=== PATIENT | male | born 1970 | race Caucasian/White ===

== ENCOUNTER 2020-10-12 07:00 | Outpatient (REF) | payer BC, SELFPAY ==
[2020-10-12 07:35] LABS: MANUAL DIFF FLAG NO
[2020-10-12 07:39] LABS: Basophils Absolute Auto 0.1 X10*3/uL (0.0-0.2); Basophils Percent Auto 0.6 % (0-2); Eosinophils Absolute Auto 0.3 X10*3/uL (0.0-0.4); Eosinophils Percent Auto 3.4 % (0-4); Hematocrit 45.4 % (42-52); Hemoglobin 15.2 g/dl (14.0-18.0); Imm Gran Abs Auto 0.04 X10*3/uL (0.00-0.03); Imm Gran Pct Auto 0.4 % (0.0-0.4); Lymphocytes Percent Auto 53.3 % (20-40); Mean Corpuscular HGB Conc 33.5 g/dl (31.0-36.0); Mean Corpuscular Hemoglobin 28.7 pg (27.0-33.0); Mean Corpuscular Volume 85.8 fL (80-98); Mean Platelet Volume 10.2 fL (9.4-12.4); Monocytes Absolute Auto 0.5 X10*3/uL (0.1-1.2); Monocytes Percent Auto 5.8 % (2-11); Neutrophils Absolute Auto 3.4 X10*3/uL (2.0-8.3); Neutrophils Percent Auto 36.5 % (45-73); Platelet Count 213 X10*3/uL (160-400); Red Blood Count 5.29 X10*6/uL (4.60-5.80); Red Cell Distribution Width 12.4 % (11.0-16.0); White Blood Count 9.4 X10*3/uL (4.8-10.8)
[2020-10-12 08:05] LABS: Alanine Aminotransferase 55 U/L (0-40); Albumin Level 4.1 g/dL (3.5-5.0); Alkaline Phosphatase 95 U/L (39-117); Anion Gap 11 (12-20); Aspartate Amino Transferase 28 U/L (5-37); Bilirubin Total 1.1 mg/dL (0.0-1.0); Blood Urea Nitrogen 20 mg/dL (9-16); Calcium 8.8 mg/dL (8.4-10.2); Carbon Dioxide 25 mmol/L (22-29); Chloride 106 mmol/L (96-108); Cholesterol 282 mg/dL; Estimated Glomerular Filt Rate > 60; Glucose Random 97 mg/dL (60-115); HDL Cholesterol 42 mg/dL; LDL Cholesterol Calculated 208 mg/dl; Potassium 4.3 mmol/L (3.3-5.1); Sodium 138 mmol/L (135-145); Total Protein 7.3 g/dL (6.5-8.0); Triglycerides 160 mg/dL
== END 2020-10-12 07:01 | disposition home or self-care (01) ==
LOC: HO.LAB 07:00
PROVIDERS: PCP Internal Medicine Geriatric Medicine; Visit Provider Internal Medicine Geriatric Medicine
DX: D72.820 Lymphocytosis (symptomatic) (principal); Z13.220 Encounter for screening for lipoid disorders
CPT/HCPCS: 36415; 80053; 80061; 85025

== ENCOUNTER 2020-10-16 15:34 | Outpatient (REF) | payer BC, SELFPAY ==
--- NOTE | ~2020-10-16 | XR_ITS ---
EXAMINATION: XR ELBOW, LEFT CLINICAL INFORMATION: Pain left elbow COMPARISON: None TECHNIQUE: Left elbow is imaged in 3 views. FINDINGS: There is a small to moderate spurring involving the olecranon. There may be a borderline medial epicondylar spur. There is no fracture or dislocation or destructive process. No elbow capsular effusion. No joint narrowing or erosive change. Normal bony mineralization. XR/XR elbow LT min 3V IMPRESSION: Small to moderate olecranon spur. Probable borderline spur medial epicondyle.
--- NOTE | ~2020-10-16 | XR_ITS ---
EXAMINATION: XR FOOT, LEFT CLINICAL INFORMATION: Pain left foot COMPARISON: None TECHNIQUE: AP, lateral, and oblique views of the left foot. FINDINGS: Bony mineralization is normal. There is no acute or healing fracture, dislocation, destructive process. There is mild hallux valgus, or approximately 21 degrees. There is some borderline spurring lateral first metatarsal head. No joint narrowing or erosive change. There are posterior and plantar calcaneal spurs. The retrocalcaneal recess is preserved. XR/XR foot LT min 3V IMPRESSION: 1. Posterior and plantar calcaneal spurs. 2. Mild hallux valgus great toe.
== END 2020-10-16 15:35 | disposition home or self-care (01) ==
LOC: HO.XRAY 15:34
PROVIDERS: PCP Internal Medicine Geriatric Medicine; Visit Provider Internal Medicine Geriatric Medicine
DX: M25.522 Pain in left elbow (principal); M79.672 Pain in left foot
CPT/HCPCS: 73080; 73630

== ENCOUNTER → 2020-11-06 09:03 | Outpatient (BNVA) | payer BC, SELFPAY | PROVIDERS: PCP Internal Medicine Geriatric Medicine; Visit Provider Physician Assistant ==

== ENCOUNTER → 2021-06-12 07:49 | Outpatient (BNVA) | payer BC, SELFPAY | PROVIDERS: Referring Provider Internal Medicine Geriatric Medicine; Visit Provider Physician Assistant Surgical ==

== ENCOUNTER → 2021-06-25 08:17 | Outpatient (BNVA) | payer BC, SELFPAY | PROVIDERS: PCP Internal Medicine Geriatric Medicine; Visit Provider Surgery ==

== ENCOUNTER → 2021-07-04 07:23 | Outpatient (BNVA) | payer BC, SELFPAY | PROVIDERS: PCP Internal Medicine Geriatric Medicine; Visit Provider Surgery ==

== ENCOUNTER → 2021-07-29 07:40 | Outpatient (BNVA) | payer BC, SELFPAY | PROVIDERS: PCP Internal Medicine Geriatric Medicine; Visit Provider Surgery ==

== ENCOUNTER 2021-08-01 07:01 | Outpatient (REF) | payer BC, SELFPAY ==
--- NOTE | ~2021-08-01 | XR_ITS ---
EXAMINATION: XR CHEST CLINICAL INFORMATION: Morbid obesity secondary to excess calories. COMPARISON: None TECHNIQUE: 2 views of the chest were obtained. FINDINGS: No significant abnormality is noted involving the heart, lungs, mediastinum, bony thorax or soft tissues. XR/XR chest 2V IMPRESSION: No acute cardiopulmonary process.
[2021-08-01 07:26] LABS: MANUAL DIFF FLAG NO
[2021-08-01 07:49] LABS: Basophils Percent Auto 0.5 % (0-2); Eosinophils Absolute Auto 0.4 X10*3/uL (0.0-0.4); Eosinophils Percent Auto 4.4 % (0-4); Hematocrit 44.7 % (42.0-52.0); Hemoglobin 15.4 g/dl (14.0-18.0); Imm Gran Abs Auto 0.02 X10*3/uL (0.00-0.03); Imm Gran Pct Auto 0.3 % (0.0-0.4); Lymphocytes Absolute Auto 3.8 X10*3/uL (1.2-4.9); Lymphocytes Percent Auto 48.1 % (20-40); Mean Corpuscular HGB Conc 34.5 g/dl (31.0-36.0); Mean Corpuscular Hemoglobin 29.2 pg (27.0-33.0); Mean Corpuscular Volume 84.8 fL (80.0-98.0); Mean Platelet Volume 10.4 fL (9.4-12.4); Monocytes Absolute Auto 0.6 X10*3/uL (0.1-1.2); Monocytes Percent Auto 7.1 % (2-11); Neutrophils Absolute Auto 3.2 x10*3/uL (2.0-8.3); Neutrophils Percent Auto 39.6 % (45-73); Platelet Count 189 X10*3/uL (160-400); Red Blood Count 5.27 X10*6/uL (4.60-5.80); Red Cell Distribution Width 12.4 % (11.0-16.0); White Blood Count 7.9 X10*3/uL (4.8-10.8)
[2021-08-01 07:56] LABS: Estimated Average Glucose 108 mg/dL; Hemoglobin A1c % 5.4 %
[2021-08-01 07:58] LABS: Alanine Aminotransferase 61 U/L (0-40); Albumin Level 4.1 g/dL (3.5-5.0); Alkaline Phosphatase 100 U/L (39-117); Anion Gap 10 (12-20); Aspartate Amino Transferase 25 U/L (5-37); Bilirubin Total 0.8 mg/dL (0.0-1.0); Blood Urea Nitrogen 18 mg/dL (9-16); C Reactive Protein 1.31 mg/dL (< or = 0.50); Calcium 9.5 mg/dL (8.4-10.2); Carbon Dioxide 27 mmol/L (22-29); Chloride 108 mmol/L (96-108); Cholesterol 269 mg/dL; Estimated Glomerular Filt Rate > 60; Glucose Random 105 mg/dL (60-115); HDL Cholesterol 38 mg/dL; Iron 66 mcg/dL (45-160); LDL Cholesterol Calculated 197 mg/dl; Percent Iron Saturation 18 % (15-50); Potassium 4.5 mmol/L (3.3-5.1); Sodium 140 mmol/L (135-145); Total Iron Binding Capacity 367 mcg/dL (228-428); Total Protein 7.3 g/dL (6.5-8.0); Triglycerides 170 mg/dL; Unsaturated Iron Binding 301 ug/dL
[2021-08-01 08:23] LABS: Ferritin 189 ng/mL (20-250); TSH reflex Free T4 2.29 uIU/mL (0.32-4.0); Vitamin D 25-OH Total 9.1 ng/mL (>30)
[2021-08-01 08:52] LABS: Insulin 14 uU/mL (2-29)
[2021-08-01 09:12] LABS: Folate 14.4 ng/mL (> or = 4.0); Vitamin B12 605 pg/mL (200-900)
[2021-08-04 13:36] LABS: Calcium (PTHI) 9.6 mg/dL (8.6-10.3); PTHI 68 pg/mL (14-64)
[2021-08-05 01:46] LABS: Zinc 94 mcg/dL (60-130)
[2021-08-06 05:40] LABS: Vitamin B1 6 nmol/L (8-30)
[2021-08-06 09:46] LABS: Vitamin A 40 mcg/dL (38-98)
== END 2021-08-01 07:02 | disposition home or self-care (01) ==
LOC: HO.XRAY 07:01
PROVIDERS: PCP Internal Medicine Geriatric Medicine; Visit Provider Surgery
DX: E66.01 Morbid (severe) obesity due to excess calories (principal); E78.5 Hyperlipidemia, unspecified; I10 Essential (primary) hypertension; J45.909 Unspecified asthma, uncomplicated; K21.9 Gastro-esophageal reflux disease without esophagitis
CPT/HCPCS: 36415; 71046; 80053; 80061; 82306; 82607; 82728; 82746; 83036; 83525; 83540; 83970; 84425; 84443; 84590; 84630; 85025; 86140

== ENCOUNTER 2021-08-05 16:18 | Outpatient (REF) | payer BC, SELFPAY ==
[2021-08-06 08:33] LABS: H Pylori Breath Test Positive (Negative)
== END 2021-08-05 16:19 | disposition home or self-care (01) ==
LOC: HO.LNP 16:18
PROVIDERS: Surgery; PCP Internal Medicine Geriatric Medicine; Referring Provider Internal Medicine Geriatric Medicine; Visit Provider Physician Assistant Surgical
DX: E66.01 Morbid (severe) obesity due to excess calories (principal); I10 Essential (primary) hypertension; E78.5 Hyperlipidemia, unspecified; K21.9 Gastro-esophageal reflux disease without esophagitis; J45.909 Unspecified asthma, uncomplicated; Z11.0 Encounter for screening for intestinal infectious diseases
CPT/HCPCS: 83013

== ENCOUNTER → 2021-08-07 08:15 | Outpatient (BNVA) | payer BC, SELFPAY | PROVIDERS: PCP Internal Medicine Geriatric Medicine; Visit Provider Dietitian, Registered | DX: E66.9 Obesity, unspecified (principal); Z68.38 Body mass index [BMI] 38.0-38.9, adult | CPT/HCPCS: 97802 ==

== ENCOUNTER → 2021-08-18 08:04 | Outpatient (BNVA) | payer BC, SELFPAY | PROVIDERS: PCP Internal Medicine Geriatric Medicine; Visit Provider Surgery | DX: E66.9 Obesity, unspecified (principal); Z68.39 Body mass index [BMI] 39.0-39.9, adult ==

== ENCOUNTER → 2021-08-25 07:22 | Outpatient (REF) | payer BC, SELFPAY ==
--- NOTE | ~2021-08-25 | US_ITS ---
EXAMINATION: US COMPLETE ABDOMEN WITH LIVER ELASTOGRAPHY CLINICAL INFORMATION: Morbid obesity. COMPARISON: None. TECHNIQUE: Real-time imaging of the abdominal viscera. Noninvasive ultrasound liver fibrosis assessment is performed using Rigo ElastPQ point quantification shear wave elastography (2D-SWE) with a C5-2 MHz transducer. Multiple elastography samples are obtained. FINDINGS: PANCREAS: The pancreas is mostly obscured by overlying gas. ABDOMINAL AORTA: The aorta appears ectatic but is of normal caliber. INFERIOR VENA CAVA: Visualized portions are normal. LIVER: The liver demonstrates normal size, lobulated contour and echogenicity. No focal lesion or intrahepatic biliary duct dilatation. The right lobe measures 16.3 cm in length. The left lobe measures 10.2 cm in length. Portal flow is hepatopedal. Shear wave liver elastography median stiffness is 1.47 m/s (reference: normal median stiffness is 1.3 m/s or less). IQR/median stiffness to assess sampling precision is 0.12 (reference: good quality data set is IQR/median stiffness of 0.15 or less). GALLBLADDER: The gallbladder has been surgically removed. COMMON BILE DUCT: Normal in caliber measuring 0.4 cm in diameter. RIGHT KIDNEY: Normal. No hydronephrosis. No renal calculi or focal parenchymal lesions. The kidney measures 14.5 cm in maximum dimension. LEFT KIDNEY: There is an anechoic cyst in the midpole measuring 1.7 x 1.3 x 1.5 cm. No hydronephrosis. No renal calculi or focal parenchymal lesions. The kidney measures 11.9 cm in maximum dimension. SPLEEN: Normal. The spleen measures 11.0 cm in maximum dimension. FREE FLUID: None. US/US abdomen comp w elastography IMPRESSION: 1. Lobulated mildly echogenic liver consistent with hepatic steatosis. No focal lesion. The aorta is ectatic. There is an anechoic 1.7 cm cyst in the mid pole of the left kidney. No caliectasis or hydronephrosis in either kidney. 2. Liver elastography: 1.47 cm corresponding to ACLD ruled out. REFERENCE: Society of Radiologists in Ultrasound Liver Stiffness Thresholds (2020): LIVER STIFFNESS THRESHOLDS: *Liver Stiffness equal or less than 1.3 m/s: High probability of being normal. *Liver Stiffness less than 1.7 m/s: In the absence of other known clinical signs, rules out compensated advanced chronic liver disease. *Liver Stiffness 1.7-2.1 m/s: Suggestive of compensated advanced chronic liver disease but need further test for confirmation. *Liver Stiffness over 2.1 m/s: Rules in compensated advanced chronic liver disease. *Liver Stiffness over 2.4 m/s: Suggestive of clinically significant portal hypertension. QUALITY OF DATA SET: *IQR/Median value equal or less than 0.15 implies a quality data set. *IQR/Median value over 0.15 implies a poor quality data set. SIGNIFICANT CHANGE FROM PRIOR EXAM: Significant change if liver stiffness measurement is 10% or greater from prior exam. OTHER CONSIDERATIONS: The stage of liver fibrosis may be overestimated in the setting of acute hepatitis, liver inflammation, elevated liver function tests, hepatic vascular congestion, obstructive cholestasis, non-fasting state, and infiltrative diseases such as amyloidosis and lymphoma. In some patients with NAFLD, the liver stiffness thresholds for compensated advanced chronic liver disease may be lower. In causes other than viral hepatitis and NAFLD, liver stiffness thresholds are not well established.
--- NOTE | ~2021-08-25 | FL_ITS ---
EXAMINATION: XR FLUOROSCOPY UPPER GI WITH AIR CLINICAL INFORMATION: Morbid to severe obesity COMPARISON: None TECHNIQUE: Routine upper GI air-contrast study was performed. FINDINGS: Following oral administration of thick barium and effervescent granules there is normal propagation of bolus from the oral cavity through the pharynx, esophagus into stomach without any evidence of obstruction, narrowing or stricture. The course, caliber and peristalsis of the stomach, duodenal bulb and the sweep is normal. There is no evidence of gastroesophageal reflux or hiatal hernia. Incidental finding of cholecystectomy. FLUOROSCOPY TIME: 1.5 minutes DOSE AREA PRODUCT: 31.434 uGy-m2 (microgray-meter squared) FL/FL upper GI w air IMPRESSION: Unremarkable upper GI exam.
--- NOTE | 2021-08-25 07:42 | ECG_ITS ---
Test Reason : e66.01 Blood Pressure : / mmHG Vent. Rate : 062 BPM Atrial Rate : 062 BPM P-R Int : 184 ms QRS Dur : 108 ms QT Int : 410 ms P-R-T Axes : 063 020 042 degrees QTc Int : 416 ms Normal sinus rhythm Normal ECG When compared with ECG of 23-MAR-2019 18:21, Incomplete right bundle branch block is no longer Present Referred By: Dino Pressley Electronically Signed By:ISAURO CABRERA MD
== END ==
LOC: HO.SL 07:22
PROVIDERS: PCP Internal Medicine Geriatric Medicine; Visit Provider Surgery
DX: E66.01 Morbid (severe) obesity due to excess calories (principal); I10 Essential (primary) hypertension; E78.5 Hyperlipidemia, unspecified; K21.9 Gastro-esophageal reflux disease without esophagitis; J45.909 Unspecified asthma, uncomplicated; G47.30 Sleep apnea, unspecified
CPT/HCPCS: 74246; 76705; 76981; 93005; 95806

== ENCOUNTER → 2021-09-09 08:05 | Outpatient (BNVA) | payer BC, SELFPAY | PROVIDERS: PCP Internal Medicine Geriatric Medicine; Referring Provider Surgery; Visit Provider Dietitian, Registered ==

== ENCOUNTER → 2021-09-15 16:14 | Outpatient (BNVA) | payer BC, SELFPAY | PROVIDERS: PCP Internal Medicine Geriatric Medicine; Referring Provider Internal Medicine Geriatric Medicine; Visit Provider Physician Assistant Surgical ==

== ENCOUNTER 2021-09-15 16:37 | Outpatient (REF) | payer BC, SELFPAY ==
[2021-09-18 14:32] LABS: H Pylori Breath Test Negative (Negative)
== END 2021-09-15 16:38 | disposition home or self-care (01) ==
LOC: HO.LNP 16:37
PROVIDERS: Visit Provider Physician Assistant Surgical
DX: Z01.818 Encounter for other preprocedural examination (principal)
CPT/HCPCS: 83013

== ENCOUNTER → 2021-09-17 08:09 | Outpatient (BNVA) | payer BC, SELFPAY | PROVIDERS: PCP Internal Medicine Geriatric Medicine; Visit Provider Surgery ==

== ENCOUNTER → 2021-09-30 08:16 | Outpatient (BNVA) | payer BC, SELFPAY | PROVIDERS: PCP Internal Medicine Geriatric Medicine; Referring Provider Surgery; Visit Provider Dietitian, Registered ==

== ENCOUNTER → 2021-10-08 08:19 | Outpatient (BNVA) | payer BC, SELFPAY | PROVIDERS: PCP Internal Medicine Geriatric Medicine; Visit Provider Surgery ==

== ENCOUNTER → 2021-10-17 08:16 | Outpatient (BNVA) | payer BC, SELFPAY | PROVIDERS: PCP Internal Medicine Geriatric Medicine; Referring Provider Surgery; Visit Provider Dietitian, Registered | DX: Z13.89 Encounter for screening for other disorder (principal) ==

== ENCOUNTER 2021-12-24 08:42 | Emergency (ER) | payer BC, SELFPAY ==
--- NOTE | ~2021-12-24 | CT_ITS ---
EXAMINATION: CT ABDOMEN AND PELVIS WITHOUT CONTRAST CLINICAL INFORMATION: Right flank pain COMPARISON: Previous CT of the abdomen and pelvis November 2012 and abdominal ultrasound August 2021 TECHNIQUE: Multidetector volumetric imaging was performed from the superior aspect of the liver through the pubic symphysis. Sagittal and coronal reformatted images were obtained on the technologist's workstation. This CT examination was performed using dose optimization techniques as appropriate, variously including the following: *Automated exposure control *Adjustment of mA and/or kV according to patient size (this includes techniques or standardized protocols for targeted exams where dose is matched to indication/reason for exam; i.e. extremities or head) *Use of iterative reconstruction technique DLP: 973 mGy-cm FINDINGS: LUNG BASES: The visualized lung bases are unremarkable. LIVER, GALLBLADDER, AND BILIARY TREE: The liver is low in attenuation suggestive of fatty infiltration. The gallbladder is been removed. No focal liver lesion or biliary duct dilatation. PANCREAS: Unremarkable. SPLEEN: Unremarkable. ADRENAL GLANDS: Unremarkable. KIDNEYS AND URETERS: There is a small 2 mm nonobstructing stone in the upper pole of the left kidney. No right renal stone is seen. No hydronephrosis, ureteral dilatation or ureteral stone is seen. BLADDER: Unremarkable. GASTROINTESTINAL TRACT: The small and large bowel are unremarkable. The appendix is unremarkable. ABDOMINAL WALL: No significant hernia is appreciated. LYMPH NODES: Normal. VASCULAR: Unremarkable. PELVIC VISCERA: Unremarkable. OSSEOUS STRUCTURES: Unremarkable. CT/CT abdomen pelvis wo con IMPRESSION: No acute findings. Small nonobstructing left renal stone. Fatty liver. Fleischner guidelines were followed.
[2021-12-24 08:48] VITALS: BP 153/93; PULSE 78; RESP 17; TEMP 35.7; O2SAT 97; BMI 38.7
[2021-12-24 09:02] LABS: MANUAL DIFF FLAG NO
[2021-12-24 09:04] LABS: Basophils Absolute Auto 0.1 X10*3/uL (0.0-0.2); Basophils Percent Auto 0.6 % (0-2); Eosinophils Absolute Auto 0.5 X10*3/uL (0.0-0.4); Eosinophils Percent Auto 5.7 % (0-4); Hematocrit 43.7 % (42.0-52.0); Hemoglobin 15.2 g/dl (14.0-18.0); Imm Gran Abs Auto 0.03 X10*3/uL (0.00-0.03); Imm Gran Pct Auto 0.4 % (0.0-0.4); Lymphocytes Absolute Auto 1.9 X10*3/uL (1.2-4.9); Lymphocytes Percent Auto 23.3 % (20-40); Mean Corpuscular HGB Conc 34.8 g/dl (31.0-36.0); Mean Corpuscular Hemoglobin 29.1 pg (27.0-33.0); Mean Corpuscular Volume 83.7 fL (80.0-98.0); Mean Platelet Volume 9.7 fL (9.4-12.4); Monocytes Absolute Auto 0.7 X10*3/uL (0.1-1.2); Monocytes Percent Auto 8.3 % (2-11); Neutrophils Percent Auto 61.7 % (45-73); Platelet Count 186 X10*3/uL (160-400); Red Blood Count 5.22 X10*6/uL (4.60-5.80); Red Cell Distribution Width 12.7 % (11.0-16.0); White Blood Count 8.1 X10*3/uL (4.8-10.8)
[2021-12-24 09:27] LABS: Appearance Urine CLEAR; Color Urine YELLOW; Glucose Urine UA NEG (NEG); Leukocyte Esterase Urine NEG (NEG); Nitrite Urine NEG (NEG); Specific Gravity - Urine 1.025 (1.005-1.025); Urine Blood NEG (NEG); Urine Ketones NEG (NEG); Urine Protein NEG (NEG-TRACE)
[2021-12-24 09:30] LABS: Alanine Aminotransferase 61 U/L (0-40); Albumin Level 4.2 g/dL (3.5-5.0); Alkaline Phosphatase 90 U/L (39-117); Anion Gap 11 (12-20); Aspartate Amino Transferase 37 U/L (5-37); Bilirubin Total 1.2 mg/dL (0.0-1.0); Blood Urea Nitrogen 17 mg/dL (9-16); Calcium 9.3 mg/dL (8.4-10.2); Carbon Dioxide 25 mmol/L (22-29); Chloride 106 mmol/L (96-108); Creatinine Clr Calc Pharmacy 133.2; Estimated Glomerular Filt Rate > 60; Glucose Random 102 mg/dL (60-115); Sodium 138 mmol/L (135-145); Total Protein 7.5 g/dL (6.5-8.0)
[2021-12-24 11:18] VITALS: BP 143/97; PULSE 76; RESP 18; TEMP 36.8; O2SAT 99
--- NOTE | 2021-12-24 11:36 | ED.GENADULT ---
HPI - General Adult General Chief complaint: Abdominal Pain Stated complaint: back pain Time Seen by Provider: 12/24/21 11:28 Source: patient Mode of arrival: ambulatory Limitations: no limitations History of Present Illness HPI narrative: 51-year-old male presents the emergency department complaining of right flank pain for the past 3 days he denies any lifting or strains he states is worse with movement he is taking some Tylenol without relief. Patient did not divulge this but is currently speaking with her to surgery about having gastric sleeve done. NC from his most recent the hand appear normal patient has normally elevated bilirubin and ALT and AST just minimally elevated which is the same today he denies any chest pain denies any dysuria he states he has never had kidney stones in past. Related Data Home Medications Medication Instructions Recorded Confirmed albuterol sulfate 90 mcg/actuation 2 puff PO Q4-6H PRN 11/06/20 aerosol inhaler beclomethasone dipropionate 80 1 - 2 inh INHALATION BID 11/06/20 mcg/actuation HFA breath activated aerosol rosuvastatin 5 mg tablet 5 mg PO DAILY 11/06/20 Previous Rx's Medication Instructions Recorded hydrochlorothiazide 25 mg tablet 25 mg PO DAILY #30 tab 07/08/21 rosuvastatin 5 mg tablet 5 mg PO DAILY #30 tab 07/08/21 cholecalciferol (vitamin D3) 125 125 mcg PO DAILY #30 cap 08/05/21 mcg (5,000 unit) capsule amoxicillin 500 mg capsule 1,000 mg PO BID 14 Days #56 cap 08/06/21 clarithromycin 500 mg tablet 500 mg PO Q12H 14 Days #28 tab 08/06/21 omeprazole 20 mg capsule,delayed 20 mg PO BID 14 Days #28 cap 08/06/21 release amoxicillin 500 mg capsule 500 mg PO Q12H #28 cap 08/12/21 clarithromycin 500 mg tablet 500 mg PO Q12H #28 tab 08/12/21 omeprazole 40 mg capsule,delayed 40 mg PO DAILY #14 cap 08/12/21 release thiamine HCl (vitamin B1) 100 mg 100 mg PO DAILY #30 tab 09/09/21 tablet Allergies Allergy/AdvReac Type Severity Reaction Status Date / Time shellfish derived Allergy Severe DIFFICULTY Verified 07/04/21 11:33 BREATHING atorvastatin [Lipitor] Allergy Unknown Unknown Verified 07/04/21 11:33 shell fish Allergy Unknown breathing Uncoded 07/04/21 11:33 Review of Systems Review of Systems: Review of systems: General: Patient denies any fever chills recent illness or falls Musculoskeletal: Denies back pain or body aches or other injuries HEENT: denies headache, runny nose, ear pain Respiratory: denies shortness of breath, cough Cardiovascular: no chest pain or palpitations : denies dysuria, frequency Abdomen: no nausea vomiting denies abdominal pain Extremities: no swelling, no pain Skin: no diaphoresis Yes all other systems are reviewed and are negative PMFSH Past Medical History Medical History (Updated 12/24/21 @ 13:14 by Lan Allison DO) Asthma Back pain GERD (gastroesophageal reflux disease) High cholesterol Hyperlipidemia Hypertension Morbid obesity Surgical History (Updated 06/25/21 @ 09:11 by KIM Echevarria) Hx of cholecystectomy S/P panniculectomy Family History Family History (Updated 06/25/21 @ 09:13 by KIM Echevarria) Father No problems noted. Mother No problems noted. Brother No problems noted. Brother No problems noted. Sister No problems noted. Sister No problems noted. Sister No problems noted. Sister No problems noted. Sister No problems noted. Son No problems noted. Son No problems noted. Son No problems noted. 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 Physical Exam ED Vital Signs: Vital Signs - 24 hr 12/24/21 08:48 12/24/21 11:18 Temperature 96.3 F L 98.3 F Pulse Rate 78 76 Respiratory Rate 17 18 Blood Pressure 153/93 H 143/97 H Pulse Oximetry 97 99 BMI result Body Mass Index 38.7 General: Well-appearing well-nourished in no signs of distress HEENT: Normocephalic atraumatic Neck: No signs of JVD, no masses no tenderness or lymphadenopathy Cardiovascular: Regular rate and rhythm Respiratory: Clear to auscultation bilaterally Abdomen: Soft nontender no masses no CVA tenderness Extremities: Normal pedal pulses no signs of edema Skin: Dry warm no rashes Back: No tenderness full ROM Medical Decision Making MDM Narrative Medical decision making narrative: Right flank pain not reproducible with him the patient moves his urine is normal the patient is adamant that this be a kidney stone a sensation her CT scan with patient on fluids. 1313 CT does not show any acute disease process patient looks well start the patient Flexeril have patient call his primary care doctor. Lab Data Result diagrams: 12/24/21 08:57 12/24/21 08:57 Labs: Lab Results 12/24/21 12/24/21 12/24/21 Range/Units 08:57 08:57 09:18 WBC 8.1 (4.8-10.8) X10*3/uL RBC 5.22 (4.60-5.80) X10*6/uL Hgb 15.2 (14.0-18.0) g/dl Hct 43.7 (42.0-52.0) % MCV 83.7 (80.0-98.0) fL MCH 29.1 (27.0-33.0) pg MCHC 34.8 (31.0-36.0) g/dl RDW 12.7 (11.0-16.0) % Plt Count 186 (160-400) X10*3/uL MPV 9.7 (9.4-12.4) fL Immature Gran % (Auto) 0.4 (0.0-0.4) % Neut % (Auto) 61.7 (45-73) % Lymph % (Auto) 23.3 (20-40) % [place] % (Auto) 8.3 (2-11) % Eos % (Auto) 5.7 H (0-4) % Baso % (Auto) 0.6 (0-2) % Lymph # (Auto) 1.9 (1.2-4.9) X10*3/uL [place] # (Auto) 0.7 (0.1-1.2) X10*3/uL Eos # (Auto) 0.5 H (0.0-0.4) X10*3/uL Baso # (Auto) 0.1 (0.0-0.2) X10*3/uL Abs Immat Gran (auto) 0.03 (0.00-0.03) X10*3/uL Absolute Neuts (auto) 5.0 (2.0-8.3) x10*3/uL Absolute Nucleated RBC 0.000 (0.0-0.012) X10*3/uL Nucleated RBC % (auto) 0.0 (0.0-0.2) /100WBC Sodium 138 (135-145) mmol/L Potassium 4.0 (3.3-5.1) mmol/L Chloride 106 (96-108) mmol/L Carbon Dioxide 25 (22-29) mmol/L Anion Gap 11 L (12-20) BUN 17 H (9-16) mg/dL Creatinine 0.88 (0.5-1.4) mg/dL Estim Creat Clear Calc 133.2 Estimated GFR > 60 Random Glucose 102 (60-115) mg/dL Calcium 9.3 (8.4-10.2) mg/dL Total Bilirubin 1.2 H (0.0-1.0) mg/dL AST 37 D (5-37) U/L ALT 61 H (0-40) U/L Alkaline Phosphatase 90 (39-117) U/L Total Protein 7.5 (6.5-8.0) g/dL Albumin 4.2 (3.5-5.0) g/dL Urine Color YELLOW Urine Appearance CLEAR Urine pH 6.0 (5.0-8.0) Ur Specific Mcbrides 1.025 (1.005-1.025) Urine Protein NEG (NEG-TRACE) MG/DL Urine Glucose (UA) NEG (NEG) MG/DL Urine Ketones NEG (NEG) MG/DL Urine Blood NEG (NEG) Urine Nitrite NEG (NEG) Ur Leukocyte Esterase NEG (NEG) Discharge Plan Discharge Clinical Impression: Back pain Patient Disposition: Home, Self-Care Instructions: Back Pain (ED) Additional Instructions: Your x-ray and labs are all normal the CT scan does not show any acute disease process please call follow-up care doctor. Prescriptions: No Action rosuvastatin 5 mg tablet 5 mg PO DAILY Qty: 30 2RF hydrochlorothiazide 25 mg tablet 25 mg PO DAILY Qty: 30 2RF cholecalciferol (vitamin D3) 125 mcg (5,000 unit) capsule 125 mcg PO DAILY Qty: 30 2RF omeprazole 20 mg capsule,delayed release(DR/EC) 20 mg PO BID 14 Days Qty: 28 0RF clarithromycin 500 mg tablet 500 mg PO Q12H 14 Days Qty: 28 0RF amoxicillin 500 mg capsule 1,000 mg PO BID 14 Days Qty: 56 0RF omeprazole 40 mg capsule,delayed release(DR/EC) 40 mg PO DAILY Qty: 14 0RF amoxicillin 500 mg capsule 500 mg PO Q12H Qty: 28 0RF clarithromycin 500 mg tablet 500 mg PO Q12H Qty: 28 0RF thiamine HCl (vitamin B1) 100 mg tablet 100 mg PO DAILY Qty: 30 2RF albuterol sulfate 90 mcg/actuation HFA aerosol inhaler 2 puff PO Q4-6H PRN0RF Qvar RediHaler 80 mcg/actuation HFA aerosol breath activated 1 - 2 inh inhalation BID 0RF
[2021-12-24] MEDS: 0.9 % Sodium Chloride 1,000 ML 999 ML IV (11:55)
[2021-12-24] MEDS: Ketorolac Tromethamine 15 MG/ML VIAL IVPUSH (11:58)
--- NOTE | 2021-12-24 12:04 | PC.NURSE ---
Pt extremly confused and aggitated. Stating that she doesnt know how she got here and wants to leave. Pt states that she does not have to listen to us Pt was redirected and provided with callbell and tv remote
== END 2021-12-24 13:21 | disposition home or self-care (01) ==
PROVIDERS: Emergency Provider Student in an Organized Health Care Education/Training Program; PCP Internal Medicine Geriatric Medicine
DX: M54.50 Low back pain, unspecified (principal); R10.9 Unspecified abdominal pain; Z79.899 Other long term (current) drug therapy
CPT/HCPCS: 36415; 74176; 80053; 81003; 85025; 96361; 96374; 99284; J1885

== ENCOUNTER 2022-08-27 09:15 | Observation (INO) | payer OTHER, SELFPAY ==
[2022-08-27] VITALS (9 sets, daily range): BP systolic 130–163; BP diastolic 70–101; PULSE 68–81; RESP 15–18; TEMP 36.2–36.8; O2SAT 95–97; BMI 38.7; BMI 39.0
--- NOTE | 2022-08-27 | ECG_ITS ---
Test Reason : chest pain Blood Pressure : / mmHG Vent. Rate : 074 BPM Atrial Rate : 074 BPM P-R Int : 180 ms QRS Dur : 102 ms QT Int : 398 ms P-R-T Axes : 047 011 043 degrees QTc Int : 441 ms Normal sinus rhythm Normal ECG When compared with ECG of 25-AUG-2021 07:49, No significant change was found Referred By: Generic ED Physician Electronically Signed By:ANDREW HUGHES
--- NOTE | ~2022-08-27 | XR_ITS ---
EXAMINATION: XR CHEST CLINICAL INFORMATION: Chest pain COMPARISON: 08/01/2021 TECHNIQUE: 2 views of the chest were obtained. FINDINGS: No significant abnormality is noted involving the heart, lungs, mediastinum, bony thorax or soft tissues. Surgical clips are noted in the upper abdomen. XR/XR chest 2V IMPRESSION: Unremarkable examination.
--- NOTE | 2022-08-27 09:30 | ED_ITS ---
HPI - Chest Pain General Chief Complaint: Chest Pain Stated Complaint: chest pain Time Seen by Provider: 08/27/22 09:30 Source: patient Mode of arrival: ambulatory Limitations: no limitations History of Present Illness HPI narrative: 52 yo male with history of obesity, JOSE, asthma, GERD, HTN, HLD presents to the ER for evaluation of 4/10 chest pressure that started this morning at 3am when he got up to go to the bathroom. It starts in his epigastric area, radiates to the left arm and back. The back pain is sharp while the chest pains are more of a pressure. He is not SOB, nauseated or diaphoretic. He reports increased stress at work. Has family history of cardiac disease, no personal history. Reports not on meds for BP, never refilled his water pill. Not a smoker. He states he had a similar presentation 3 years ago and was told it was GERD - it did not radiate to the left arm at that time. He took his omeprazole this morning with minimal relief. MD complaint: chest heaviness Pertinent past history: asthma Onset (ago): hour(s) (6.5) Timing of current episode: constant Prior episodes: Yes Onset: during rest Pain location: epigastric Pain radiation: left arm and back Severity: moderate Pain scale (0-10): 4 Quality: tightness Relieving factors: other (belching) Exacerbating factors: nothing Context: non compliance with medication Treatment prior to arrival: other (PPI) Risk Factors Coronary artery disease risk factors: hyperlipidemia and hypertension Thoracic aortic dissection risk factors: none Related Data Home Medications Medication Instructions Recorded Confirmed albuterol sulfate 90 mcg/actuation 2 puff PO Q4-6H PRN 11/06/20 aerosol inhaler beclomethasone dipropionate 80 1 - 2 inh inhalation BID 11/06/20 mcg/actuation HFA breath activated aerosol rosuvastatin 5 mg tablet 5 mg PO DAILY 11/06/20 Previous Rx's Medication Instructions Recorded hydrochlorothiazide 25 mg tablet 25 mg PO DAILY #30 tabs 07/08/21 rosuvastatin 5 mg tablet 5 mg PO DAILY #30 tabs 07/08/21 cholecalciferol (vitamin D3) 125 125 mcg PO DAILY #30 caps 08/05/21 mcg (5,000 unit) capsule amoxicillin 500 mg capsule 1,000 mg PO BID 14 days #56 caps 08/06/21 clarithromycin 500 mg tablet 500 mg PO Q12H 14 days #28 tabs 08/06/21 omeprazole 20 mg capsule,delayed 20 mg PO BID 14 days #28 caps 08/06/21 release amoxicillin 500 mg capsule 500 mg PO Q12H #28 caps 08/12/21 clarithromycin 500 mg tablet 500 mg PO Q12H #28 tabs 08/12/21 omeprazole 40 mg capsule,delayed 40 mg PO DAILY #14 caps 08/12/21 release thiamine HCl (vitamin B1) 100 mg 100 mg PO DAILY #30 tabs 09/09/21 tablet cyclobenzaprine 5 mg tablet 5 mg PO NEEDED PRN muscle spasm 12/24/21 #20 tabs Allergies Allergy/AdvReac Type Severity Reaction Status Date / Time shellfish derived Allergy Severe DIFFICULTY Verified 07/04/21 11:33 BREATHING atorvastatin [Lipitor] Allergy Unknown Unknown Verified 07/04/21 11:33 shell fish Allergy Unknown breathing Uncoded 07/04/21 11:33 Review of Systems Review of Systems: Yes all other systems are reviewed and are negative [facility] Past Medical History Medical History Asthma Back pain GERD (gastroesophageal reflux disease) High cholesterol Hyperlipidemia Hypertension Morbid obesity Surgical History Hx of cholecystectomy S/P panniculectomy Family History Family History Father No problems noted. Mother No problems noted. Brother No problems noted. Brother No problems noted. Sister No problems noted. Sister No problems noted. Sister No problems noted. Sister No problems noted. Sister No problems noted. Son No problems noted. Son No problems noted. Son No problems noted. 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 Oriented X3. No acute distress. Eyes: Pupils equal, round and reactive to light. ENT: Pharynx normal. Neck: Normal inspection. Neck supple. No JVD CVS: Normal heart rate and rhythm. Pulses normal. Respiratory: No respiratory distress. Breath sounds normal. Abdomen: Soft, round with moderate epigastric tenderness, +BS x4 Skin: Skin warm and dry. Normal skin color. Normal skin turgor. No rashes. Extremities: No lower extremity edema. No calf tenderness Neuro: Oriented X 3. No motor deficit. No sensory deficit. Course Course Course Narrative: 52 yo male with history of obesity, asthma, GERD, HTN, HLD, JOSE who presents to the ER for evaluation of epigastric pain that radiates to the chest, left arm and back. Started at 03:00. Reports it as a pressure, similar story in the past and it was GERD, did not radiate to the arm at that time. Will give a dose of aspirin. Concern for ACS, although he does have epigastric tenderness on examination. EKG without STEMI. Reevaluation(s) Reevaluation #1: First troponin is negative. He reports relief with belching. He continues to have epigastric tenderness. Will treat with GI cocktail, repeat troponin 3 hours. Reevaluation #2: 2nd trop negative. ongoing chest pressure and burning now but left arm pain is back. Case d/w Dr. Zee as well as Dr. Phan - recommend admission for obs, ECHO. [facility]. Consultations Consultation #1: Cardiology - Syl[place] Medications Administered Discontinued Medications Generic Name Dose Route Start Last Admin Trade Name Freq PRN Reason Stop Dose Admin Al Hydroxide/Mg Hydroxide 30 ml 08/27/22 10:52 08/27/22 11:02 Magnesium Hydrox/Alum Hydrox 30 Ml Oral.Susp PO 08/27/22 10:53 30 ml ONCE ONE Administration Aspirin 325 mg 08/27/22 09:32 08/27/22 09:39 Aspirin 325 Mg Tablet PO 08/27/22 09:33 325 mg ONCE ONE Administration Belladonna Alkaloids/Phenobarbital 10 ml 08/27/22 10:52 08/27/22 11:04 Phenobarb/Hyoscy/Atropine/Scop 10 Ml Elixir PO 08/27/22 10:53 10 ml ONCE ONE Administration Lidocaine HCl 15 ml 08/27/22 10:52 08/27/22 11:02 Lidocaine Hcl Viscous 2 % 15 Ml Solution MUCOUS MEM 08/27/22 10:53 15 ml ONCE ONE Administration Medical Decision Making Differential Diagnosis Differential Diagnoses: The differential diagnosis associated with the presentation includes unstable angina, GERD, ACS, reflux, MSK pain, dissection, cervical radiculopathy Admission/Observation Consideration of admission/observation: Escalation of care including admission/observation considered admit Consult Healthcare Provider Management of the patient was discussed with: Hospitalist and Blender Laborer Dr. Phan recommending admission for observation, echocardiogram which has been ordered. Lab Data MDM Lab Attestation statement: I reviewed the patient's lab results. negative trop x2 08/27/22 09:31 08/27/22 09:31 Labs: Lab Results 08/27/22 08/27/22 08/27/22 Range/Units 09:31 09:31 09:31 WBC 7.7 (4.8-10.8) X10*3/uL RBC 5.37 (4.60-5.80) X10*6/uL Hgb 15.4 (14.0-18.0) g/dl Hct 44.5 (42.0-52.0) % MCV 82.9 (80.0-98.0) fL MCH 28.7 (27.0-33.0) pg MCHC 34.6 (31.0-36.0) g/dl RDW 12.6 (11.0-16.0) % Plt Count 207 (160-400) X10*3/uL MPV 9.6 (9.4-12.4) fL Immature Gran % (Auto) 0.4 (0.0-0.4) % Neut % (Auto) 47.8 (45-73) % Lymph % (Auto) 43.5 H (20-40) % [place] % (Auto) 5.5 (2-11) % Eos % (Auto) 2.1 (0-4) % Baso % (Auto) 0.7 (0-2) % Lymph # (Auto) 3.3 (1.2-4.9) X10*3/uL [place] # (Auto) 0.4 (0.1-1.2) X10*3/uL Eos # (Auto) 0.2 (0.0-0.4) X10*3/uL Baso # (Auto) 0.1 (0.0-0.2) X10*3/uL Abs Immat Gran (auto) 0.03 (0.00-0.03) X10*3/uL Absolute Neuts (auto) 3.7 (2.0-8.3) x10*3/uL Absolute Nucleated RBC 0.000 (0.0-0.012) X10*3/uL Nucleated RBC % (auto) 0.0 (0.0-0.2) /100WBC Sodium 137 (135-145) mmol/L Potassium 4.0 (3.3-5.1) mmol/L Chloride 107 (96-108) mmol/L Carbon Dioxide 23 (22-29) mmol/L Anion Gap 11 L (12-20) BUN 21 H (9-16) mg/dL Creatinine 0.83 (0.5-1.4) mg/dL Estim Creat Clear Calc 139.7 Estimated GFR > 60 Random Glucose 115 (60-115) mg/dL Calcium 9.2 (8.4-10.2) mg/dL Total Bilirubin 0.8 (0.0-1.0) mg/dL AST 34 (5-37) U/L ALT 71 H (0-40) U/L Alkaline Phosphatase 91 (39-117) U/L Troponin I High Sens < 3.5 (<3.5-35.0) ng/L Total Protein 7.5 (6.5-8.0) g/dL Albumin 4.2 (3.5-5.0) g/dL 08/27/22 Range/Units 12:21 WBC (4.8-10.8) X10*3/uL RBC (4.60-5.80) X10*6/uL Hgb (14.0-18.0) g/dl Hct (42.0-52.0) % MCV (80.0-98.0) fL MCH (27.0-33.0) pg MCHC (31.0-36.0) g/dl RDW (11.0-16.0) % Plt Count (160-400) X10*3/uL MPV (9.4-12.4) fL Immature Gran % (Auto) (0.0-0.4) % Neut % (Auto) (45-73) % Lymph % (Auto) (20-40) % [place] % (Auto) (2-11) % Eos % (Auto) (0-4) % Baso % (Auto) (0-2) % Lymph # (Auto) (1.2-4.9) X10*3/uL [place] # (Auto) (0.1-1.2) X10*3/uL Eos # (Auto) (0.0-0.4) X10*3/uL Baso # (Auto) (0.0-0.2) X10*3/uL Abs Immat Gran (auto) (0.00-0.03) X10*3/uL Absolute Neuts (auto) (2.0-8.3) x10*3/uL Absolute Nucleated RBC (0.0-0.012) X10*3/uL Nucleated RBC % (auto) (0.0-0.2) /100WBC Sodium (135-145) mmol/L Potassium (3.3-5.1) mmol/L Chloride (96-108) mmol/L Carbon Dioxide (22-29) mmol/L Anion Gap (12-20) BUN (9-16) mg/dL Creatinine (0.5-1.4) mg/dL Estim Creat Clear Calc Estimated GFR Random Glucose (60-115) mg/dL Calcium (8.4-10.2) mg/dL Total Bilirubin (0.0-1.0) mg/dL AST (5-37) U/L ALT (0-40) U/L Alkaline Phosphatase (39-117) U/L Troponin I High Sens < 3.5 (<3.5-35.0) ng/L Total Protein (6.5-8.0) g/dL Albumin (3.5-5.0) g/dL Independent Interpretation I performed an independent interpretation of an: EKG and Plain X-Ray Interpretation: EKG with normal sinus rhythm, ventricular rate 74 beats per minute, normal NH interval, normal QTC, no ST segment elevations or depressions. Chest x-ray with clear lungs, no pleural effusion, cardiomegaly or infiltrate. Radiology Impression Discussion of test interpretation with radiology: I have reviewed the radiologist's reading. Radiologist Impression: XR/XR chest 2V IMPRESSION: Unremarkable examination. ? External Record Review External record reviewed: Office record, Outpatient record, Prior outpatient labs and Prior outpatient radiology Tests considered The following testing was considered but not selected: CTA of the chest considered but not performed, less likely dissection or PE. Prescription Management I considered prescription management with: Pain Medication Held off on morphine given his pain was a 4/10. Chronic Conditions Patient?s care impacted by: Hypertension and Other (Obesity and hyperlipidemia) Scores Heart Score History: -2- highly suspicious ECG: -0- normal Age: -1- >45 - <65 Risk factory: -1- 1 or 2 risk factors Troponin: -0- < or = normal limit Score: 4 Risk: 16.6% Critical Care Time Critical Care Time Critical Care Time: Yes Total Critical Care Time: 36 Attestation: I have personally provided critical care time exclusive of time spent on separately billable procedures. Time includes review of lab data, radiology results, discussion with consultants, and monitoring for potential decompensation. Intervention performed as documented. Discharge Plan Discharge Clinical Impression: Chest pain Patient Disposition: Admitted As Inpatient
[2022-08-27 09:37] LABS: MANUAL DIFF FLAG NO
[2022-08-27] MEDS: Aspirin 325 MG TABLET PO (09:39)
[2022-08-27 09:40] LABS: Basophils Absolute Auto 0.1 X10*3/uL (0.0-0.2); Basophils Percent Auto 0.7 % (0-2); Eosinophils Absolute Auto 0.2 X10*3/uL (0.0-0.4); Eosinophils Percent Auto 2.1 % (0-4); Hematocrit 44.5 % (42.0-52.0); Hemoglobin 15.4 g/dl (14.0-18.0); Imm Gran Abs Auto 0.03 X10*3/uL (0.00-0.03); Imm Gran Pct Auto 0.4 % (0.0-0.4); Lymphocytes Absolute Auto 3.3 X10*3/uL (1.2-4.9); Lymphocytes Percent Auto 43.5 % (20-40); Mean Corpuscular HGB Conc 34.6 g/dl (31.0-36.0); Mean Corpuscular Hemoglobin 28.7 pg (27.0-33.0); Mean Corpuscular Volume 82.9 fL (80.0-98.0); Mean Platelet Volume 9.6 fL (9.4-12.4); Monocytes Absolute Auto 0.4 X10*3/uL (0.1-1.2); Monocytes Percent Auto 5.5 % (2-11); Neutrophils Absolute Auto 3.7 x10*3/uL (2.0-8.3); Neutrophils Percent Auto 47.8 % (45-73); Platelet Count 207 X10*3/uL (160-400); Red Blood Count 5.37 X10*6/uL (4.60-5.80); Red Cell Distribution Width 12.6 % (11.0-16.0); White Blood Count 7.7 X10*3/uL (4.8-10.8)
--- NOTE | 2022-08-27 09:44 | PC.NURSE ---
Patient to X ray
[2022-08-27 10:11] LABS: Alanine Aminotransferase 71 U/L (0-40); Albumin Level 4.2 g/dL (3.5-5.0); Alkaline Phosphatase 91 U/L (39-117); Anion Gap 11 (12-20); Aspartate Amino Transferase 34 U/L (5-37); Bilirubin Total 0.8 mg/dL (0.0-1.0); Blood Urea Nitrogen 21 mg/dL (9-16); Calcium 9.2 mg/dL (8.4-10.2); Carbon Dioxide 23 mmol/L (22-29); Chloride 107 mmol/L (96-108); Creatinine Clr Calc Pharmacy 139.7; Estimated Glomerular Filt Rate > 60; Glucose Random 115 mg/dL (60-115); Sodium 137 mmol/L (135-145); Total Protein 7.5 g/dL (6.5-8.0)
[2022-08-27 10:17] LABS: Troponin-I High Sensitivity < 3.5 ng/L (<3.5-35.0)
[2022-08-27] MEDS: Magnesium Hydrox/Alum Hydrox 30 ML ORAL.SUSP PO (11:02)
[2022-08-27] MEDS: Lidocaine HCl Viscous 2 % 15 ML SOLUTION MUCOUS MEM (11:02)
[2022-08-27] MEDS: PHENobarb/Hyoscy/Atropine/Scop 10 ML ELIXIR PO (11:04)
--- NOTE | 2022-08-27 11:37 | PC.NURSE ---
Patient resting comfortably reports improvement with GI cocktail will CTM
[2022-08-27 12:59] LABS: Troponin-I High Sensitivity < 3.5 ng/L (<3.5-35.0)
--- NOTE | 2022-08-27 13:36 | PC.NURSE ---
Patient complaint of left arm hurting again starting in back of neck radiating down arm provider aware will CTM
--- NOTE | 2022-08-27 13:42 | CA_ITS ---
Transthoracic Echocardiogram Patient (Last, First, Middle): Jose Canseco H Gender: Male Date of : 1970 Age: 52 Procedure Date: 08/27/2022 Procedure Type: Transthoracic Echocardiogram Location: ER Height: 177.8 cm Weight: 122.47 kg BSA: 2.37 m2 Heart Rate: 67 bpm BP: 156 / 101 mmHg Bone Plant Supervisor: SB Referring MD: Adriana SESAY Symptoms: chest pain Study Quality: Adequate w contrast ECG Rhythm: Sinus Conclusions: - The left ventricular systolic function is normal. The calculated ejection fraction is 59% by biplane method. - No obvious valvular pathology seen on this study. Findings Procedure Information Contrast agent, definity, is being given per protocol without apparent complications. Left Ventricle Normal left ventricular cavity size. There is normal left ventricular wall thickness. The left ventricular systolic function is normal. The calculated ejection fraction is 59% by biplane method. There is no evidence of regional wall motion abnormalities. Diastolic function is normal for age. There is mild septal asymmetric hypertrophy. Right Ventricle Normal right ventricular cavity size and systolic function. Atria Both atria are normal in size. Aortic Valve There is a normal trileaflet aortic valve. There is no aortic valve stenosis. There is no aortic valve regurgitation. Mitral Valve The mitral valve appears normal. There is no mitral valve regurgitation. There is no mitral valve stenosis. Pulmonic Valve The pulmonic valve is likely normal. Tricuspid Valve Normal tricuspid valve structure. There is no tricuspid valve regurgitation. Tricuspid regurgitation envelope is inadequate for calculation of right ventricular systolic pressure. Great Vessels The asc aorta is normal in size. Venous The inferior vena cava is normal in size and collapses less than 50% with inspiration. Pericardium/Pleural There is no evidence of pericardial effusion. Prior Study Comparison No significant change compared to prior study dated: 07/22/2017. Recommendations, Care & Conclusions No obvious valvular pathology seen on this study. Measurements 2D Linear Measurements IVSd: 1.20 0.6-0.9/0.6-1.0 cm LVIDd: 5.01 3.9-5.3/4.2-5.9 cm LVIDd Index: 2.11 2.4-3.2/2.2-3.1 cm/m2 LVIDs: 3.59 2.0-3.6 cm LVPWd: 1.02 0.7-1.1 cm LA Diam: 4.40 2.7-3.8/3.0-4.0 cm LAIDs Index: 1.86 1.5-2.3 cm/m2 LV Mass: 322.16 67-162/88-224 g LV Mass Index: 135.93 43-95/49-115 g/m2 LVOT Diam: 2.60 3.0+(-)1.3 cm 2D Systolic Function EF 4C: 62.60 >55% EF 2C: 55.00 >55% EF BiP: 59.30 >55% Mitral Valve MV Pk E: 0.78 MV PK A: 0.54 MV Decel Time: 197.00 E/A: 1.40 E'Lateral: 10.60 E'Medial: 7.07 E/E' Med: 11.00 E/E' Lat: 7.40 PHT: 58.00 MVA PHT: 3.79 Decel [place]: 3.95 Aortic Valve AoV Pk Michael: 1.14 AoV Pk Grad: 5.00 CONOR: 4.80 LVOT LVOT Pk Michael: 1.04 LVOT Mn Michael: 0.70 LVOT VTI: 0.24 LVOT Pk Grad: 4.00 LVOT Mn Grad: 2.00 LVOT Diam: 2.60 LVOT Area: 5.31 Diastolic Function MV Pk E: 0.78 MV Pk A: 0.54 E/A: 1.40 E'Medial: 7.07 E/E' Med: 11.00 E' Laterial: 10.60 E/E' Lat: 7.40 Right Ventricle TAPSE (mm): 19.10 TVS' Mihcael: 13.10 Tricuspid Valve RA Press: 8.00 Great Vessels Aorta Sinus of Valsalva: 3.50 2.0-3.5 cm Ao Asc: 3.60 2.1-3.4 cm Pulmonary Veins Pulm Vein S/D 1.40 Pulmonary Valve PV Pk Michael: 0.75 Peak PV Grad: 2.00 Updated in Other Vendor System with Status of Final Shola Phan MD electronically signed on 08/27/2022 3:56:00 PM with status of Final
--- NOTE | 2022-08-27 13:45 | PC.NURSE ---
VErified with provider patient can eat drink will CTM
--- NOTE | 2022-08-27 14:05 | PC.NURSE ---
certified nuclear medicine technologist at bedside
--- NOTE | 2022-08-27 14:11 | PM.IMHP ---
History of Present Illness Date of Service: 08/27/22 Chief Complaint: chest pain 52 yo male with history of obesity, JOSE, asthma, GERD, HTN, HLD here with chest pain onset at 3 am when he got to use bathrooom. He describes presure pain of 5/10 associated with numbess to the left arm and sharp radiating pain to the back. He thought it was acid reflux so he took prilosec and somehow got better and reported to work later and later decides to seek help in the ED. No prior history of heart issues, mother does have h/o of CAD. ED work up = normal troponin, no ischemic changes on ECG. Pain has subsided substantially following GI cocktail. Cardiology advises echo and will assess later Review of Systems Review of Systems: Gen: no fever Resp: no sob, no cough CV: no chest, no OSORIO, no leg edema GI: No n/v, no abd pain Neuro: No confusion [facility] Medical History Asthma Back pain GERD (gastroesophageal reflux disease) High cholesterol Hyperlipidemia Hypertension Morbid obesity Family History Father No problems noted. Mother No problems noted. Brother No problems noted. Brother No problems noted. Sister No problems noted. Sister No problems noted. Sister No problems noted. Sister No problems noted. Sister No problems noted. Son No problems noted. Son No problems noted. Son No problems noted. 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 Meds Allergies Allergy/AdvReac Type Severity Reaction Status Date / Time shellfish derived Allergy Severe DIFFICULTY Verified 07/04/21 11:33 BREATHING atorvastatin [Lipitor] Allergy Unknown Unknown Verified 07/04/21 11:33 shell fish Allergy Unknown breathing Uncoded 07/04/21 11:33 Active Medications: Current Medications Pharmacy Consult (Consult Rx Perform Med Rec) 1 each MISCELLANE ONCE PRN PRN Reason: Consult order Home Medications Medication Instructions Recorded Confirmed Last Taken Type albuterol sulfate 90 mcg/actuation 2 puff PO Q4-6H PRN 11/06/20 Unknown History aerosol inhaler omeprazole 40 mg capsule,delayed 40 mg PO DAILY@0630 08/27/22 08/27/22 08/27/22 History release Physical Exam Vital Signs and Narrative: Vital Signs: Last Vital Signs Temp 98.3 F 08/27/22 10:31 Pulse 72 08/27/22 12:39 Resp 18 08/27/22 13:49 BP 157/92 H 08/27/22 13:49 Pulse Ox 96 08/27/22 12:39 O2 Del Method 08/27/22 12:39 BMI result Body Mass Index 38.7 Const: Other: General: AO X 3, no acute distress Resp: CTA bilateral CVS: S1,S2,RRR GI: +BS, NT, no distention Skin: No rash Neuro: motor grossly intact Psych: appropriate affect Results Labs 08/27/22 09:31 08/27/22 09:31 Labs: Laboratory Results - last 24 hr 08/27/22 08/27/22 08/27/22 09:31 09:31 09:31 MCV 82.9 MCH 28.7 MCHC 34.6 RDW 12.6 Plt Count 207 MPV 9.6 Immature Gran % (Auto) 0.4 Neut % (Auto) 47.8 Lymph % (Auto) 43.5 H [place] % (Auto) 5.5 Eos % (Auto) 2.1 Baso % (Auto) 0.7 Lymph # (Auto) 3.3 [place] # (Auto) 0.4 Eos # (Auto) 0.2 Baso # (Auto) 0.1 Abs Immat Gran (auto) 0.03 Absolute Neuts (auto) 3.7 Absolute Nucleated RBC 0.000 Nucleated RBC % (auto) 0.0 Anion Gap 11 L Estim Creat Clear Calc 139.7 Estimated GFR > 60 Random Glucose 115 Calcium 9.2 Total Bilirubin 0.8 AST 34 ALT 71 H Alkaline Phosphatase 91 Troponin I High Sens < 3.5 Total Protein 7.5 Albumin 4.2 08/27/22 12:21 MCV MCH MCHC RDW Plt Count MPV Immature Gran % (Auto) Neut % (Auto) Lymph % (Auto) [place] % (Auto) Eos % (Auto) Baso % (Auto) Lymph # (Auto) [place] # (Auto) Eos # (Auto) Baso # (Auto) Abs Immat Gran (auto) Absolute Neuts (auto) Absolute Nucleated RBC Nucleated RBC % (auto) Anion Gap Estim Creat Clear Calc Estimated GFR Random Glucose Calcium Total Bilirubin AST ALT Alkaline Phosphatase Troponin I High Sens < 3.5 Total Protein Albumin Imaging Radiologist's Impressions: Impressions Chest X-Ray 08/27/22 09:45 IMPRESSION: Unremarkable examination. Assessment and Plan (1) Chest pain: Status: Acute Plan 52/ m with obesity, JOSE, asthma, GERD, HTN, HLD here with chest pain with mixed typical and atypical chest pain #Chest pain--serial trops, echo, cardiology to assess #HTN--resume home meds #GERD --prilosec #HLD--statin lovenox obs Time Spent With Patient Time: Total time managing care of this patient today ____ minutes. Quality Stroke Does the patient have a stroke diagnosis?: No VTE Prior VTE?: No VTE Risk Level:: Medical - moderate - high VTE Device Contraindication: Treatment Not Indicated VTE Drug Contraindication: N/A - Med Ordered
[2022-08-27 14:38] LABS: COVID-19 Test Negative (Negative); IDNOW Serial# BCCEAD1C
--- NOTE | 2022-08-27 14:43 | HE.PHANOTE ---
reviewed medications with patient
[2022-08-27] MEDS: Enoxaparin Sodium 40 MG/0.4 ML SYRINGE SUBCUT (15:14)
[2022-08-27] MEDS: Omeprazole 40 MG CAPSULE.DR PO (15:14)
[2022-08-27] MEDS: 0.9 % Sodium Chloride Flush 3 ML SYRINGE IVFLUSH (15:15)
[2022-08-28 04:00] VITALS: BP 119/73; PULSE 66; RESP 18; TEMP 36.4; O2SAT 92
[2022-08-28] MEDS: Omeprazole 40 MG CAPSULE.DR PO (05:45)
[2022-08-28 07:46] VITALS: BP 141/85; PULSE 76; RESP 14; TEMP 36.7; O2SAT 96
[2022-08-28] MEDS: 0.9 % Sodium Chloride Flush 3 ML SYRINGE IVFLUSH (08:31)
--- NOTE | 2022-08-28 08:40 | PM.CNCAR ---
History of Present Illness History of Present Illness Date of Service: 08/28/22 Chief complaint: chest pain Narrative: This is a cardiology consultation regarding chest pain. Patient does not have any known cardiac issues. No history of any coronary artery disease or myocardial infarction or cardiomyopathy. He presents with complaints of burning sensation that starts in the epigastric area and goes up all the way into the chest. It was thought to be possibly cardiac and he was admitted. However, there is a question if this is all acid reflux. Patient states he has actually had acid reflux going back many years. He used to see Dr. Garcia in the past but not recently. Apparently has underwent EGD in the past. Current symptoms are as have the burning sensations chest in the epigastric area and intense and then goes up into the chest. Nonexertional. In fact he walks a lot in his job and during that time he does not get worse. When he lies down flat or when he eats, it does however get worse. These are more indicative of GI in nature of discomfort than cardiac. No other symptoms like shortness of breath. He is overweight. Mother apparently had cardiac issues in her 60s. Review of Systems Review of Systems: Yes all other systems are reviewed and are negative Constitutional: Constitutional: Reports as per HPI Eyes: Eyes: Reports as per HPI ENT: Reports as per HPI Cardiovascular: Cardiovascular: Reports as per HPI, Denies acrocyanosis, Denies cool extremities, Denies chest pain, Denies leg edema, Denies lightheadedness, Denies palpitations and Denies dyspnea Respiratory: Respiratory: Reports as per HPI, Reports no additional respiratory complaints and Denies dyspnea Gastrointestinal: Gastrointestinal: Reports as per HPI, Reports no additional gastrointestinal complaints and Reports dyspepsia Genitourinary: Genitourinary: Reports no additional male genitourinary complaints and Reports as per HPI Musculoskeletal: Musculoskeletal: Reports no additional musculoskeletal complaints and Reports as per HPI Integumentary/Breasts: Skin/Breast: Reports system reviewed and no additional complaints, except as docu Neurologic: Reports system reviewed and no additional complaints, except as documented and Reports as per HPI Psychiatric: Psychiatric: Reports no additional psychiatric complaints and Reports as per HPI Endocrine: Endocrine: Reports no additional endocrine complaints, Reports as per HPI and Denies palpitations Hematologic/Lymphatic: Hematologic/Lymphatic: Reports no additional hematologic/lymphatic complaints and Reports as per HPI Allergic/Immunologic: Allergic/Immunologic: Reports no additional allergic/immunologic complaints and Reports as per [facility] Past Medical History Medical History Asthma Back pain GERD (gastroesophageal reflux disease) High cholesterol Hyperlipidemia Hypertension Morbid obesity Family History Family History (Updated 08/28/22 @ 08:41 by Shola Phan MD) Father No problems noted. Mother Myocardial infarction Brother No problems noted. Brother No problems noted. Sister No problems noted. Sister No problems noted. Sister No problems noted. Sister No problems noted. Sister No problems noted. Son No problems noted. Son No problems noted. Son No problems noted. Surgical History Surgical History Hx of cholecystectomy S/P panniculectomy Social History Social History Household Members: Spouse and Children Housing: House Do you presently have visiting nurse or other home services: No Alcohol intake: current Alcohol intake frequency: a few times a month Patient Tobacco Use Status: Never used Tobacco Use of substances other than those prescribed or required for medical reasons: No Currently Displaying Signs/Symptoms of Drug Intoxication Withdrawal: No Have you been hit, kicked, punched, or otherwise hurt by someone within the past year? 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 Meds Allergies Allergy/AdvReac Type Severity Reaction Status Date / Time shellfish derived Allergy Severe DIFFICULTY Verified 07/04/21 11:33 BREATHING atorvastatin [Lipitor] Allergy Unknown Unknown Verified 07/04/21 11:33 shell fish Allergy Unknown breathing Uncoded 07/04/21 11:33 Active Medications: Current Medications Acetaminophen (Acetaminophen 325 Mg Tablet) 650 mg PO Q6H PRN PRN Reason: Pain, Mild (Pain Scale 1-3) Acetaminophen (Acetaminophen Supp 650 Mg Supp.Rect) 650 mg NE Q6H PRN PRN Reason: Pain, Mild (Pain Scale 1-3) Albuterol Sulfate (Albuterol Sulfate 90 Mcg 8 Gm Inhaler) 2 puff INHALE Q4H PRN PRN Reason: Shortness Of Breath Enoxaparin Sodium (Enoxaparin Sodium 40 Mg/0.4 Ml Syringe) 40 mg SUBCUT Q24H [facility] Last Admin: 08/27/22 15:14 Dose: 40 mg Melatonin (Melatonin 3 Mg Tablet) 6 mg PO BEDTIME PRN PRN Reason: Insomnia Omeprazole (Omeprazole 40 Mg Capsule.Dr) 40 mg PO DAILY@629 [facility] Last Admin: 08/28/22 05:45 Dose: 40 mg Pharmacy Consult (Consult Rx Perform Med Rec) 1 each MISCELLANE ONCE PRN PRN Reason: Consult order Sodium Chloride (0.9 % Sodium Chloride Flush 3 Ml Syringe) 3 ml IVFLUSH QSHIFT [facility] Last Admin: 08/28/22 08:31 Dose: 3 ml Home Medications Medication Instructions Recorded Confirmed Last Taken Type albuterol sulfate 90 mcg/actuation 2 puff PO Q4-6H PRN Shortness Of 11/06/20 08/27/22 Unknown History aerosol inhaler Breath omeprazole 40 mg capsule,delayed 40 mg PO DAILY@62908/27/22 08/27/22 08/27/22 History release Physical Exam Vital Signs: Vital Signs: Last Vital Signs Temp 98.0 F 08/28/22 07:46 Pulse 76 08/28/22 07:46 Resp 14 08/28/22 07:46 BP 141/85 H 08/28/22 07:46 Pulse Ox 96 08/28/22 07:46 O2 Del Method 08/28/22 07:46 BMI result Body Mass Index 39.0 Const: General: comfortable and no acute distress Orientation/consciousness: patient oriented x3 HEENT: Other: Unremarkable Head: Yes normal to inspection Neck: Neck: Yes normal visual inspection Chest: Chest palpation & inspection: normal inspection of the chest Resp: Auscultation: clear to auscultation bilaterally Cardio: Palpation: normal PMI Heart sounds: S1 normal heart sound present, S2 normal heart sound present, no gallops, no murmurs and no rubs GI: Palpation (GI): Soft to palpation Back/Spine/Pelvis: Other: unremarkable Skin: General skin exam: no rashes or lesions noted Neuro: General: patient oriented x3 Extrem: General: Yes normal to inspection Psych: Mental Status: mental status grossly normal Objective Labs and Meds 08/27/22 09:31 08/27/22 09:31 Lab results: Laboratory Results - last 24 hr 08/27/22 08/27/22 08/27/22 09:31 09:31 09:31 WBC 7.7 RBC 5.37 Hgb 15.4 Hct 44.5 MCV 82.9 MCH 28.7 MCHC 34.6 RDW 12.6 Plt Count 207 MPV 9.6 Immature Gran % (Auto) 0.4 Neut % (Auto) 47.8 Lymph % (Auto) 43.5 H Montgomery % (Auto) 5.5 Eos % (Auto) 2.1 Baso % (Auto) 0.7 Lymph # (Auto) 3.3 Montgomery # (Auto) 0.4 Eos # (Auto) 0.2 Baso # (Auto) 0.1 Abs Immat Gran (auto) 0.03 Absolute Neuts (auto) 3.7 Absolute Nucleated RBC 0.000 Nucleated RBC % (auto) 0.0 Sodium 137 Potassium 4.0 Chloride 107 Carbon Dioxide 23 Anion Gap 11 L BUN 21 H Creatinine 0.83 Estim Creat Clear Calc 139.7 Estimated GFR > 60 Random Glucose 115 Calcium 9.2 Total Bilirubin 0.8 AST 34 ALT 71 H Alkaline Phosphatase 91 Troponin I High Sens < 3.5 Total Protein 7.5 Albumin 4.2 COVID-19 ([facility]) COVID-19 Clin Com 08/27/22 08/27/22 12:21 14:12 WBC RBC Hgb Hct MCV MCH MCHC RDW Plt Count MPV Immature Gran % (Auto) Neut % (Auto) Lymph % (Auto) Montgomery % (Auto) Eos % (Auto) Baso % (Auto) Lymph # (Auto) Montgomery # (Auto) Eos # (Auto) Baso # (Auto) Abs Immat Gran (auto) Absolute Neuts (auto) Absolute Nucleated RBC Nucleated RBC % (auto) Sodium Potassium Chloride Carbon Dioxide Anion Gap BUN Creatinine Estim Creat Clear Calc Estimated GFR Random Glucose Calcium Total Bilirubin AST ALT Alkaline Phosphatase Troponin I High Sens < 3.5 Total Protein Albumin COVID-19 ([facility]) Negative COVID-19 Clin Com See Note ECG Interpretation: EKG with sinus rhythm at 74/Min; no significant ST-T changes and otherwise unremarkable. Imaging Radiologist's impression: Impressions Chest X-Ray 08/27/22 09:45 IMPRESSION: Unremarkable examination. Assessment and Plan (1) Chest pain: Status: Acute (2) Obesity: Status: Acute (3) GERD (gastroesophageal reflux disease): Status: Acute (4) Hypertension: Status: Acute Plan Patient admitted with epigastric/chest burning but most suggestive of gastroesophageal reflux and not cardiac. EKG as well as troponins are unremarkable. Echocardiogram with LVEF of 59%. No significant valvular issues. Findings as well as rationale of care discussed with patient. At this time, do not think he needs any inpatient cardiac workup. Ask GI to see for possible endoscopy. If that is not performed, then probably discharge home. Due to family history and risk factors, we can do a screening stress test as an outpatient. Time Spent With Patient Time: Total time managing care of this patient today 60 minutes. Procedures Date of Service Date of Service: 08/28/22
[2022-08-28 11:48] VITALS: BP 136/87; PULSE 76; RESP 14; TEMP 36.8; O2SAT 93
--- NOTE | 2022-08-28 11:59 | PM.DS ---
DS: Providers Provider Date of Service: 08/28/22 Date of admission: 08/27/22 14:47 Date of discharge: 08/28/22 Primary care physician: José Miguel Dobson MD Consults: 08/27/22 13:43 Consult to Cardiology Stat Consulting Provider: Shola Phan Reason for consultation: chest pain 08/27/22 14:51 Consult to Cardiology Routine Consulting Provider: Shola Phan Reason for consultation: chest pain Has provider been notified: No 08/28/22 10:20 Consult to Gastroenterology Routine Consulting Provider: Karissa Pacheco Reason for consultation: abdominal pain Has provider been notified: No Attending physician on discharge: Aden Plummer Discharging clinician: Cherelle Choudhary DS: Diagnosis Discharge Diagnosis (1) Chest pain: Status: Acute (2) Obesity: Status: Acute (3) GERD (gastroesophageal reflux disease): Status: Acute (4) Hypertension: Status: Acute DS: Summary Hospital Course Hospital Course: From H&P on day of admission 52 yo male with history of obesity, JOSE, asthma, GERD, HTN, HLD here with chest pain onset at 3 am when he got to use bathrooom. He describes presure pain of 5/10 associated with numbess to the left arm and sharp radiating pain to the back. He thought it was acid reflux so he took prilosec and somehow got better and reported to work later and later decides to seek help in the ED. No prior history of heart issues, mother does have h/o of CAD. ED work up = normal troponin, no ischemic changes on ECG. Pain has subsided substantially following GI cocktail. Cardiology advises echo and will assess later chest pain. EKG with no acute ischemic changes, cardiac enzymes have remained negative. Echocardiogram was obtained and showed no evidence of wall motion abnormality. Patient was evaluated by Cardiology and recommended no further workup as inpatient. Due to family history of cardiac disease plan for outpatient stress test. Pain seemed more GI in nature. Discussed with GI on-call, recommended to increase omeprazole to twice daily, they will follow-up in the next 1-2 weeks as outpatient. Time Spent with Patient Time attestation: Total time managing care of this patient today ____ minutes. Discharge coordination time: Greater than 30 minutes Quality: Safe Use of Opioids Does Pt have an Active Cancer Diagnosis on the Problem List?: No Quality: Stroke Does the patient have a stroke diagnosis?: No Physical Exam Vital Signs: Vital Signs: Last Vital Signs Temp 98.3 F 08/28/22 11:48 Pulse 76 08/28/22 11:48 Resp 14 08/28/22 11:48 BP 136/87 08/28/22 11:48 Pulse Ox 93 08/28/22 11:48 O2 Del Method 08/28/22 11:48 BMI result Body Mass Index 39.0 Const: General: cooperative, comfortable, alert and awake Nutritional Appearance: overweight Orientation/consciousness: patient oriented x3 Resp: Effort & Inspection: normal respiratory effort and able to speak in complete sentences Auscultation: clear to auscultation bilaterally Cardio: Rate: regular rate Heart sounds: S1 normal heart sound present and S2 normal heart sound present GI: Inspection: No distended Palpation (GI): Soft to palpation Neuro: General: patient oriented x3 and CN's II-XI intact bilaterally Extrem: General: Yes no pedal edema DS: Data Data Completed and Pending Labs on day of discharge: Laboratory Results - last 24 hr 08/27/22 08/27/22 12:21 14:12 Troponin I High Sens < 3.5 COVID-19 ([facility]) Negative COVID-19 Clin Com See Note Discharge Plan Discharge Patient Disposition: Home, Self-Care Discharge Diagnosis: chest pain ACS ruled out Referrals: Name,MD José Miguel [Primary Care Provider] - 1 Week Shola Phan MD [Physician] - 1 Week Karissa Pacheco MD [Physician] - 1 Week Discharge Medications: Continued albuterol sulfate 90 mcg/actuation HFA aerosol inhaler 2 puff PO Q4-6H PRN (Reason: Shortness Of Breath) Changed omeprazole 40 mg capsule,delayed release(DR/EC) 40 mg PO BID 30 Days Qty: 60 0RF Discharge Orders: Discharge Order (Routine); Ordered 08/28/22 Ordered By: Cherelle Choudhary Activity on Discharge: As tolerated Stand Alone Forms: Patient Portal Discharge page Care Plan Goals: see below Health Concerns: chest pain - acute coronary syndrome ruled out. Due to family history of heart disease follow-up with Cardiology in the office for possible outpatient stress test increase dose of omeprazole to twice daily until able to follow up with GI in the office Plan of Treatment: as above Assessment: see discharge summary Discharge Date/Time: 08/28/22 12:47
--- NOTE | 2022-08-28 12:03 | MHC.CM.PN ---
pt is indepedent vax x 3 no servceis will be needed
--- NOTE | 2022-08-28 12:06 | MHC.CM.PN ---
pt dcd home self care
== END 2022-08-28 12:47 | disposition home or self-care (01) ==
LOC: HO.ED 13:47 → HO.EDOVER 15:01 → HO.IMC 15:24
PROVIDERS: Physician Assistant; Admitting Provider Internal Medicine; Emergency Provider Student in an Organized Health Care Education/Training Program; PCP Internal Medicine Geriatric Medicine; Visit Provider Physician Assistant Medical
DX: R07.9 Chest pain, unspecified (principal); K21.9 Gastro-esophageal reflux disease without esophagitis; I10 Essential (primary) hypertension; E78.5 Hyperlipidemia, unspecified; J45.909 Unspecified asthma, uncomplicated; E66.9 Obesity, unspecified; Z68.38 Body mass index [BMI] 38.0-38.9, adult; Z79.02 Long term (current) use of antithrombotics/antiplatelets; Z79.899 Other long term (current) drug therapy; Z20.822 Contact with and (suspected) exposure to COVID-19
CPT/HCPCS: 36415; 71046; 80053; 84484; 85025; 87635; 93005; 93306; 96372; 99222; 99285; J1650; Q9957

== ENCOUNTER → 2022-09-08 15:41 | Outpatient (BNVA) | payer OTHER, SELFPAY | PROVIDERS: PCP Internal Medicine Geriatric Medicine; Visit Provider Internal Medicine | DX: Z13.89 Encounter for screening for other disorder (principal) ==

== ENCOUNTER 2022-09-12 07:15 | Outpatient (REF) | payer OTHER, SELFPAY ==
[2022-09-12 07:25] LABS: MANUAL DIFF FLAG NO
[2022-09-12 07:41] LABS: Basophils Absolute Auto 0.1 X10*3/uL (0.0-0.2); Basophils Percent Auto 0.7 % (0-2); Eosinophils Absolute Auto 0.3 X10*3/uL (0.0-0.4); Eosinophils Percent Auto 3.4 % (0-4); Hematocrit 45.5 % (42.0-52.0); Hemoglobin 15.4 g/dl (14.0-18.0); Imm Gran Abs Auto 0.03 X10*3/uL (0.00-0.03); Imm Gran Pct Auto 0.4 % (0.0-0.4); Lymphocytes Absolute Auto 4.5 X10*3/uL (1.2-4.9); Lymphocytes Percent Auto 52.6 % (20-40); Mean Corpuscular HGB Conc 33.8 g/dl (31.0-36.0); Mean Corpuscular Hemoglobin 28.7 pg (27.0-33.0); Mean Corpuscular Volume 84.9 fL (80.0-98.0); Monocytes Absolute Auto 0.6 X10*3/uL (0.1-1.2); Monocytes Percent Auto 6.6 % (2-11); Neutrophils Absolute Auto 3.1 x10*3/uL (2.0-8.3); Neutrophils Percent Auto 36.3 % (45-73); Platelet Count 200 X10*3/uL (160-400); Red Blood Count 5.36 X10*6/uL (4.60-5.80); Red Cell Distribution Width 12.7 % (11.0-16.0); White Blood Count 8.5 X10*3/uL (4.8-10.8)
[2022-09-12 09:11] LABS: Alanine Aminotransferase 61 U/L (0-40); Albumin Level 4.2 g/dL (3.5-5.0); Alkaline Phosphatase 105 U/L (39-117); Anion Gap 15 (12-20); Aspartate Amino Transferase 30 U/L (5-37); Bilirubin Total 0.9 mg/dL (0.0-1.0); Blood Urea Nitrogen 20 mg/dL (9-16); Calcium 9.4 mg/dL (8.4-10.2); Carbon Dioxide 25 mmol/L (22-29); Chloride 108 mmol/L (96-108); Cholesterol 286 mg/dL; Estimated Glomerular Filt Rate > 60; Glucose Random 99 mg/dL (60-115); HDL Cholesterol 46 mg/dL; LDL Cholesterol Calculated 211 mg/dl; Potassium 4.5 mmol/L (3.3-5.1); Sodium 143 mmol/L (135-145); Total Protein 7.3 g/dL (6.5-8.0); Triglycerides 148 mg/dL
[2022-09-12 09:30] LABS: Prostate Specific Antigen 0.59 ng/mL (<0.05-4.0)
== END 2022-09-12 07:16 | disposition home or self-care (01) ==
LOC: HO.LAB 07:15
PROVIDERS: PCP Internal Medicine Geriatric Medicine; Visit Provider Internal Medicine Geriatric Medicine
DX: Z12.5 Encounter for screening for malignant neoplasm of prostate (principal); R07.9 Chest pain, unspecified; N40.0 Benign prostatic hyperplasia without lower urinary tract symptoms; E78.00 Pure hypercholesterolemia, unspecified
CPT/HCPCS: 36415; 80053; 80061; 84153; 85025

== ENCOUNTER → 2022-10-08 10:55 | Outpatient (REF) | payer OTHER, SELFPAY ==
--- NOTE | 2022-10-08 10:58 | CA_ITS ---
Acquisition Time: 2022-10-08 11:02:18 Total Exercise Time: 00:11:45 Test Indications: Chest Pain Medications: Protocol: GHULAM Max HR: 157 BPM 92% of Pred: 170 BPM Max BP: 158/086 mmHG Max Work Load: 13.7 METS Exrcise stress test with exrcise 11 min 45 sec of Ghulam protocol achieving 91% MPHR without anginal symptoms, with isolated PVCs, with normotensive response to exercise without EKG changes meeting critiera for ischemia., Echo images obtained by tech at rest and immediately post peak exercise. Definity contrast used. Test reviewed with Dr. Phan. Referred By: Shola Phan Overread By: ANAHI CARDONA
== END ==
LOC: HO.CARD 10:55
PROVIDERS: PCP Internal Medicine Geriatric Medicine; Visit Provider Internal Medicine
DX: R07.2 Precordial pain (principal)
CPT/HCPCS: 93350; Q9957

== ENCOUNTER → 2022-11-17 14:51 | Outpatient (BNVA) | payer OTHER, SELFPAY | PROVIDERS: PCP Internal Medicine Geriatric Medicine; Visit Provider Nurse Practitioner Family | DX: Z13.89 Encounter for screening for other disorder (principal) ==

== ENCOUNTER 2022-12-17 13:51 | Outpatient (REF) | payer OTHER, SELFPAY ==
--- NOTE | ~2022-12-17 | US_ITS ---
EXAMINATION: US RETROPERITONEAL COMPLETE (RENAL) CLINICAL INFORMATION: Retention of urine. COMPARISON: CT abdomen pelvis 12/24/2021 ultrasound abdomen complete with elastography 08/25/2021. TECHNIQUE: Real-time imaging of the kidneys and bladder. FINDINGS: RIGHT KIDNEY: 14.6 x 5.9 x 6.0 cm (SAG x AP x TRV). The kidney is normal in size, contour, and echogenicity. Renal cortical thickness is normal. No calculi or focal parenchymal lesions. No hydronephrosis. LEFT KIDNEY: 14.0 x 7.0 x 5.7 cm (SAG x AP x TRV). The kidney is normal in size, contour, and echogenicity. Renal cortical thickness is normal. No calculi or focal parenchymal lesions. No hydronephrosis. BLADDER: Well distended and normal. Bilateral ureteral jets are demonstrated. Prevoid bladder volume is 165 mL. Postvoid bladder volume is 11 mL. OTHER: Prostate dimensions are 3.4 x 2.5 x 2.1 cm (volume 9.3 mL). US/US retroperitoneal comp IMPRESSION: Unremarkable examination.
== END 2022-12-17 13:52 | disposition home or self-care (01) ==
LOC: HO.US 13:51
PROVIDERS: PCP Internal Medicine Geriatric Medicine; Visit Provider Nurse Practitioner Family
DX: R33.9 Retention of urine, unspecified (principal); R35.1 Nocturia
CPT/HCPCS: 76770

== ENCOUNTER 2022-12-25 08:55 | Day surgery (SDC) | payer OTHER, SELFPAY ==
--- NOTE | 2022-12-24 11:59 | P.CONAN_ITS ---
Documented by User: Jovita Tellez NP 12/24/22 12:00 HPI - Anesthesia Eval Consult details Narrative: 52yo M for Upper Endoscopy and Colonoscopy [facility] Active Problems Active Problems: All Active Problems (Updated 11/17/22 @ 21:44 by SEBASTIAN Matta) Weak urinary stream (Acute) Nocturia (Acute) Incomplete bladder emptying (Acute) Colon cancer screening (Acute) Elevated LFTs (Acute) BMI 36.0-36.9,adult (Acute) Vitamin B1 deficiency (Acute) BMI 37.0-37.9, adult (Acute) H. pylori infection (Acute) Vitamin D deficiency (Acute) BMI 39.0-39.9,adult (Acute) Sleep apnea (Acute) Back pain (Acute) Asthma (Acute) GERD (gastroesophageal reflux disease) (Acute) Hyperlipidemia (Acute) Morbid obesity (Acute) Lateral epicondylitis of left elbow (Acute) Past Medical History Medical History Asthma Back pain GERD (gastroesophageal reflux disease) High cholesterol Hyperlipidemia Hypertension Morbid obesity Obesity Family History Family History Father No problems noted. Mother Myocardial infarction Brother No problems noted. Brother No problems noted. Sister No problems noted. Sister No problems noted. Sister No problems noted. Sister No problems noted. Sister No problems noted. Son No problems noted. Son No problems noted. Son No problems noted. Surgical History Surgical History History of esophagogastroduodenoscopy (EGD) Hx of cholecystectomy S/P panniculectomy Social History Social History Household Members: Spouse and Children Housing: House Do you presently have visiting nurse or other home services: No Alcohol intake: current Alcohol intake frequency: a few times a week Patient Tobacco Use Status: Never used Tobacco Use of substances other than those prescribed or required for medical reasons: No Are you DNR?: No Advance Directives: No Advance Directives Information Provided: Yes service: No Current occupational status: employed 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 [employer] Meds Allergies Allergy/AdvReac Type Severity Reaction Status Date / Time atorvastatin [Lipitor] Allergy Severe Joint Pain Verified 12/25/22 09:01 shellfish derived Allergy Severe DIFFICULTY Verified 12/25/22 09:01 BREATHING Home Medications Medication Instructions Recorded Confirmed Last Taken Type albuterol sulfate 90 mcg/actuation 2 puff PO Q4-6H PRN Shortness Of 11/06/20 12/25/22 Unknown History aerosol inhaler Breath Exam Exam Date and Time: December 24, 2022 115 Pertinent Lab Results Pertinent Lab Results: Laboratory Tests 09/12/22 09/12/22 07:24 07:24 WBC 8.5 Hgb 15.4 Hct 45.5 Plt Count 200 Sodium 143 Potassium 4.5 Chloride 108 Carbon Dioxide 25 BUN 20 H Creatinine 0.86 Assessment and Plan Assessment Anesthesia Assessment: Chart Reviewed Documented by User: Valerie Bynum MD 12/25/22 09:25 [facility] Past Medical History Medical History Asthma Back pain GERD (gastroesophageal reflux disease) High cholesterol Hyperlipidemia Hypertension Morbid obesity Obesity Family History Family History Father No problems noted. Mother Myocardial infarction Brother No problems noted. Brother No problems noted. Sister No problems noted. Sister No problems noted. Sister No problems noted. Sister No problems noted. Sister No problems noted. Son No problems noted. Son No problems noted. Son No problems noted. Family history of problems with anesthesia: No Surgical History Surgical History History of esophagogastroduodenoscopy (EGD) Hx of cholecystectomy S/P panniculectomy History of Problems with Anesthesia: No Social History Social History Household Members: Spouse and Children Housing: House Do you presently have visiting nurse or other home services: No Alcohol intake: current Alcohol intake frequency: a few times a week Patient Tobacco Use Status: Never used Tobacco Use of substances other than those prescribed or required for medical reasons: No Are you DNR?: No Advance Directives: No Advance Directives Information Provided: Yes service: No Current occupational status: employed 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 Meds Allergies Allergy/AdvReac Type Severity Reaction Status Date / Time atorvastatin [Lipitor] Allergy Severe Joint Pain Verified 12/25/22 09:01 shellfish derived Allergy Severe DIFFICULTY Verified 12/25/22 09:01 BREATHING Home Medications Medication Instructions Recorded Confirmed Last Taken Type albuterol sulfate 90 mcg/actuation 2 puff PO Q4-6H PRN Shortness Of 11/06/20 12/25/22 Unknown History aerosol inhaler Breath Exam Airway Mallampati Class: II TM Dist: >3cm Neck ROM: Full Heart: rrr Lungs: cta Assessment and Plan Assessment Anesthesia Assessment: Anesthesia Plan Discussed and Chart Reviewed Final Anesthetic Review Family History of Problems with Anesthesia: No History of Problems with Anesthesia: No NPO: Yes ASA Class: II Final Preanesthetic Review: No Changes in Pt Med Stat, Meds/Allgs Chart Reviewed and Consent Obtained/Reviewed Patient Risk: Intermediate Procedure Risk: Intermediate Anesthetic Plan Anesthetic Plan: MAC: Disposition: Standard PACU
[2022-12-25 09:02] VITALS: BMI 38.5
[2022-12-25 09:04] VITALS: BP 156/96; PULSE 64; RESP 16; TEMP 36.4; O2SAT 97
[2022-12-25] MEDS: Lactated Ringers 1,000 ML 100 ML IVCONT (09:19)
--- NOTE | 2022-12-25 09:54 | MHC.SHP ---
Pre-Procedural Eval Section A Date of Service: 12/25/22 Section B Chief Complaint: GERD r/o BE, CRC screening Details of Present Illness: Medical History Asthma Back pain GERD (gastroesophageal reflux disease) High cholesterol Hyperlipidemia Hypertension Morbid obesity Obesity Surgical History History of esophagogastroduodenoscopy (EGD) Hx of cholecystectomy S/P panniculectomy Allergies: Allergies Allergy/AdvReac Type Severity Reaction Status Date / Time atorvastatin [Lipitor] Allergy Severe Joint Pain Verified 12/25/22 09:01 shellfish derived Allergy Severe DIFFICULTY Verified 12/25/22 09:01 BREATHING Review of Systems Review of Systems Comment: Ten point ROS negative Exam Exam Comment: Gen appear: No acute distress HEENT: no icterus Chest: No overt resp distress Abd: soft, nontender, nondistended Psych: Stable affect, answering questions appropriately Neuro: A/Ox3 noted to move all extremities spontaneously Ext: no peripheral edema Plan Diagnosis/Plan: Unchanged I have reviewed the history and physical and performed a pertinent physical examination on my patient. No changes have occurred unless specified. Time Spent With Patient Time: Total time managing care of this patient today ____ minutes.
--- NOTE | 2022-12-25 09:55 | P.OP_ITS ---
Operative Note Operative Note Date of Service: 12/25/22 Narrative: Procedure: Esophagogastroduodenoscopy and colonoscopy Endoscopist: Karissa Pacheco MD Indication: GERD, r/o BE, CRC screening Anesthesia Provider: Dr Valerie Sloan Anesthesia Type: MAC ? Instrument: Olympus GIF-H190 and PCF-190L EGD Procedure:?? The procedure, indications, preparation and potential complications were reviewed with the patient, who indicated understanding and gave written informed consent to proceed. A physical exam was performed. The endoscope was introduced through the bite-block, and advanced to the second part of duodenum. The mucosa was carefully examined on slow withdrawal of the endoscope. EGD Findings:? * Esophagus:? Normal mucosa noted in the entire esophagus. The Z line was at 40 cm. Middle and lower esophagus biopsies were taken to rule out eosinophilic esophagitis * Stomach:? Normal mucosa was noted in the stomach. * Duodenum:? Normal mucosa was noted in the duodenum to the extent examined. Colonoscopy Procedure:? The patient was then turned for the colonoscopy. A digital rectal exam was performed which was normal.? The colonoscope was then inserted through the anus and advanced through the colon to the cecum at 75 cm,and terminal ileum.? Appendiceal orifice and ileocecal valve were identified.? Mucosa was carefully examined under high definition white light as the instrument was slowly withdrawn in a retrograde panoramic fashion. Retroflexion was performed in rectum. The procedure was not difficult. There were no immediate obvious complications. The quality of the prep was BBPS: 3+3+3 = excellent Withdrawal time 16 minutes. Limitations: No limitations.? Findings: Mucosa: Normal to cecum and terminal ileum. Protruding lesions: * Three sessile polyps of size 2-4 mm for noted in the sigmoid polyp. Cold snare polypectomy was performed on the larger polyps and a small 2 mm polyp was excised using cold biopsy forceps. The polyps were completely removed and retrieved. * Medium external hemorrhoids without stigmata of recent bleeding. Impression: 1. Normal esophagus (biopsy) 2. Normal stomach 3. Normal duodenum 4. Normal colon and terminal ileum mucosa 5. Three polyps removed from sigmoid colon 6. External hemorrhoids Recommendations:?? * Follow biopsy results. Our office will call or send a letter with results within 7-10 days. * Avoid NSAIDs and smoking. * Repeat colonoscopy in 3 years if all the polyps are adenoma. * Follow up in GI office as scheduled. Above has been reviewed with the patient. Educational hand outs were provided at discharge.
[2022-12-25 10:44] VITALS: BP 123/79; PULSE 79; RESP 16; TEMP 36.2; O2SAT 93
[2022-12-25 10:59] VITALS: BP 134/93; PULSE 70; RESP 16; TEMP 36.8; O2SAT 95
== END 2022-12-25 11:31 | disposition home or self-care (01) ==
PROVIDERS: PCP Internal Medicine Geriatric Medicine; Visit Provider Internal Medicine
PROC: (CPT 45385; principal; 2022-12-25 13:00)
DX: Z12.11 Encounter for screening for malignant neoplasm of colon (principal); K63.5 Polyp of colon; K64.8 Other hemorrhoids; K21.9 Gastro-esophageal reflux disease without esophagitis; K76.0 Fatty (change of) liver, not elsewhere classified; R79.89 Other specified abnormal findings of blood chemistry; I10 Essential (primary) hypertension; E78.00 Pure hypercholesterolemia, unspecified; J45.909 Unspecified asthma, uncomplicated; E66.01 Morbid (severe) obesity due to excess calories; Z68.41 Body mass index [BMI] 40.0-44.9, adult; Z88.8 Allergy status to other drugs, medicaments and biological substances; Z79.899 Other long term (current) drug therapy; Z90.49 Acquired absence of other specified parts of digestive tract; Z98.890 Other specified postprocedural states
CPT/HCPCS: 45385; 45380; 43239; 88305

== ENCOUNTER 2023-09-02 16:11 | Outpatient (REF) | payer OTHER, SELFPAY ==
--- NOTE | ~2023-09-02 | XR_ITS ---
EXAMINATION: XR CHEST 2 VIEWS CLINICAL INFORMATION: Right upper posterior and anterior chest pain. COMPARISON: Chest radiographs dated 08/27/2022. TECHNIQUE: Frontal and lateral views of the chest were obtained. FINDINGS: The heart, great vessels, pulmonary vasculature and mediastinum are normal. The lungs show no focal infiltrate, effusion or pneumothorax. A soft tissue shadow overlaps the lateral left base, similar chest radiographs dated 08/27/2022 and 08/01/2021. There is no acute osseous abnormality. XR/XR chest 2V IMPRESSION: No active cardiopulmonary disease.
--- NOTE | ~2023-09-02 | XR_ITS ---
EXAMINATION: XR FOOT, LEFT CLINICAL INFORMATION: Chronic left heel pain. COMPARISON: Radiograph left foot 10/16/2020. TECHNIQUE: AP, lateral, and oblique views of the left foot. FINDINGS: No acute fracture or subluxation. Stable plantar calcaneal spurs. Stable mild hallux valgus deformity. Unchanged small chronic avulsion fracture along the lateral base of the proximal first phalanx. No osseous erosions. No unusual soft tissue calcifications. Unchanged nonspecific diffuse soft tissue swelling. XR/XR foot LT min 3V IMPRESSION: 1. No acute fracture or subluxation. 2. Stable plantar calcaneal spurs. 3. Stable mild hallux valgus deformity. 4. Chronic avulsion fracture at the base of the first proximal phalanx.
[2023-09-02 16:43] LABS: D Dimer High Sensitivity 172 NG/ML
[2023-09-02 17:04] LABS: Alanine Aminotransferase 43 U/L (0-40); Albumin Level 4.1 g/dL (3.5-5.0); Alkaline Phosphatase 107 U/L (39-117); Anion Gap 10 (12-20); Aspartate Amino Transferase 24 U/L (5-37); Bilirubin Total 0.3 mg/dL (0.0-1.0); Blood Urea Nitrogen 20 mg/dL (9-16); Calcium 9.2 mg/dL (8.4-10.2); Carbon Dioxide 25 mmol/L (22-29); Chloride 107 mmol/L (96-108); Cholesterol 236 mg/dL (<200); Estimated Glomerular Filt Rate > 60; Glucose Random 99 mg/dL (60-115); HDL Cholesterol 41 mg/dL (>40); LDL Cholesterol Calculated 151 mg/dL (<100); Potassium 3.5 mmol/L (3.3-5.1); Sodium 138 mmol/L (135-145); Total Protein 7.6 g/dL (6.5-8.0); Triglycerides 224 mg/dL (<150)
== END 2023-09-02 16:12 | disposition home or self-care (01) ==
LOC: HO.LAB 16:11
PROVIDERS: PCP Internal Medicine Geriatric Medicine; Visit Provider Emergency Medicine
DX: R07.9 Chest pain, unspecified (principal); M79.672 Pain in left foot; E78.00 Pure hypercholesterolemia, unspecified
CPT/HCPCS: 36415; 71046; 73630; 80053; 80061; 85379

== ENCOUNTER 2023-10-18 15:40 | Outpatient (AMB) | payer OTHER, SELFPAY ==
[2023-10-18 15:44] VITALS: BP 136/82; PULSE 76; BMI 38.4
--- NOTE | 2023-10-18 15:44 | MHC.OFFVIS ---
Intake Vital Signs 10/18/23 15:44 Height 5 ft 10.5 in Weight 271 lb 2.697 oz BMI 38.4 BP 136/82 Blood Pressure Location Lt brachial Position Sitting Pulse 76 Pulse Source Pulse Oximeter Intake Visit Reasons: pt req appointment Intake Note: Pt presents to the office today for acid reflux. Pt states the omeparazole is working but it isn't helping as much as before. Pt states usually after he eats is the worst and he has noticed that even if he takes his medication but eats later at night he gets acid reflux. Pt denies any nausea or vomiting. Allergies atorvastatin [Lipitor] Allergy (Severe, Verified 10/18/23 15:44) Joint Pain shellfish derived Allergy (Severe, Verified 10/18/23 15:44) DIFFICULTY BREATHING HPI HPI Comments History of Present Illness Details 52y.o M with PMH of who is here for GERD and fatty liver. 09/08/22: Pt was recently admitted to the hospital for substernal chest pain with burning and radiation to back with frequent burping and bloating. No N/V or change in stool. No changes in appetite or weight. After cardiac evaluation and ACS was ruled out was started on PPI 40 BID. Takes AM dose 30 mins before breakfast and PM dose before supper. Was also noted to have elevated transaminases during the hospital stay ALT>ALT. Non smoker, etOH on weekend 2-3 drinks hard liquor. Had an elastography in 2021 through Bariatrics which did not show any advanced fibrosis. Last EGD 2016: Gastritis H pylori + , VI negative H pylori 2020. Has never had CRC screening. 11/2022 EGD/colo 1. Normal esophagus (biopsy) 2. Normal stomach 3. Normal duodenum 4. Normal colon and terminal ileum mucosa 5. Three polyps removed from sigmoid colon 6. External hemorrhoids Path: A. Esophagus, lower, biopsy: Squamous mucosa with no specific change; no evidence of eosinophilic esophagitis. B. Esophagus, middle, biopsy: Squamous mucosa with rare intraepithelial eosinophils (up to 1 per high- power field); no evidence of eosinophilic esophagitis. C. Colon, sigmoid, 3 polyps: Hyperplastic polyps (2 pieces) and colonic mucosa with lymphoid aggregate and minimal hyperplastic changes; negative for adenomatous dysplasia 10/18/23: Was lost to follow up. Here for recurrence GERD x 2 months. 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 Sleeps within a couple of hours of having a dinner. Describes sx as mostly chest pain and burning. NO nausea and vomiting. No changes to stools. No unintentional weight loss. Drinks etOH 1-2 times a month. Never smoked. No NSAIDs. Takes caffeine twice daily. Taking PPI on and off. [facility] Medical History Obesity Back pain GERD (gastroesophageal reflux disease) Hyperlipidemia Hypertension Morbid obesity High cholesterol Asthma Surgical History History of esophagogastroduodenoscopy (EGD) S/P panniculectomy Hx of cholecystectomy Family History Father No problems noted. Mother Myocardial infarction Brother No problems noted. Brother No problems noted. Sister No problems noted. Sister No problems noted. Sister No problems noted. Sister No problems noted. Sister No problems noted. Son No problems noted. Son No problems noted. Son No problems noted. 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 Review of Systems Const All systems reviewed & are unremarkable except as noted in HPI and below Physical Exam Vital Signs: Last Vital Signs Pulse 76 10/18/23 15:44 BP 136/82 10/18/23 15:44 BMI result Body Mass Index 38.4 Gen appear: No acute distress, with obesity HEENT: no icterus, no cervical lymphadenopathy Chest: No overt resp distress CVS: S1/S2, regular Abd: soft, nontender, nondistended Psych: Stable affect, answering questions appropriately Neuro: A/Ox3 noted to move all extremities spontaneously Ext: no peripheral edema Assessment & Plan Assessment & Plan (1) Elevated LFTs: Code(s): R79.89 - Other specified abnormal findings of blood chemistry (2) Morbid obesity: Code(s): E66.01 - Morbid (severe) obesity due to excess calories (3) GERD (gastroesophageal reflux disease): Code(s): K21.9 - Gastro-esophageal reflux disease without esophagitis (4) Hyperlipidemia: Code(s): E78.5 - Hyperlipidemia, unspecified Plan 1. GERD: Reminded to avoid trigger foods - has been having a lot of outside fast food. Sleeps shortly after eating. Also advised to resume PPI BID and to take on empty stomach. Will review response in 8 weeks. If unchanged, can consider pH/impedence study and barium swallow for further evaluation. 2. Elevated LFTs: As discussed likely from ALD and metALD. Weight unchanged from last time. Cholesterol reviewed and pt advised he should discuss a more aggressive statin therapy with his PCP. Complete abstinence from etOH. Coding Level of Care Code Est Pt Level 4 (13604) Diagnoses Elevated LFTs R79.89 Morbid obesity E66.01 GERD (gastroesophageal reflux disease) K21.9 Hyperlipidemia E78.5
== END 2023-10-18 16:23 | disposition home or self-care (01) ==
PROVIDERS: PCP Internal Medicine Geriatric Medicine; Visit Provider Internal Medicine
DX: R79.89 Other specified abnormal findings of blood chemistry (principal); E66.01 Morbid (severe) obesity due to excess calories; K21.9 Gastro-esophageal reflux disease without esophagitis; E78.5 Hyperlipidemia, unspecified
CPT/HCPCS: 99214

== ENCOUNTER → 2023-10-18 15:40 | Outpatient (BNVA) | payer OTHER, SELFPAY | PROVIDERS: PCP Internal Medicine Geriatric Medicine; Visit Provider Internal Medicine ==

== ENCOUNTER 2023-11-14 14:39 | Emergency (ER) | payer OTHER, SELFPAY ==
--- NOTE | ~2023-11-14 | XR_ITS ---
EXAMINATION: XR CHEST 2 VIEWS CLINICAL INFORMATION: Substernal chest pain. COMPARISON: Chest radiographs dated 09/02/2023. TECHNIQUE: Frontal and lateral views of the chest were obtained. FINDINGS: The heart, great vessels, pulmonary vasculature and mediastinum are normal. The lungs show no focal infiltrate, effusion or pneumothorax. There is mild elevation of the right hemidiaphragm. There are overlapping monitor leads. There is no acute osseous abnormality. There is multi-level thoracic spondylosis XR/XR chest 2V IMPRESSION: No active cardiopulmonary disease.
--- NOTE | 2023-11-14 14:40 | ECG_ITS ---
Test Reason : CP Blood Pressure : / mmHG Vent. Rate : 110 BPM Atrial Rate : 110 BPM P-R Int : 168 ms QRS Dur : 104 ms QT Int : 344 ms P-R-T Axes : 052 016 066 degrees QTc Int : 465 ms Sinus tachycardia Incomplete right bundle branch block Borderline ECG When compared with ECG of 27-AUG-2022 09:23, Vent. rate has increased BY 36 BPM Referred By: Hannah Vargas Electronically Signed By:ANDREW HUGHES
[2023-11-14 14:51] VITALS: BP 133/84; PULSE 107; RESP 18; TEMP 37.1; O2SAT 95; BMI 39.5
--- NOTE | 2023-11-14 14:51 | ED_ITS ---
HPI - Chest Pain General Chief Complaint: Chest Pain Stated Complaint: chest and left arm pain Time Seen by Provider: 11/14/23 16:04 Source: patient, family (), RN notes reviewed and old records reviewed Mode of arrival: ambulatory Limitations: no limitations History of Present Illness HPI narrative: 53 year old male with pmhx significant for obesity, JOSE, asthma, GERD, HTN, HDL presents to the ED today for evaluation of substernal chest pain that began 2 days ago. States it has been intermittent since onset with radiation down his left arm. Symptoms became consistent at 8:00 a.m. this morning. He does admit to history of acid reflux with associated epigastric discomfort however has never experienced radiation into the arm before. He took omeprazole 40 mg without any improvement in symptoms. Denies fever, chils, headache, dizziness, sob, abdominal pain, N/V, calf pain/ swelling. Denies IVDU. Denies known sick contacts. Denies recent travel or long car rides. Related Data Home Medications ?Medication ?Instructions ?Recorded ?Confirmed albuterol sulfate 90 mcg/actuation 2 puff PO Q4-6H PRN Shortness Of 11/06/20 12/25/22 aerosol inhaler Breath amlodipine 5 mg-valsartan 160 mg 1 tab PO DAILY 10/18/23 tablet omeprazole 40 mg capsule,delayed 40 mg PO DAILY 10/18/23 release pravastatin 20 mg tablet mg PO 10/18/23 sucralfate 100 mg/mL oral 10 ml PO QID 10/18/23 suspension Allergies Allergy/AdvReac Type Severity Reaction Status Date / Time atorvastatin [Lipitor] Allergy Severe Joint Pain Verified 11/14/23 14:54 shellfish derived Allergy Severe DIFFICULTY Verified 11/14/23 14:54 BREATHING Review of Systems 2 Review of Systems: Constitutional: No fever, chills, fatigue, night sweats, weight changes ENT/Mouth: No ear pain, hearing loss, nasal congestion, sinus pain, rhinorrhea, sore throat Eyes: No eye pain, swelling, redness, vision changes, discharge Cardio: No palpitations, OSORIO, orthopnea, peripheral edema, +chest pain Pulm: No SOB, cough, sputum, wheezing, dyspnea, hemoptysis GI: No nausea, vomiting, hematemesis, abdominal pain, diarrhea, constipation, hematochezia, melena : No irregular bleeding, dysuria, frequency, urgency, hesitancy, hematuria, flank pain, urinary flow changes, urinary incontinence or retention MSK: No back pain, neck pain, joint pain, myalgias Skin: No lesions, rashes Neuro: No weakness, numbness, paresthesias, LOC, dizziness, headache Psych: No anxiety/panic, depression, SI/HI, AH/VH All other systems reviewed and are negative. [facility] Past Medical History Attestation statement: The following information was validated with the patient. Source: old records reviewed and nursing notes reviewed Medical History Obesity Back pain GERD (gastroesophageal reflux disease) Hyperlipidemia Hypertension Morbid obesity High cholesterol Asthma Surgical History History of esophagogastroduodenoscopy (EGD) S/P panniculectomy Hx of cholecystectomy Family History Family History Father No problems noted. Mother Myocardial infarction Brother No problems noted. Brother No problems noted. Sister No problems noted. Sister No problems noted. Sister No problems noted. Sister No problems noted. Sister No problems noted. Son No problems noted. Son No problems noted. Son No problems noted. 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 Physical Exam 2 Vital Signs: Vital Signs: Last Vital Signs Temp 98.4 F 11/14/23 19:20 Pulse 85 11/14/23 19:20 Resp 18 11/14/23 19:20 BP 129/88 11/14/23 19:20 Pulse Ox 92 11/14/23 19:20 O2 Del Method Room Air 11/14/23 19:20 BMI result Body Mass Index 39.5 Vital signs stable Const: General: cooperative, healthy appearing, comfortable and no acute distress Orientation/consciousness: patient oriented x3 Limitations: no limitations HEENT: Head: Yes normal to inspection, Yes No palpable skull fracture present, Yes normocephalic and Yes atraumatic Eyes: General: appearance normal, both eyes and all related structures C onjunctivae: conjunctivae normal Sclerae: sclerae normal Pupils: Equal, round and reactive pupils present Neck: Neck: Yes normal visual inspection, Yes full ROM, Yes no lymphadenopathy and Yes no JVD Resp: Effort & Inspection: normal respiratory effort and able to speak in complete sentences Auscultation: clear to auscultation bilaterally Cardio: Jugular venous distension: no JVD Rate: regular rate Rhythm: r egular rhythm GI: Inspection: Yes normal to inspection Palpation (GI): Soft to palpation and nontender Skin: General skin exam: no rashes or lesions noted Neuro: General: patient oriented x3, gait normal and no focal motor deficits Cranial nerves: Yes Equal, round and reactive pupils present Extrem: General: Yes normal to inspection, Yes full ROM and Yes capillary refill normal Course Course Course Narrative: This is an RME: Additional HPI, ROS, PE not included below will be deferred to primary provider. Patient is a 53-year-old male presents emergency for evaluation of chest. He reports onset of pain 2 days ago, intermittent substernal chest pain with radiation to left arm, does admit to a history of acid reflux and has had some epigastric discomfort has never experienced radiation into the arm with his acid reflux.. Today symptoms have been constant since 08:00. Took omeprazole 40 mg without any change. Denies fevers, chills, URI symptoms, known sick contacts, nausea, vomiting Plan: Labs, EKG Reevaluation(s) Reevaluation #1: 1617-- On chart review, patient followed up with Dr. Phan in August of 2022 following admission for symptoms of chest pain possibly cardiac in etiology. His echocardiogram showed LVEF of 59% without significant valvular issues along with unremarkable troponins and EKG. Additionally he had a normal outpatient stress test in September of 2022. Cardiac workup essentially unremarkable. 1900-- CBC without leukocytosis or left shift. No anemia. H&H stable. Troponin undetectable x2 > ACS unlikely. Chemistry without acute electrolyte abnormality requiring intervention. Lipase WNL. D-dimer WNL > pulmonary embolism unlikely. Chest x-ray does not demonstrate infiltrate or consolidation to suggest pneumonia. No fluid. Workup unremarkable. > on re-evaluation, patient reports symptom improvement with GI cocktail and Toradol. Discussed all workup results with patient. Advised to follow-up with tour bus driver/guide this week. Patient has remained stable throughout ED visit today. Discussed worrisome signs and symptoms and when to return to the ED. All questions answered at this time. Patient is agreeable with disposition and stable for discharge. Medications Administered Discontinued Medications Generic Name Dose Route Start Last Admin Trade Name Yee PRN Reason Stop Dose Admin Al Hydroxide/Mg Hydroxide 30 ml 11/14/23 16:47 11/14/23 16:59 Magnesium Hydrox/Alum Hydrox 30 Ml Oral.Susp PO 11/14/23 16:48 30 ml ONCE ONE Administration Famotidine 20 mg 11/14/23 16:47 11/14/23 16:59 Famotidine 20 Mg Tablet PO 11/14/23 16:48 20 mg ONCE ONE Administration Ketorolac Tromethamine 30 mg 11/14/23 16:47 11/14/23 17:05 Ketorolac Tromethamine 30 Mg/Ml Vial IM 11/14/23 16:48 30 mg ONCE ONE Administration Lidocaine HCl 15 ml 11/14/23 16:47 11/14/23 16:59 Lidocaine Hcl Viscous 2 % 15 Ml Solution MUCOUS MEM 11/14/23 16:48 15 ml ONCE ONE Administration Medical Decision Making Medical Decision Making MDM Narrative: 53 year old male with pmhx significant for obesity, JOSE, asthma, GERD, HTN, HDL presents to the ED today for evaluation of substernal chest pain that began 2 days ago. Patient initially tachycardic to 107, now normalized. Vitals otherwise WNL. He is nontoxic appearing in no acute distress. On exam, no JVD or peripheral edema. RRR. Lungs CTA bilaterally. No chest wall tenderness to palpation. No crepitus. Abdomen soft, nondistended, nontender to palpation, no rebound tenderness or guarding. Normoactive bowel sounds x4. No calf tenderness bilaterally. Differential diagnosis includes ACS, arrhythmia, pulmonary embolism, GERD, costochondritis, pleuritis, electrolyte derangement, anemia. Low suspicion for pleural effusion, pneumonia, viral syndrome. Plan for labs, EKG, CXR, pain control and re-evaluaiton. Differential Diagnosis Differential Diagnoses: The differential diagnosis associated with the presentation includes As above Admission/Observation Not indicated Lab Data MDM Lab Attestation statement: I reviewed the patient's lab results. as above. 11/14/23 15:01 11/14/23 15:01 Labs: Lab Results 11/14/23 11/14/23 Range/Units 15:01 17:47 WBC 9.1 (4.8-10.8) X10*3/uL RBC 5.07 (4.60-5.80) X10*6/uL Hgb 15.0 (14.0-18.0) g/dl Hct 42.1 (42.0-52.0) % MCV 83.0 (80.0-98.0) fL MCH 29.6 (27.0-33.0) pg MCHC 35.6 (31.0-36.0) g/dl RDW 12.5 (11.0-16.0) % Plt Count 179 (160-400) X10*3/uL MPV 9.6 (9.4-12.4) fL Immature Gran % (Auto) 0.5 H (0.0-0.4) % Neut % (Auto) 65.3 (45-73) % Lymph % (Auto) 24.6 (20-40) % Morris % (Auto) 6.9 (2-11) % Eos % (Auto) 2.3 (0-4) % Baso % (Auto) 0.4 (0-2) % Lymph # (Auto) 2.2 (1.2-4.9) X10*3/uL Morris # (Auto) 0.6 (0.1-1.2) X10*3/uL Eos # (Auto) 0.2 (0.0-0.4) X10*3/uL Baso # (Auto) 0.0 (0.0-0.2) X10*3/uL Abs Immat Gran (auto) 0.05 H (0.00-0.03) X10*3/uL Absolute Neuts (auto) 5.9 (2.0-8.3) x10*3/uL Absolute Nucleated RBC 0.000 (0.0-0.012) X10*3/uL Nucleated RBC % (auto) 0.0 (0.0-0.2) /100WBC D-Dimer High Sensitivty < 150 NG/ML Sodium 141 (135-145) mmol/L Potassium 3.7 (3.3-5.1) mmol/L Chloride 107 (96-108) mmol/L Carbon Dioxide 24 (22-29) mmol/L Anion Gap 14 (12-20) BUN 21 H (9-16) mg/dL Creatinine 0.73 (0.5-1.4) mg/dL Estim Creat Clear Calc 158.8 Estimated GFR > 60 Random Glucose 104 (60-115) mg/dL Calcium 9.3 (8.4-10.2) mg/dL Magnesium 2.0 (1.6-2.6) mg/dL Total Bilirubin 0.7 (0.0-1.0) mg/dL AST 26 (5-37) U/L ALT 45 H (0-40) U/L Alkaline Phosphatase 100 (39-117) U/L Troponin I High Sens < 2.7 < 2.7 (<3.5-35.0) ng/L Total Protein 7.7 (6.5-8.0) g/dL Albumin 4.2 (3.5-5.0) g/dL Lipase 23 (8-78) U/L Independent Interpretation I performed an independent interpretation of an: EKG and Plain X-Ray Interpretation: EKG showing sinus tachycardia going to 110 beats per minute, QT 344, QTC 465, incomplete right bundle-branch block, no acute ischemic changes or ST elevations. Chest xray does not demonstrate enlarged cardiac silhouette, agree with radiologist's interpretation. Radiology Impression Discussion of test interpretation with radiology: I have reviewed the radiologist's reading. Radiologist Impression: EXAMINATION: XR CHEST 2 VIEWS CLINICAL INFORMATION: Substernal chest pain. COMPARISON: Chest radiographs dated 09/02/2023. TECHNIQUE: Frontal and lateral views of the chest were obtained. FINDINGS: The heart, great vessels, pulmonary vasculature and mediastinum are normal. The lungs show no focal infiltrate, effusion or pneumothorax. There is mild elevation of the right hemidiaphragm. There are overlapping monitor leads. There is no acute osseous abnormality. There is multi-level thoracic spondylosis XR/XR chest 2V IMPRESSION: No active cardiopulmonary disease. Independent Historian Clinical information obtained from an independent historian. History obtained from or confirmed by: Spouse External Record Review External record reviewed: Inpatient record, Office record, Outpatient record, Prior outpatient labs, Prior outpatient radiology, Primary care record and Outside ED record Prescription Management I considered prescription management with: Pain Medication Chronic Conditions Patient?s care impacted by: Hypertension and Other (GERD) Social Determinants Patient?s care significantly limited by Social Determinants of Health including: Other Social Determinant of Health Critical Care Time Critical Care Time Critical Care Time: Yes Total Critical Care Time: 31 Attestation: Critical care time in the amount of 31 minutes has been provided to the patient in terms of direct patient care, frequent reevaluation, review and interpretation of medical data and results, and management of potentially life- threatening conditions. This is all outside of any medical procedures. Discharge Plan Discharge Clinical Impression: Chest pain Patient Disposition: Home, Self-Care Instructions: Chest Pain (ED) Additional Instructions: Your labs today are reassuring. Your cardiac enzyme is normal x2. Your chest x-ray does not demonstrate pneumonia or fluid. The lab that we measure to assess for clots in the lungs was negative. There is no clear etiology for your pain/discomfort. Please follow-up with your primary care provider this week. You may take Tylenol at home as needed for pain/discomfort. Avoid NSAIDs such as ibuprofen or naproxen as this can exacerbate your GERD. Continue all medications as prescribed. Return with new or worsening symptoms. In the case of an emergency call 911. Prescriptions: No Action albuterol sulfate 90 mcg/actuation HFA aerosol inhaler 2 puff PO Q4-6H PRN (Reason: Shortness Of Breath) sucralfate 100 mg/mL suspension 10 ml PO QID omeprazole 40 mg capsule,delayed release(DR/EC) 40 mg PO DAILY pravastatin 20 mg tablet PO amlodipine-valsartan 5-160 mg tablet 1 tab PO DAILY Referrals: Name,MD José Miguel [Primary Care Provider] - Interventions: ED Discharge Assessment Last Done: 11/14/23 19:20 Discharge Date/Time: 11/14/23 19:33 Print Language: Ukrainian
[2023-11-14 15:06] LABS: MANUAL DIFF FLAG NO
[2023-11-14 15:09] LABS: Basophils Percent Auto 0.4 % (0-2); Eosinophils Absolute Auto 0.2 X10*3/uL (0.0-0.4); Eosinophils Percent Auto 2.3 % (0-4); Hematocrit 42.1 % (42.0-52.0); Imm Gran Abs Auto 0.05 X10*3/uL (0.00-0.03); Imm Gran Pct Auto 0.5 % (0.0-0.4); Lymphocytes Absolute Auto 2.2 X10*3/uL (1.2-4.9); Lymphocytes Percent Auto 24.6 % (20-40); Mean Corpuscular HGB Conc 35.6 g/dl (31.0-36.0); Mean Corpuscular Hemoglobin 29.6 pg (27.0-33.0); Mean Platelet Volume 9.6 fL (9.4-12.4); Monocytes Absolute Auto 0.6 X10*3/uL (0.1-1.2); Monocytes Percent Auto 6.9 % (2-11); Neutrophils Absolute Auto 5.9 x10*3/uL (2.0-8.3); Neutrophils Percent Auto 65.3 % (45-73); Platelet Count 179 X10*3/uL (160-400); Red Blood Count 5.07 X10*6/uL (4.60-5.80); Red Cell Distribution Width 12.5 % (11.0-16.0); White Blood Count 9.1 X10*3/uL (4.8-10.8)
[2023-11-14 15:28] LABS: Alanine Aminotransferase 45 U/L (0-40); Albumin Level 4.2 g/dL (3.5-5.0); Alkaline Phosphatase 100 U/L (39-117); Anion Gap 14 (12-20); Aspartate Amino Transferase 26 U/L (5-37); Bilirubin Total 0.7 mg/dL (0.0-1.0); Blood Urea Nitrogen 21 mg/dL (9-16); Calcium 9.3 mg/dL (8.4-10.2); Carbon Dioxide 24 mmol/L (22-29); Chloride 107 mmol/L (96-108); Creatinine Clr Calc Pharmacy 158.8; Estimated Glomerular Filt Rate > 60; Glucose Random 104 mg/dL (60-115); Lipase 23 U/L (8-78); Potassium 3.7 mmol/L (3.3-5.1); Sodium 141 mmol/L (135-145); Total Protein 7.7 g/dL (6.5-8.0)
[2023-11-14 15:55] LABS: Troponin-I High Sensitivity < 2.7 ng/L (<3.5-35.0)
[2023-11-14 16:06] VITALS: BP 130/84; PULSE 100; RESP 16; O2SAT 95
[2023-11-14] MEDS: Lidocaine HCl Viscous 2 % 15 ML SOLUTION MUCOUS MEM (16:59)
[2023-11-14] MEDS: Famotidine 20 MG TABLET PO (16:59)
[2023-11-14] MEDS: Magnesium Hydrox/Alum Hydrox 30 ML ORAL.SUSP PO (16:59)
[2023-11-14] MEDS: Ketorolac Tromethamine 30 MG/ML VIAL IM (17:05)
--- NOTE | 2023-11-14 17:16 | PC.NURSE ---
PT REMAINS IN A NSR ON THE MONITOR. HE WAS MEDICATED FOR EPIGASTRIC PAIN AND LEFT ARM PAIN. PLAN IS FOR A REPEAT TROP.
[2023-11-14 17:43] VITALS: BP 121/74; PULSE 82; RESP 14; TEMP 36.8; O2SAT 95
[2023-11-14 18:22] LABS: Troponin-I High Sensitivity < 2.7 ng/L (<3.5-35.0)
[2023-11-14 18:26] LABS: D Dimer High Sensitivity < 150 NG/ML
--- NOTE | 2023-11-14 18:33 | PC.NURSE ---
PT REPORTS FEELING BETTER, LAB IS -D DIMER AND - SECOND TROPONIN
[2023-11-14 19:20] VITALS: BP 129/88; PULSE 85; RESP 18; TEMP 36.9; O2SAT 92
== END 2023-11-14 19:33 | disposition home or self-care (01) ==
PROVIDERS: Nurse Practitioner Family; Physician Assistant Medical; Emergency Provider Emergency Medicine; PCP Internal Medicine Geriatric Medicine
DX: R07.9 Chest pain, unspecified (principal); K21.9 Gastro-esophageal reflux disease without esophagitis; I10 Essential (primary) hypertension; J45.909 Unspecified asthma, uncomplicated; Z79.899 Other long term (current) drug therapy
CPT/HCPCS: 36415; 71046; 80053; 83690; 83735; 84484; 85025; 85379; 93005; 96372; 99285; J1885

== ENCOUNTER → 2023-11-14 14:40 | Outpatient (BNV) | payer OTHER, SELFPAY | PROVIDERS: Emergency Provider Emergency Medicine; PCP Internal Medicine Geriatric Medicine; Visit Provider Internal Medicine | DX: R00.0 Tachycardia, unspecified (principal); I45.19 Other right bundle-branch block | CPT/HCPCS: 93010 ==

== ENCOUNTER → 2023-12-06 15:37 | Outpatient (REF) | payer OTHER, SELFPAY | LOC: HO.SL 15:37 | PROVIDERS: PCP Internal Medicine Geriatric Medicine; Visit Provider Internal Medicine Geriatric Medicine | DX: G47.33 Obstructive sleep apnea (adult) (pediatric) (principal) | CPT/HCPCS: 95806 ==

== ENCOUNTER → 2023-12-06 19:00 | Outpatient (BNV) | payer OTHER, SELFPAY | PROVIDERS: PCP Internal Medicine Geriatric Medicine; Visit Provider Internal Medicine | DX: G47.33 Obstructive sleep apnea (adult) (pediatric) (principal) | CPT/HCPCS: 95806 ==

== ENCOUNTER 2024-09-19 14:40 | Outpatient (REF) | payer OTHER, SELFPAY ==
--- OUTSIDE RECORDS SUMMARY | 2024-09-19 15:43 | XMS_ITS | Encounter Summary ---
Author Organization [employer] Address [address] [facility] [address] [place] [address] Care Team Providers Care Neurology Epilepsy Physician Name Role Phone Name, José Miguel GO Primary Care Provider [phone] Reason for Visit * Reason Onset Date Comments Med Refill 03/16/2024 Encounter Details Date Type Department Care Team ([facility] st Contact Info) Description 03/16/2024 Refill [facility] MEDICINE [address] [place], [place] [phone] Name, MD José Miguel [address] [place] [address] Social History Tobacco Use Types Packs/Day Years Used Date Smoking Tobacco: Never Smokeless Tobacco: Never Alcohol Use Standard Drinks/Week Comments Yes 0 (1 standard drink = 0.6 oz pur e alcohol) occassional Depression Answer Date Recorded Patient Health Questionnaire-9 Score 0 08/23/2023 Patient Health Questionnaire-9 Score 0 08/23/2023 Last PHQ-9: Questionnaire Data Not on file 0 08/23/2023 Housing Stability Answer Date Recorded What is your housing situation today? I have komal carrillo 10/05/[address] you li ve. Do you have problems with any of the following? None of the above 10/05/2023 Food Insecurity Answer Date Recorded Within the past 12 months, y ou worried that your food would run out before you got money to buy more: Never True 10/05/2023 Within the past 12 months,th e food you bought just didn't last and you didn't have enough money to get more: Never True 12/2023 Transportation Answer Date Recorded In the past 12 months, has l ack of transportation kept you from medical appts, meetings, work or from getting things needed for daily living? No 10/05/2023 Utilities Answer Date Recorded In the past 12 months, has t he electric, gas, oil or water company threatened to shut off services in your home? No 10/05/2023 Depression Answer Date Recorded Patient Health Questionnaire-2 Score 0 08/23/2023 Sex and Gender Information Value Date Recorded Sex Assigned at Male 06/01/2022 10:16 AM EDT Legal Sex Male 10:16 AM EDT Gender Identity Male 06/01/2022 10:16 AM EDT Sexual Orientation Straight 06/01/2022 10 :16 AM EDT documented as of this encounter Plan of Treatment Not on file documented as of this encounter Visit Diagnoses Not on filedocumented in this encounter Additional Health Concerns Assessment Noted Time PHQ-9 Depression Total Score: 0 08/23/19 24 2:53 PM EST documented as of this encounter Care Teams Neurology Epilepsy Physician Relationship Specialty Start Date End Date Name, MD José Miguel [address] [place] [id number] PCP - General Family Medicine 10/02/15 documented as of this encounter
--- OUTSIDE RECORDS SUMMARY | 2024-09-19 15:43 | XMS_ITS | Encounter Summary ---
Author Organization [employer] Address [address] [facility] 7t [place] [address] Care Team Providers Care Resource Conservation Specialist Name Role Phone Name, José Miguel GO Primary Care Provider [phone] Reason for Visit * Reason Onset Date Comments Triage 08/06/2022 Encounter Details Date Type Department Care Team ([facility] st Contact Info) Description 08/06/2022 Telephone [facility] MEDICINE [address] [place], [place] [phone] Name, MD José Miguel [address] [place] [address] Triage Social History Tobacco Use Types Packs/Day Years Used Date Smoking Tobacco: Never Assessed Depression Answer Date Recorded Patient Health Questionnaire-9 [...] Orientation Straight 06/01/2022 10 :16 AM EDT COVID-19 Exposure Response Date Recorded In the last 10 days, have yo u been in contact with someone who was confirmed or suspected to have Coronavirus/COVID-19? No / Unsure 09/14/2022 12:39 PM EST documented as of this encounter Plan of Treatment Not on file documented as of this encounter Visit Diagnoses Not on filedocumented in this encounter Care Teams Resource Conservation Specialist Relationship Specialty Start Date End Date Name, MD José Miguel [address] [place] [id number] PCP - General Family Medicine 10/02/15 documented as of this encounter
--- OUTSIDE RECORDS SUMMARY | 2024-09-19 15:43 | XMS_ITS | Encounter Summary ---
Author Organization [employer] Address [address] [facility] 7t [place] [address] Care Team Providers Care Ecological Risk Assessor Name Role Phone Name, José Miguel GO Primary Care Provider [phone] Reason for Visit * Reason Onset Date Comments Med Refill 03/15/2024 Encounter Details Date Type Department Care Team ([facility] st Contact Info) Description 03/15/2024 Refill [facility] MEDICINE [address] [place], [place] [phone] Name, MD José Miguel [address] [place] [address] Social History Tobacco Use Types Packs/Day Years [...] documented as of this encounter Care Teams Ecological Risk Assessor Relationship Specialty Start Date End Date Name, MD José Miguel [address] [place] [id number] PCP - General Family Medicine 10/02/15 documented as of this encounter
--- OUTSIDE RECORDS SUMMARY | 2024-09-19 15:43 | XMS_ITS | Encounter Summary ---
Author Organization [employer] [facility] [employer] Address [address] [place] [address] 7t [place] [address] Care Team Providers Care Personnel Worker Name Role Phone José Miguel Dobson MD Primary Care Provider [phone] Reason for Referral * Consultation (Routine) - Pending Review Specialty Diagnoses / Procedures Referred By Juan Pabloac t Referred To Contact Vascular Surgery Diagnoses Varicose veins of both lower extremities with pain José Miguel Dobson MD [address] [place] [address] Phone: tel: fax: Referral ID Status Reason Start Date Expiration Date Visits Requested Visits Authorized [id number] Pending Review Specialty Services Required 09/19/2024 09/19/2025 1 1 * Consultation (Routine) - Pending Review Specialty Diagnoses / Procedures Referred By Barbara t Referred To Contact Sleep Medicine Diagnoses JOSE (obstructive sleep apnea) José Miguel Dobson MD [address] [place] [address] Phone: tel: fax: Referral ID Status Reason Start Date Expiration Date Visits Requested Visits Authorized [id number] Pending Review Specialty Services Required 09/19/2024 09/19/2025 1 1 * Consultation (Routine) - Pending Review Specialty Diagnoses / Procedures Referred By Contac t Referred To Contact Urology Diagnoses Prostatism José Miguel Dobson MD [address] [place] [address] Phone: tel: fax: Referral ID Status Reason Start Date Expiration Date Visits Requested Visits Authorized [id number] Pending Review Specialty Services Required 09/19/2024 09/19/2025 1 1 Reason for Visit * Reason Comments Hypertension Encounter Details Date Type Department Care Team (Late st Contact Info) Description 09/19/2024 2:00 PM EST Office Visit [facility] MEDICINE [address] [place] [address] Name, MD José Miguel [address] [place] [address] Hypertension, unspecified type (Primary Dx); JOSE (obstructive sleep apnea); Class 2 severe obesity with serious comorbidity and body mass index (BMI) of 39.0 to 39.9 in adult, unspecified obesity type (CMS/HCC); Prostatism; Varicose veins of both lower extremities with pain Social History Tobacco Use Types Packs/Day Years Used Date Smoking Tobacco: Never Smokeless Tobacco: Never Tobacco Cessation:Counseling Given: Not Answered Alcohol Use Standard Drinks/Week Comments Yes 0 [...] t he electric, gas, oil or water [employer] threatened to shut off services in your home? No 10/05/2023 Depression Answer Date Recorded Patient Health Questionnaire-2 Score 0 08/23/2023 Internet Access Answer Date Recorded Internet Access Q1 Yes 09/11/2024 Internet Access Q2 Not on file 09/11/2024 Sex and Gender Information Value Date Recorded Sex Assigned at Male 06/01/2022 10:16 AM EDT Legal Sex Male 10:16 AM EDT Gender Identity Male 06/01/2022 10:16 AM EDT Sexual Orientation Straight 06/01/2022 10 :16 AM EDT documented as of this encounter Last Filed Vital Signs Vital Sign Reading Time Taken Comments Blood Pressure 152/81 09/19/2024 1:49 PM EST Pulse 75 09/19/2024 1:49 PM EST Temperature 36.7 ??C (98.1 ??F) 09/19/2024 1:49 PM ES T Respiratory Rate 18 09/19/2024 1:49 PM EST Oxygen Saturation 97% 09/19/2024 1:49 PM EST Inhaled Oxygen Concentration - - Weight 124 kg (274 lb 3.2 oz) 09/19/2024 1:49 PM EST Height 177.8 cm (5' 10 ) 09/19/2024 1:49 PM EST Body Mass Index 39.34 09/19/2024 1:49 PM EST documented in this encounter Progress Notes * José Miguel Dobson MD - 09/19/2024 2:00 PM EST Subjective Patient ID: Jose Canseco is a 54 y.o. male who presents for Hypertension. Patient comes for a follow-up visit. Unfortunately he switched his insurance coverage from [employer] and his new insurance does not pay for treatment of GLP-1 for weight loss. The patient was previously using Wegovy. He was able to go up to a dose of 2.4 mg weekly. The patient lost about 19 pounds on the medication but he has regained 6 pounds since he stopped using Wegovy. The patient has a personal history of hypertension and mild JOSE. His BP is elevated today but has been normal at home. He is using the medications as prescribed. He does not have a personal or family history of thyroid cancer. No personal history of pancreatitis. He describes having nausea and worsening heartburn during the use of GLP-1 for weight loss. The side effects were tolerable. The heartburn symptoms resolved with the use of [id number] Nexium. Review of Systems Constitutional: Negative for chills, fatigue and fever. HENT: Negative for sore throat. Respiratory: Negative for cough, chest tightness and shortness of breath. Cardiovascular: Negative for chest pain, palpitations and leg swelling. Gastrointestinal: Negative for abdominal pain and blood in stool. Genitourinary: Today he complains of nocturia up to 3 times a night. Decreased urine stream. No hematuria or dysuria. He has a personal history of BPH. Visit Vitals BP (!) 152/81 (BP Location: Left arm, Patient Position: Sitting, BP Cuff Size: Large adult) Pulse 75 Temp 98.1 ??F (36.7 ??C) (Temporal) Resp 18 Ht 5' 10 (1.778 m) Wt 274 lb 3.2 oz (124 kg) SpO2 97% BMI 39.34 kg/m?? Smoking Status Never BSA 2.47 m?? Objective Physical Exam Constitutional: Appearance: Normal appearance. Cardiovascular: Rate and Rhythm: Normal rate and regular rhythm. Heart sounds: No murmur heard. Pulmonary: Effort: Pulmonary effort is normal. No respiratory distress. Breath sounds: No wheezing, rhonchi or rales. Abdominal: Palpations: Abdomen is soft. Tenderness: There is no abdominal tenderness. Musculoskeletal: Right lower leg: No edema. Left lower leg: No edema. Comments: Patient has large varicose veins on the right upper calf. Neurological: Mental Status: He is alert. Assessment/Plan Diagnoses and all orders for this visit: Hypertension, unspecified type Comments: I did not change his meds based on home BP readings. Continue Exforge and HCTZ. Continue statin forprimary prevention of cardiovascular disease. Recheck BMP. Orders: - Basic Metabolic Panel; Future JOSE (obstructive sleep apnea) Comments: Unfortunately the patient is regaining weight since coming off of GLP-1. Sleep study last year showed mild JOSE and weight loss was recommended. I we will refer to sleep medicine clinic at [facility] for evaluation and treatment recommendations. Orders: - Referral to Sleep Medicine; Future Class 2 severe obesity with serious comorbidity and body mass index (BMI) of 39.0 to 39.9 in adult,unspecified obesity type (CMS/HCC) Comments: Patient insurance does not cover GLP-1 treatment. At the moment he is not interested in referral [facility] clinic. We discussed importance of avoiding sweets and soda. Decreasing portion sizes. The patient has a physically demanding job and is physically active during the day. Prostatism Comments: I recommend to check PSA and UA. Trial of Flomax. We discussed side effects of the medication. Referral to urology. Orders: - PSA,Total; Future - Urinalysis, Complete, with Reflex to Culture; Future - Referral to Urology; Future Other orders - amLODIPine-valsartan (Exforge) 5-160 MG tablet; Take 1 tablet by mouth Once per day. - hydroCHLOROthiazide 12.5 MG tablet; Take 1 tablet (12.5 mg) by mouth Once per day. - esomeprazole (NexIUM) [address] capsule; Take 1 capsule (20 mg) by mouth before breakfast. Do not open capsule. - tamsulosin (Flomax) 0.4 MG 24 hr capsule; Take 1 capsule (0.4 mg) by mouth Once per day. - Flu vaccine today. I also referred him to vascular surgery because of chronic problems with tender varicose veins. documented in this encounter Plan of Treatment Scheduled Orders Name Type Priority Associated Diagnoses Orde r Schedule Basic Metabolic Panel Lab Routine Hypertension, unspecified type Expected: 09/19/2024 (Approximate), Expires: 09/19/2025 PSA,Total Lab Routine Prostatism Expected: 09/19/2024, Expires: 09/19/2025 Urinalysis, Complete, with Reflex to Culture Lab Routine Prostatism Expected: 09/19/2024 (Approximate), Expires: 09/19/2025 Scheduled Referrals Name Type Priority Associated Diagnoses Orde r Schedule Referral to Urology Outpatient Referral Routine Prostatism Expected: 09/19/2024 (Approximate), Expires: 09/19/2025 Referral to Sleep Medicine Outpatient Referral Routine JOSE (obstructive sleep apnea) Expected: 09/19/2024 (Approximate), Expires: 09/19/2025 Referral to Vascular Surgery Outpatient Referral Routine Varicose veins of both lower extremities with pain Expected: 09/19/2024 (Approximate), Expires: 09/19/2025 documented as of this encounter Visit Diagnoses Diagnosis Hypertension, unspecified type- Primary JOSE (obstructive sleep apnea) Obstructive sleep apnea (adult) (pediatric) Class 2 severe obesity with serious comorbidity and body mass index (BMI) of 39.0 to 39.9 in adult, unspecified obesity type (CMS/HCC) Prostatism Unspecified hyperplasia of prostate without urinary obstruction and other lower urinary tract symptoms (LUTS) Varicose veins of both lower extremities with pain documented in this encounter Additional Health Concerns Assessment Noted Time PHQ-9 Depression Total Score: 0 08/23/19 24 2:53 PM EST documented as of this encounter Care Teams Personnel Worker Relationship Specialty Start Date End Date Name, MD José Miguel [address] [place] [address] PCP - General Family Medicine 10/02/15 documented as of this encounter
--- OUTSIDE RECORDS SUMMARY | 2024-09-19 15:43 | XMS_ITS | Encounter Summary ---
Author Organization [employer] Address [address] [facility] [address] [place] [address] Care Team Providers Care Pbx Technician Name Role Phone Name, José Miguel GO Primary Care Provider [phone] Reason for Visit * Reason Onset Date Comments Prior Authorization 08/28/2024 Encounter Details Date Type Department Care Team ([facility] st Contact Info) Description 08/28/2024 Telephone [facility] MEDICINE [address] [place], [place] [phone] Name, MD José Miguel [address] [place] [address] Prior Authorization Social History Tobacco Use Types Packs/Day Years [...] AM EDT documented as of this encounter Miscellaneous Notes * Telephone Encounter - Christie oFy - 08/31/2024 1:30 PM EST SHAMA Savage signed and faxed to [facility] . Confirmation received and sent to [facility]. If patient calls to check status on above, please advise them to contact Pharmacy . * Telephone Encounter - Christie Foy - 08/28/2024 3:57 PM EST SHAMA req generated and placed on pcp desk for review and signature. documented in this encounter Plan of Treatment Not on file documented as of this encounter Visit Diagnoses Not on filedocumented in this encounter Additional Health Concerns Assessment Noted Time PHQ-9 Depression Total Score: 0 08/23/19 24 2:53 PM EST documented as of this encounter Care Teams Pbx Technician Relationship Specialty Start Date End Date Name, MD José Miguel [address] [place] [address] PCP - General Family Medicine 10/02/15 documented as of this encounter
--- OUTSIDE RECORDS SUMMARY | 2024-09-19 15:43 | XMS_ITS | Clinical Summary ---
Author Organization [employer] Address [address] [place] [address] [address] [place] [address] Care Team Providers Care Steel Sash Erector Name Role Phone Name, José Miguel GO Primary Care Provider [phone] Allergies Active Allergy Reactions Criticality Noted Date Comments Shellfish-Derived Products 6 Medications sucralfate (Carafate) 1 GM/10ML suspension TAKE 10ML BY MOUTH FOUR TIMES DAILY 1200 mL 024 Active pravastatin (Pravachol) 20 MG tablet TAKE 1 TABLET BY MOUTH EVERY OTHER DAY 45 tablet 1 024 Active Wegovy 2.4 MG/0.75ML solution auto-injector INJECT ONE PEN (=2.4 MG) SUBCUTANEOUSLY ONCE A WEEK 3 mL 1 Active amLODIPine-luis sartan (Exforge) 5-160 MG tablet Take 1 tablet by mouth Once per day. 30 tablet 2025 Active hydroCHLOROthi azide 12.5 MG tablet Take 1 tablet (12.5 mg) by mouth Once per day. 30 tablet 2025 Active albuterol (Ventolin HFA) 108 (90 Base) MCG/ACT inhalerIndicat ions:Hypertens ion, unspecified type Inhale 2 puffs every 4 hours 18 g Active esomeprazole (NexIUM) [address] capsule Take 1 capsule (20 mg) by mouth before breakfast. Do not open capsule. 30 capsule 025 2025 Active tamsulosin (Flomax) 0.4 MG 24 hr capsule Take 1 capsule (0.4 mg) by mouth Once per day. 30 capsule 2 025 2024 Active albuterol (Ventolin HFA) 108 (90 Base) MCG/ACT inhalerIndicat ions:COVID-19 Inhale 2 puffs every 4 hours 18 g 2 024 2024 Discontinued(R eorder (will not trigger notification to Pharmacy)) lidocaine (Lidoderm) 5 % patch Apply 1 patch topically in the morning. Remove & discard patch within 12 hours or as directed by MD. 30 patch 2 024 2024 amLODIPine-luis sartan (Exforge) 5-160 MG tablet Take 1 tablet by mouth in the morning. 30 tablet 11 024 2024 Discontinued(R eorder (will not trigger notification to Pharmacy)) hydroCHLOROthi azide (HYDRODiuril) 12.5 MG tablet Take 1 tablet (12.5 mg) by mouth Once per day. 30 tablet 11 024 2024 Discontinued(R eorder (will not trigger notification to Pharmacy)) omeprazole (PriLOSEC) [address] capsuleIndicat ions:Hyperchol esterolemia,Pr ostatism,Chest pain, unspecified type TAKE 1 CAPSULE BY MOUTH BEFORE BREAKFAST. DO NOT CRUSH OR CHEW. 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 Encounters Date Type Department Care Team Description 09/19/2024 2:00 PM EST Office Visit [facility] [address] [place] [phone] Name, MD José Miguel Hypertension, unspecified type (Primary Dx); JOSE (obstructive sleep apnea); Class 2 severe obesity with serious comorbidity and body mass index (BMI) of 39.0 to 39.9 in adult, unspecified obesity type (CMS/HCC); Prostatism; Varicose veins of both lower extremities with pain 09/11/2024 Patient Outreach [facility] [address] [place] [address] José Miguel Dobson MD Pre-visit Planning (SDOH negative, Tobacco screening negative, ) 08/28/2024 Telephone [facility] [address] [place] [phone] José Miguel Dobson MD Prior Authorization 07/07/2024 Telephone [facility] [address] [place] [phone] Josiane Kapoor [place] feb recall 07/06/2024 Refill [facility] [address] [place] [address] José Miguel Dobson MD 06/22/2024 Telephone [facility] [address] [place] [address] José Miguel Dobson MD from Last 3 Months Immunizations Name Administration Dates Next Due Influenza injectable quadriv alent IIV4 with preservative 08/18/2022,06/30/2016 Influenza injectable quadrivalent preservative f ree 05/22/2020 Influenza, IIV3, injectable 05/18/2015 Influenza, seasonal, injectable, preservative fr ee 09/19/2024 Pneumococcal Polysaccharide PPSV23 04/12/2013 Tdap 03/02/2021 Social History Tobacco Use Types Packs/Day Years [...] Orientation Straight 06/01/2022 10 :16 AM EDT Last Filed Vital Signs Vital Sign Reading [...] Mass Index 39.34 09/19/2024 1:49 PM EST Plan of Treatment Health Maintenance Due Date Last Done Comments CT Colonography 1972 FIT DNA/Cologuard 1972 FIT 1972 FOBT 1972 HIV Screening 1972 Sigmoidoscopy 1972 Alcohol/Substance Use Screening 1984 Family Planning (PISQ) 01/07/1987 Hepatitis B Vaccines (1 of 3 - 19+ 3-dose series) 01/07/1991 Pneumococcal Vaccine: 50+ Years (2 of 2 - PCV) 04/12/2014 04/12/2013 Zoster Vaccines (1 of 2) 01/07/2022 COVID-19 Vaccine (4 - season) 2024 07/30/2021, 11/28/2020, 10/31/2020 Depression Screening 08/23/2024 08/23/2023, 08/23/19 24 SDOH Screening 09/11/2025 09/11/2024 Tobacco Screening 09/19/2025 09/19/2024 Lipid Panel 09/02/2028 09/02/2023, 09/02, 08/01/2021 DTaP/Tdap/Td Vaccines (2 - Td or Tdap) 03/02/2031 03/02/2021 Colonoscopy 12/25/2032 12/25/2022 Colorectal Cancer Screening 12/25/2032 RSV Patients and Patients Aged 60 years or older (1 - 1-dose 75+ series) 01/07/2047 Hepatitis C Screening Completed 10/16/2020 Influenza Vaccine Completed 09/19/2024, , 05/22/2020, Additional history exists HIB Vaccines Aged Out No longer eligi ble based on patient's age to complete this topic HPV Vaccines Aged Out No longer eligi ble based on patient's age to complete this topic Hepatitis A Vaccines Aged Out No long er eligible based on patient's age to complete this topic IPV Vaccines Aged Out No longer eligi ble based on patient's age to complete this topic Meningococcal Vaccine Aged Out No mabel kristen eligible based on patient's age to complete this topic RSV under 20 months Aged Out No longe r eligible based on patient's age to complete this topic Rotavirus Vaccines Aged Out No longer eligible based on patient's age to complete this topic Procedures Procedure Name Priority Date/Time Associated Diagnosis Comments LIPID PANEL, STANDARD Routine 09/02/2023 4:30 PM EST High cholesterol HM COLONOSCOPY Routine 12/25/2022 ZZZ HISTORICAL HEPATITIS C AB W/REFL TO HCV RNA, QN, PCR Routine 10/16/2020 3:21 PM EDT from Last 3 Months or Most Recently Relevant to Health Maintenance Results * (ABNORMAL) Lipid Panel, Standard (09/02/2023 4:30 PM EST) Triglycerides 224(H) <150 mg/dL [facility] Comment:Desirable Triglyceri de: less than 150 mg/dLBorderline High Triglyceride 150-199 mg/dLHigh Triglyceride: 200-499 mg/dLVery High Triglyceride: greater than or equal to 5OO mg/dL Cholesterol 236(H) <200 mg/dL [facility] Comment:Desirable Cholestero l: less than 200 mg/dLBorderline High Cholesterol: 200-239 mg/dLHigh Cholesterol: greater than 239 mg/dL LDL Cholesterol Calculated 151(H) <100 mg/dL [facility] Comment:Desirable LDL: less than 100 mg/dLNear Optimal/Above Optimal LDL: 110- 129 mg/dLBorderline High LDL: 130-159 mg/dLHigh LDL: 160-189 mg/dLVery High LDL: greater than or equal to 190 mg/dL HDL Cholesterol 41 >40 mg/dL [facility] Comment:Desirable HDL: great er than 40 mg/dL Note: This HDL assay may give artificially low results in patients with liver disease. Blood Venous blood specimen / Unknown 09/02/2023 4:30 PM EST 09/02/2023 4:30 PM EST José Miguel Dobson MD LAB BLOOD ORDERABLES Final Resul t [facility] [address] [place] [address] [phone] * Hm Colonoscopy (12/25/2022) Colonoscopy Normal Normal [facility] External Provider HEALTH MAINTENANCE Final Result * HEPATITIS C AB W/REFL TO HCV RNA, QN, PCR (10/16/2020 3:21 PM EDT) HEPATITIS C ANTIBODY NON-REACT KATHY NON-REACT KATHY [facility] INDEX 0.01 <1.00 [facility] Comment: ?? HCV antibody was non-reactive. There is no laboratory ?? evidence of HCV infection. ?? In most cases, no further action is required. However, if recent HCV exposure is suspected, a test for HCV RNA (test code 71572) is suggested. ?? For additional information please refer to http://Zaask.ShopIgniter/faq/SKQ33j5 (This link is being provided for informational/ educational purposes only.) ?? 10/16/2020 3:21 PM EDT us José Miguel Dobson MD HISTORICAL/NON ORDERABLE LABS Fi nal Result [facility] [address] [place] [address], from Last 3 Months or Most Recently Relevant to Health Maintenance Insurance [address] [address] , [address] [place] [address] Care Teams Steel Sash Erector Relationship Specialty Start Date End Date Name, MD Jsoé Miguel [address] [place] [address] PCP - General Family Medicine 10/02/15
--- OUTSIDE RECORDS SUMMARY | 2024-09-19 15:43 | XMS_ITS | Encounter Summary ---
Author Organization [employer] Address [address] [place] [address] Care Team Providers Care Inseam Trimmer Name Role Phone Name, José Miguel GO Primary Care Provider [phone] Reason for Visit * Reason Comments Pre-visit Planning SDOH negative, Tobac co screening negative, Encounter Details Date Type Department Care Team ([facility] Contact Info) Description 09/11/2024 Patient Outreach [facility] [address] [place], [place] [phone] Name, MD José Miguel [address] [place] [address] Pre-visit Planning (SDOH negative, Tobacco screening negative, ) Social History Tobacco Use Types Packs/Day Years [...] AM EDT documented as of this encounter Progress Notes * Stacey Noriega - 09/11/2024 3:40 PM EST CC Stacey Tripathi placed successful outbound call to patient for pre-visit planning. Patient name and confirmed. Patient confirms appt date and time, and has transportation arrangements. Biggest concern for appointment at this time is no concerns. Appropriate screenings completed in anticipation ofappointment. documented in this encounter Plan of Treatment Not on file documented as of this encounter Visit Diagnoses Not on filedocumented in this encounter Additional Health Concerns Assessment Noted Time PHQ-9 Depression Total Score: 0 08/23/19 24 2:53 PM EST documented as of this encounter Care Teams Inseam Trimmer Relationship Specialty Start Date End Date Name, MD José Miguel [address] [place] [address] PCP - General Family Medicine 10/02/15 documented as of this encounter
[2024-09-19 16:16] LABS: Appearance Urine Clear; Color Urine Yellow; Glucose Urine UA Negative (Negative); Leukocyte Esterase Urine Negative (Negative); Nitrite Urine Negative (Negative); Specific Gravity - Urine >= 1.030 (1.005-1.025); Urine Blood Negative (Negative); Urine Ketones Negative (Negative); Urine Protein Negative (Neg-Trace)
[2024-09-19 16:20] LABS: Bacteria Urine None Seen (None Seen); Hyaline Casts Urine 0-2 /LPF (0-2); RBC Urine 0-2 /HPF (0-2); Squamous Epithelial Cell Urine 0-2 /HPF (0-2); WBC Urine 0-5 /HPF (0-5)
[2024-09-19 16:41] LABS: Alanine Aminotransferase 55 U/L (0-40); Albumin Level 4.2 g/dL (3.5-5.0); Alkaline Phosphatase 120 U/L (39-117); Anion Gap 9 (12-20); Aspartate Amino Transferase 33 U/L (5-37); Bilirubin Total 0.3 mg/dL (0.0-1.0); Blood Urea Nitrogen 21 mg/dL (9-16); Calcium 9.2 mg/dL (8.4-10.2); Carbon Dioxide 29 mmol/L (22-29); Chloride 107 mmol/L (96-108); Cholesterol 269 mg/dL (<200); Estimated Glomerular Filt Rate > 60; Glucose Random 109 mg/dL (60-115); HDL Cholesterol 43 mg/dL (>40); LDL Cholesterol Calculated 181 mg/dL (<100); Potassium 3.9 mmol/L (3.3-5.1); Sodium 141 mmol/L (135-145); Total Protein 8.2 g/dL (6.5-8.0); Triglycerides 226 mg/dL (<150)
[2024-09-19 16:48] LABS: Prostate Specific Antigen 0.59 ng/mL (<0.05-4.0)
== END 2024-09-19 14:41 | disposition home or self-care (01) ==
LOC: HO.HHCL 14:40
PROVIDERS: Visit Provider Internal Medicine Geriatric Medicine
DX: I10 Essential (primary) hypertension (principal); E78.00 Pure hypercholesterolemia, unspecified; N40.0 Benign prostatic hyperplasia without lower urinary tract symptoms; Z12.5 Encounter for screening for malignant neoplasm of prostate
CPT/HCPCS: 36415; 80053; 80061; 81001; 84153

== ENCOUNTER 2025-07-14 12:25 | Emergency (ER) | payer OTHER, SELFPAY ==
--- NOTE | ~2025-07-14 | CT_ITS ---
CLINICAL HISTORY: diffuse lower abdominal pain radiating into testes Exam: Contrast-enhanced CT abdomen and pelvis with multiplanar reformats. Comparison: None. Findings: CT abdomen: Lung bases appear clear. Liver is free of focal lesions and ductal dilatation. Gallbladder is absent. Spleen appears unremarkable. Pancreas and adrenal glands appear unremarkable. Left kidney reveals punctate upper pole nonobstructing calculi (7; 71). Kidneys otherwise unremarkable. No ureteral stones or hydroureteronephrosis. No free intraperitoneal fluid or retroperitoneal masses or adenopathy. Abdominal aorta is normal caliber. Bowel loops reveal no abnormal wall thickening or distention. The appendix is unremarkable. No significant diverticular disease. CT pelvis: Prostate gland measures 4.6 cm transverse dimension, and reveals sub vesicle extension of BPH (8; 58 and 7; 61). Urinary bladder is free of other gross filling defects. No pelvic masses, fluid or adenopathy. Osseous structures reveal no destructive osseous lesions. Impression: 1. No acute abnormality or CT explanation for reported history of lower abdominal pain radiating into the testes. 2. Small nonobstructing left renal calculi. No ureteral stones or hydroureteronephrosis. This document has been electronically signed by: Carlos Cabrera MD on 07/14/2025 18:50:55
--- NOTE | ~2025-07-14 | XR_ITS ---
CLINICAL HISTORY: chest pain 1 view chest x-ray. Comparison: 11/14/2023 Findings: No consolidation or effusion. Cardiac and mediastinal contours appear stable. Bones unremarkable. Impression: 1. No acute pulmonary disease. This document has been electronically signed by: Carlos Cabrera MD on 07/14/2025 14:46:25
--- NOTE | ~2025-07-14 | US_ITS ---
CLINICAL HISTORY: B L testicular pain US scrotum with Doppler Comparison: None Technique: Real time sonographic imaging, including color-flow imaging, was performed by the machine feeder floorperson. Multiple office services representative static images were saved for review. Findings: Right testicle normal size and echotexture, 4.1 cm. Normal color flow and spectral tracing. Normal epididymis. No hydrocele or varicocele. Left testicle normal size and echotexture, 4.1 cm. Normal color flow and spectral tracing. Normal epididymis. Stage Hand notes indicate a left epididymal cysts, however this has not delineated on provided images. No hydrocele or varicocele. Impression: 1. Unremarkable scrotal ultrasound This document has been electronically signed by: Carlos Cabrera MD on 07/14/2025 20:19:59
--- NOTE | ~2025-07-14 | US_ITS ---
CLINICAL HISTORY: B L testicular pain US scrotum with Doppler Comparison: None Technique: Real time sonographic imaging, including color-flow imaging, was performed by the billiard table mechanic. Multiple security representative static images were saved for review. Findings: Right testicle normal size and echotexture, 4.1 cm. Normal color flow and spectral tracing. Normal epididymis. No hydrocele or varicocele. Left testicle normal size and echotexture, 4.1 cm. Normal color flow and spectral tracing. Normal epididymis. Sales Apprentice notes indicate a left epididymal cysts, however this has not delineated on provided images. No hydrocele or varicocele. Impression: 1. Unremarkable scrotal ultrasound This document has been electronically signed by: Carlos Cabrera MD on 07/14/2025 20:19:59
[2025-07-14 12:49] VITALS: BP 150/83; PULSE 84; RESP 16; TEMP 36.8; O2SAT 96; BMI 40.0
--- NOTE | 2025-07-14 12:52 | ED_ITS ---
HPI - Chest Pain General Chief Complaint: Chest Pain Stated Complaint: chest tightness, numbness in hands/leg Time Seen by Provider: 07/14/25 15:31 Source: patient, RN notes reviewed and old records reviewed Mode of arrival: ambulatory Limitations: no limitations History of Present Illness ED Provider: RADHA Ng HPI narrative: 55-year-old male with medical history of asthma, GERD, HLD, JOSE HTN, presents to ED due to chest and abdominal pain. Patient reports he has had progressively worsening lower abdominal pain over the last 10 days that radiates to B/L testicles and into the epigastric region. Patient reports he woke up this morning and after eating breakfast began to experience epigastric burning pain that radiated into his chest and down the L arm that he initially thought was GERD symptoms. Patient [place] the [place] around when the chest pain got worse. Patient reports getting anxious over the pain and started to experience numbness and tingling in his hands that lasted for approximately 1 hour before resolving. Patient reports he is being seen by urology for enlarged prostate and weak urinary stream. Denies nausea, vomiting, lightheadedness, dizziness, headaches, visual changes, black/tarry stool, painful urination Related Data Home Medications ?Medication ?Instructions ?Recorded ?Confirmed albuterol sulfate 90 mcg/actuation 2 puff PO Q4-6H PRN Shortness Of 11/06/20 12/25/22 aerosol inhaler Breath amlodipine 5 mg-valsartan 160 mg 1 tab PO DAILY tablet omeprazole 40 mg capsule,delayed 40 mg PO DAILY release pravastatin 20 mg tablet mg PO 10/18/23 sucralfate 100 mg/mL oral 10 ml PO QID 10/18/23 suspension Allergies Allergy/AdvReac Type Severity Reaction Status Date / Time atorvastatin (Lipitor) Allergy Severe Joint Pain Verified 07/14/25 12:51 shellfish derived Allergy Severe DIFFICULTY Verified 07/14/25 12:51 BREATHING Review of Systems 2 Review of Systems: Yes all other systems are reviewed and are negative PMFSH Past Medical History Attestation statement: The following information was validated with the patient. Source: old records reviewed and nursing notes reviewed Medical History Obesity Back pain GERD (gastroesophageal reflux disease) Hyperlipidemia Hypertension Morbid obesity High cholesterol Asthma Surgical History History of esophagogastroduodenoscopy (EGD) S/P panniculectomy Hx of cholecystectomy Family History Family History Father No problems noted. Mother Myocardial infarction Brother No problems noted. Brother No problems noted. Sister No problems noted. Sister No problems noted. Sister No problems noted. Sister No problems noted. Sister No problems noted. Son No problems noted. Son No problems noted. Son No problems noted. 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 HEENT: ?NC, AT. MMM. EOMI, clear conjunctiva, oropharynx clear. NECK: ?Supple without lymphadenopathy.? No stiffness or restricted ROM. HEART:? Normal rate and regular rhythm, normal S1/S2, no m/r/g LUNGS:? CTAB, moving air well. No crackles or wheezes are heard. ABDOMEN: ?Soft, nondistended, no rigidity, negative Panchal's sign, no rebound tenderness, significant tenderness to RLQ, and LLQ, no overlying skin changes : B/L testicular tenderness to palpation, no testicular edema, warmth or erythema, no edema to the penile shaft, no discharge from meatus BACK: No CVAT, no obvious deformity. EXTREMITIES: ?Without cyanosis, clubbing or edema. NEUROLOGICAL: ?Grossly nonfocal. Alert and oriented, moving all 4 extremities. Observed to ambulate with normal gait. Skin: ?Warm and dry without any rash. Course Course Course Narrative: This is a RME preformed in triage by Day Atkinson PA-C. Date:07/14/25, time 1250. Patient presents with epigastric pain. Renato presents to the ED with new numbness involving one arm and one leg that began this morning at approximately 10:00 AM after breakfast while ?getting ready to go help.? Concurrently, he notes chest tightness described as a ?ball? in the mid-chest, similar to prior episodes of severe acid reflux. Earlier in the day he rated the discomfort an 8/10; at the time of interview it was a 6/10. He took his usual morning esomeprazole and, about one hour prior to arrival, took one Tums with mild relief. He reports that rubbing the chest can temporarily lessen the discomfort. No radiation of pain reported. He denies loss of hand sensation (?I can feel my hands fine?). Additional symptoms include intermittent pain related to an enlarged prostate (awaiting scheduled ultrasound) and escalating anxiety surrounding his current symptoms. 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 Review of Systems: * Neurologic: Positive for numbness in arm and leg; feels hands normally. * Cardiovascular/Chest: Positive for chest tightness described above. * Gastrointestinal: Positive for heartburn/acid reflux-type pain. * Genitourinary: Positive for prostate pain. * Psychiatric: Reports increased anxiety. Work UP: abd labs, trop, CXR, EKG Will defer full ROS and PE to treating provider. Patient will continued to be monitored in the interim. Medications Administered Discontinued Medications Generic Name Dose Route Start Last Admin Trade Name Freq PRN Reason Stop Dose Admin Al Hydroxide/Mg Hydroxide 15 ml 07/14/25 16:10 07/14/25 16:23 Magnesium Hydrox/Alum Hydrox 30 Ml Oral.Susp PO 07/14/25 16:11 15 ml ONCE ONE Administration Iohexol 100 ml 07/14/25 17:04 07/14/25 17:04 Iohexol 350 Mg/Ml 100 Ml Infus..Btl IV 07/14/25 17:05 85 ml ONCE ONE Administration Lidocaine HCl 15 ml 07/14/25 16:10 07/14/25 16:23 Lidocaine Hcl Viscous 2 % 15 Ml Solution MUCOUS MEM 07/14/25 16:11 15 ml ONCE ONE Administration Medical Decision Making Medical Decision Making [facility] Narrative: 55-year-old male with medical history of asthma, GERD, HLD, JOSE HTN, presents to ED due to chest and abdominal pain. Patient reports he has had progressively worsening lower abdominal pain over the last 10 days that radiates to B/L testicles and into the epigastric region. Patient reports he woke up this morning and after eating breakfast began to experience epigastric burning pain that radiated into his chest and down the L arm that he initially thought was GERD symptoms. Patient [place] he [place] the mall walking around when the chest pain got worse. Patient reports getting anxious over the pain and started to experience numbness and tingling in his hands that lasted for approximately 1 hour before resolving. Patient reports he is being seen by urology for enlarged prostate and weak urinary stream. VS on initial observation-BP 150/83, pulse rate of 84, respiratory rate of 16, afebrile with oral temp of 98.2, O2 saturation 96 percent on room air. On physical exam patient is well-appearing, nontoxic appearing, no acute distress, lungs clear to auscultation bilaterally, cardiac exam reveals normal rate and rhythm without murmurs/rubs/gallops, abdomen is soft, nondistended, no rigidity, negative Panchal's sign, no rebound tenderness however patient with significant tenderness to diffuse lower abdomen, exam reveals B/L testicular tenderness to palpation without edema, erythema or warmth to the area, no edema of penile shaft, no discharge from meatus, Lower extremities without edema, or overlying skin changes Plan: Labs, EKG, CXR, CT abdomen/pelvis EKG reveals atrial flutter, the image looks like artifact, QRS complexes match up, P waves are present. I had my attending physician Dr. Epstein evaluate the EKG as well and he agreed with me that the EKG shows sinus rhythm and repeat is necessary. I am obtaining 2nd for further evaluation. Repeat EKG: normal sinus rhythm with incomplete RBBB, no ST elevation/depression, troponin x2 undetectable at <2.7- less likely ACS Labs without leukocytosis/leukopenia, no evidence of anemia, no electrolyte abnormalities, ALT mildly elevated at 54. UA negative for blood or bacteria CT abdomen and pelvis reveals small nonobstructing left renal calculi without ureteral stones or hydroureteronephrosis. These findings were discussed with the patient and his who is at the bedside U/S scrotum Doppler Patient with 10 days of lower abdominal pain radiating into bilateral testicles, with an episode of epigastric pain and burning that radiated into his chest down the left arm with numbness and tingling of bilateral hands that lasted for approximately 1 hour before resolving. Patient is afebrile, labs without leukocytosis. EKG with normal sinus rhythm, incomplete RBBB without ST- elevation/depression, troponins x2 undetectable. CT abdomen and pelvis without acute intra-abdominal pathology. U/S scrotum Doppler without acute findings I have placed consult to cardiology as I believe patient may need further evaluation with holter monitor/ stress test. Patient low risk with HEART score of 3 points due to risk factors of HTN, HLD and BMI >30. Patient does have history of GERD and Hpylori. Patients chest pain had originally started out as epigastric burning pain that radiates into the chest. Patient does endorse increased anxiety when symptoms started which explains episode of B/L hand tingling. Patient is currently taking omeprazole BID for management of GERD. Patient states his insurance recently changed and is getting reestablished with [facility]. I have placed referral to [facility] for follow up. I counseled patient to follow up with his primary care doctor. I counseled patient on strict return precautions. Patient feels well enough to go home for self-care at this time. Patient and his are in agreement with the plan. Differential Diagnosis Differential Diagnoses: The differential diagnosis associated with the presentation includes ACS Dysrhythmia Electrolyte abnormality UTI Diverticulitis Inguinal hernia Femoral hernia Testicular torsion Spermatocele Hydrocele Admission/Observation Consideration of admission/observation: Escalation of care including admission/observation considered Lab Data MDM Lab Attestation statement: I reviewed the patient's lab results. 07/14/25 13:12 07/14/25 13:12 Labs: Lab Results 07/14/25 07/14/25 Range/Units 13:12 16:35 WBC 8.2 (4.8-10.8) X10*3/uL RBC 5.26 (4.60-5.80) X10*6/uL Hgb 15.1 (14.0-18.0) g/dl Hct 43.7 (42.0-52.0) % MCV 83.1 (80.0-98.0) fL MCH 28.7 (27.0-33.0) pg MCHC 34.6 (31.0-36.0) g/dl RDW 12.4 (11.0-16.0) % Plt Count 201 (160-400) X10*3/uL MPV 9.6 (9.4-12.4) fL Immature Gran % (Auto) 0.4 (0.0-0.4) % Neut % (Auto) 44.8 L (45-73) % Lymph % (Auto) 44.9 H (20-40) % [place] % (Auto) 6.4 (2-11) % Eos % (Auto) 2.6 (0-4) % Baso % (Auto) 0.9 (0-2) % Lymph # (Auto) 3.7 (1.2-4.9) X10*3/uL [place] # (Auto) 0.5 (0.1-1.2) X10*3/uL Eos # (Auto) 0.2 (0.0-0.4) X10*3/uL Baso # (Auto) 0.1 (0.0-0.2) X10*3/uL Abs Immat Gran (auto) 0.03 (0.00-0.03) X10*3/uL Absolute Neuts (auto) 3.7 (2.0-8.3) x10*3/uL Absolute Nucleated RBC 0.000 (0.0-0.012) X10*3/uL Nucleated RBC % (auto) 0.0 (0.0-0.2) /100WBC Sodium 138 (135-145) mmol/L Potassium 3.8 (3.3-5.1) mmol/L Chloride 105 (96-108) mmol/L Carbon Dioxide 25 (22-29) mmol/L Anion Gap 12 (12-20) BUN 16 (9-16) mg/dL Creatinine 0.70 (0.5-1.4) mg/dL Estim Creat Clear Calc 162.8 Estimated GFR > 60 Random Glucose 98 (60-115) mg/dL Calcium 9.2 (8.4-10.2) mg/dL Magnesium 2.1 (1.6-2.6) mg/dL Total Bilirubin 0.8 (0.0-1.0) mg/dL AST 34 (5-37) U/L ALT 54 H (0-40) U/L Alkaline Phosphatase 107 (39-117) U/L Troponin I High Sens < 2.7 < 2.7 (<3.5-35.0) ng/L Total Protein 7.7 (6.5-8.0) g/dL Albumin 4.4 (3.5-5.0) g/dL Lipase 28 (8-78) U/L Urine Color Yellow Urine Appearance Clear Urine pH 5.5 (5.0-9.0) Ur Specific [place] 1.025 (1.005-1.025) Urine Protein Negative (Neg-Trace) mg/dL Urine Glucose (UA) Negative (Negative) mg/dL Urine Ketones Trace (Negative) mg/dL Urine Blood Negative (Negative) Urine Nitrite Negative (Negative) Ur Leukocyte Esterase Negative (Negative) Urine RBC 0-2 (0-2) /HPF Urine WBC 0-5 (0-5) /HPF Ur Squamous Epith Cells 0-2 (0-2) /HPF Urine Bacteria None Seen (None Seen) Hyaline Casts 0-2 (0-2) /LPF Independent Interpretation I performed an independent interpretation of an: EKG, Ultrasound and CT Scan Interpretation: I personally interpreted the EKG which reveals normal sinus rhythm with an incomplete RBBB, no ST-elevation/depression, no lengthened QT Vent. Rate : 80 BPM Atrial Rate : 80 BPM P-R Int : 176 ms QRS Dur : 106 ms QT Int : 380 ms P-R-T Axes : 56 16 44 degrees QTcB Int : 438 ms Normal sinus rhythm Incomplete right bundle branch block Borderline ECG When compared with ECG of 14-Jul-2025 13:04, Sinus rhythm has replaced Atrial flutter I personally interpreted the CT abdomen and pelvis which was negative for acute intra-abdominal pathology, I agree with the radiologist's interpretation I personally interpreted the U/S scrotal Doppler Radiology Impression Discussion of test interpretation with radiology: I have reviewed the radiologist's reading. Radiologist Impression: CT abdomen/pelvis Findings: CT abdomen: Lung bases appear clear. Liver is free of focal lesions and ductal dilatation. Gallbladder is absent. Spleen appears unremarkable. Pancreas and adrenal glands appear unremarkable. Left kidney reveals punctate upper pole nonobstructing calculi (7; 71). Kidneys otherwise unremarkable. No ureteral stones or hydroureteronephrosis. No free intraperitoneal fluid or retroperitoneal masses or adenopathy. Abdominal aorta is normal caliber. Bowel loops reveal no abnormal wall thickening or distention. The appendix is unremarkable. No significant diverticular disease. CT pelvis: Prostate gland measures 4.6 cm transverse dimension, and reveals sub vesicle extension of BPH (8; 58 and 7; 61). Urinary bladder is free of other gross filling defects. No pelvic masses, fluid or adenopathy. Osseous structures reveal no destructive osseous lesions. Impression: 1. No acute abnormality or CT explanation for reported history of lower abdominal pain radiating into the testes. 2. Small nonobstructing left renal calculi. No ureteral stones or hydroureteronephrosis. This document has been electronically signed by: Carlos Cabrera MD on 07/14/2025 18:50:55 Dictated By: Carlos Cabrera MD Signed By: <Electronically signed by Carlos Cabrera MD in OV> 07/14/25 1852 U/S scrotum Doppler Independent Historian Clinical information obtained from an independent historian. History obtained from or confirmed by: Spouse ( at bedside corroborating history) External Record Review External record reviewed: Inpatient record, Office record, Outpatient record and Prior outpatient labs Chronic Conditions Patient?s care impacted by: Hypertension and Other (GERD, JOSE, HLD, asthma) Discharge Plan Discharge Clinical Impression: Atypical chest pain, Abdominal pain Patient Disposition: Home, Self-Care Additional Instructions: You were evaluated in the emergency department for chest pain, and abdominal pain. Your blood work was reassuring as there is no significant increase or decrease in your white blood cell count indicative of systemic infection. Your lipase which is an enzyme that the pancreas gives off when under stress or damage was within normal limits. Your EKG did not have an emergent pattern, your troponin which is a protein that the heart gives off when under stress or damage were both negative today at < 2.7. Your chest x-ray was normal. The CT of your abdomen and pelvis revealed a small non obstructing stone of the L kidney. Your prostate is enlarged. There were no emergent findings today. I have placed referral to [facility] and [facility]. You need to call their office as Wednesday morning and get established with them as they will not call you. I recommend that you follow up with your primary care doctor to ensure resolution of your symptoms. Please return to the emergency department if you have worsening chest pain, worsening abdominal pain, fevers over 100.4 degrees, inability to have a bowel movement, or any new/worsening/concerning symptoms. Prescriptions: No Action albuterol sulfate 90 mcg/actuation HFA aerosol inhaler 2 puff PO Q4-6H PRN (Reason: Shortness Of Breath) sucralfate 100 mg/mL suspension 10 ml PO QID omeprazole 40 mg capsule,delayed release(DR/EC) 40 mg PO DAILY pravastatin 20 mg tablet PO amlodipine-valsartan 5-160 mg tablet 1 tab PO DAILY Referrals: [facility] [Provider Group] [facility] [Provider Group, Gastroenterology] Print Language: Tamazight
--- NOTE | 2025-07-14 12:55 | ECG_ITS ---
Test Reason : CP Blood Pressure : */* mmHG Vent. Rate : 81 BPM Atrial Rate : 277 BPM P-R Int : * ms QRS Dur : 100 ms QT Int : 370 ms P-R-T Axes : 92 16 52 degrees QTcB Int : 429 ms Normal sinus rhythm Nonspecific ST abnormality Abnormal ECG When compared with ECG of 14-Nov-2023 14:46, Nonspecific ST abnormality is present, could be related to poor quality Referred By: Day Atkinson Electronically Signed By: ISAURO CABRERA MD
[2025-07-14 13:17] LABS: MANUAL DIFF FLAG NO
[2025-07-14 13:28] LABS: Hematocrit 43.7 % (42.0-52.0); Hemoglobin 15.1 g/dl (14.0-18.0); Imm Gran Abs Auto 0.03 X10*3/uL (0.00-0.03); Imm Gran Pct Auto 0.4 % (0.0-0.4); Lymphocytes Absolute Auto 3.7 X10*3/uL (1.2-4.9); Mean Corpuscular HGB Conc 34.6 g/dl (31.0-36.0); Mean Corpuscular Hemoglobin 28.7 pg (27.0-33.0); Mean Corpuscular Volume 83.1 fL (80.0-98.0); NRBC Abs Auto 0.000 X10*3/uL (0.0-0.012); NRBC Pct Auto 0.0 /100WBC (0.0-0.2); Platelet Count 201 X10*3/uL (160-400); Red Blood Count 5.26 X10*6/uL (4.60-5.80); White Blood Count 8.2 X10*3/uL (4.8-10.8)
[2025-07-14 13:32] LABS: Alanine Aminotransferase 54 U/L (0-40); Albumin Level 4.4 g/dL (3.5-5.0); Alkaline Phosphatase 107 U/L (39-117); Anion Gap 12 (12-20); Aspartate Amino Transferase 34 U/L (5-37); Blood Urea Nitrogen 16 mg/dL (9-16); Calcium 9.2 mg/dL (8.4-10.2); Carbon Dioxide 25 mmol/L (22-29); Chloride 105 mmol/L (96-108); Creatinine Clr Calc Pharmacy 162.8; Estimated Glomerular Filt Rate > 60; Lipase 28 U/L (8-78); Magnesium 2.1 mg/dL (1.6-2.6); Potassium 3.8 mmol/L (3.3-5.1); Sodium 138 mmol/L (135-145); Total Protein 7.7 g/dL (6.5-8.0)
[2025-07-14 13:40] LABS: Troponin-I High Sensitivity < 2.7 ng/L (<3.5-35.0)
--- NOTE | 2025-07-14 15:35 | ECG_ITS ---
Test Reason : CP Blood Pressure : */* mmHG Vent. Rate : 80 BPM Atrial Rate : 80 BPM P-R Int : 176 ms QRS Dur : 106 ms QT Int : 380 ms P-R-T Axes : 56 16 44 degrees QTcB Int : 438 ms Normal sinus rhythm Incomplete right bundle branch block Borderline ECG When compared with ECG of 14-Jul-2025 13:04, No significant changes seen Referred By: Jojo Ng Electronically Signed By: ISAURO CABRERA MD
--- OUTSIDE RECORDS SUMMARY | 2025-07-14 15:40 | XMS_ITS | Encounter Summary ---
Author Organization [employer] Address [address] [place] [address] Care Team Providers Care Household Appliance Assembler Name Role Phone Name, José Miguel GO Primary Care Provider [phone] Reason for Visit * Reason Comments Med Refill Encounter Details Date Type Department Care Team ([facility] st Contact Info) Description 09/19/2024 Refill [facility] [address] [place], [place] [phone] Name, MD José Miguel [address] [place] [address] Social History Tobacco Use Types Packs/Day Years [...] documented as of this encounter Care Teams Household Appliance Assembler Relationship Specialty Start Date End Date Name, MD José Miguel [address] [place] [id number] PCP - General Family Medicine 10/02/15 documented as of this encounter
--- OUTSIDE RECORDS SUMMARY | 2025-07-14 15:40 | XMS_ITS | Encounter Summary ---
Author Organization [employer] Address [address] [facility] [address] [place] [address] Care Team Providers Care Tetryl Blender Operator Name Role Phone Name, José Miguel GO Primary Care Provider [phone] Reason for Visit * Reason Onset Date Comments Med Refill 03/16/2024 Encounter Details Date Type Department Care Team ([facility] st Contact Info) Description 03/16/2024 Refill [facility] [address] [place], [place] [phone] Name, MD José Miguel [address] [place] [address] Social History Tobacco Use Types Packs/Day Years [...] documented as of this encounter Care Teams Tetryl Blender Operator Relationship Specialty Start Date End Date Name, MD José Miguel [address] [place] [address] PCP - General Family Medicine 10/02/15 documented as of this encounter
--- OUTSIDE RECORDS SUMMARY | 2025-07-14 15:40 | XMS_ITS | Encounter Summary ---
Author Organization [employer] Address [address] [facility] [address] [place] [address] Care Team Providers Care Senior Net Developer Architect Name Role Phone Name, José Miguel GO Primary Care Provider Reason for Visit * Reason Onset Date Comments Med Refill 03/15/2024 Encounter Details Date Type Department Care Team ([facility] st Contact Info) Description 03/15/2024 Refill [facility] [address] [place], [place] [phone] Name, MD José Miguel [address] [place] [address] Social History Tobacco Use Types Packs/Day Years [...] documented as of this encounter Care Teams Senior Net Developer Architect Relationship Specialty Start Date End Date Name, MD José Miguel [address] [place] [address] PCP - General Family Medicine 10/02/15 documented as of this encounter
--- OUTSIDE RECORDS SUMMARY | 2025-07-14 15:40 | XMS_ITS | Encounter Summary ---
Author Organization [employer] Address [address] [facility] [address] [place] [address] Care Team Providers Care Printed Circuit Designer Name Role Phone Name, José Miguel GO Primary Care Provider [phone] Encounter Details Date Type Department Care Team ([facility] Contact Info) Description 07/14/2025 Orders Only GENERIC EXTERNAL DATA DEPARTMENT Provider, Generic External Data Social History Tobacco Use Types Packs/Day Years [...] on file documented as of this encounter Procedures Procedure Name Priority Date/Time Associated Diagnosis Comments XR CHEST 1 VIEW Routine 07/14/2025 2:46 PM EST HIGH SENSITIVITY TROPONIN I Routine 07/14/2025 1:12 PM EST CBC WITH AUTO DIFFERENTIAL Routine 07/14/2025 1:12 PM EST MAGNESIUM Routine 07/14/2025 1:12 PM EST LIPASE Routine 07/14/2025 1:12 PM EST COMPREHENSIVE METABOLIC PANEL Routine 07/14/2025 1:12 PM EST documented in this encounter Results * XR Chest 1 View (07/14/2025 2:46 PM EST) Anatomical Region Laterality Modality Chest Radiographic Martha ging 07/14/2025 2:46 PM EST Narrative 07/14/2025 2:48 PM EST [place] [address] XRay Report Signed Patient: Jose Canseco MR#: [id number] 359 : 1970 Acct:[id number] Age/Sex: 55 / M ADM Date: 07/14/25 Loc: HO.ED Attending Dr: Ordering Physician: Day Atkinson PA-C Date of Service: 07/14/25 Procedure(s): XR chest 1V Accession Number(s): [id number] cc: Olya,José Miguel GO; Pressey,Day PA-C Reason for Exam: chest pain CLINICAL HISTORY: chest pain 1 view chest x-ray. Comparison: 11/14/2023 Findings: No consolidation or effusion. Cardiac and mediastinal contours appear stable. Bones unremarkable. Impression: 1. No acute pulmonary disease. This document has been electronically signed by: Carlos Cabrera MD on 07/14/2025 14:46:25 Dictated By: Carlos Cabrera MD Signed By: <Electronically signed by Carlos Cabrera MD in OV> 07/14/251446 DD/ 45 TD/TT: 07/14/251445 Research Worker Kitchen: Procedure Note Donotuseinterpreter, Image - 07/14/2025 [place] [address] XRay Report Signed Patient: Jose Canseco HMR#: [id number] 359 : 1970Acct:[id number] Age/Sex: 55 / MADM Date: 07/14/25 Loc: HO.ED Attending Dr: Ordering Physician: Day Atkinson PA-C Date of Service: 07/14/25 Procedure(s): XR chest 1V Accession Number(s): [id number] cc: Name,José Miguel GO; Day Atkinson PA-C Reason for Exam: chest pain CLINICAL HISTORY: chest pain 1 view chest x-ray. Comparison: 11/14/2023 Findings: No consolidation or effusion. Cardiac and mediastinal contours appear stable. Bones unremarkable. Impression: 1. No acute pulmonary disease. This document has been electronically signed by: Carlos Cabrera MD on 07/14/2025 14:46:25 Dictated By: Carlos Cabrera MD Signed By: <Electronically signed by Carlos Cabrera MD in OV> 07/14/25 144 DD/ 45 TD/TT: 07/14/251445 Research Worker Kitchen: [facility] External Provider IMG XR PROCEDURES Final Result * High Sensitivity Troponin I (07/14/2025 1:12 PM EST) TROPONIN I HIGH SENSITIVITY <2.7 <3.5 - 35.0 ng/L [facility] Comment:The Rosario high sens itivity Troponin-I results should beused in conjunction with other diagnostic information suchas ECG, clinical observations and information, and patientsymptoms to aid in the diagnosis of [place]. 07/14/2025 1:12 PM EST 07/14/2025 1:16 PM EST Generic External Data Provider LAB BLOOD ORDERAB LES Final Result Performing Organization Address [facility] Co de Phone Number [facility] [address] [place] [phone] * Lipase (07/14/2025 1:12 PM EST) [facility] Lipase 28 8 - 78 U/L [facility] 07/14/2025 1:12 PM EST 07/14/2025 1:16 PM EST Generic External Data Provider LAB BLOOD ORDERAB LES Final Result Performing Organization Address [facility] Co pa Phone Number [facility] [address] [place] [phone] * Magnesium (07/14/2025 1:12 PM EST) [facility] Magnesium 2.1 1.6 - 2.6 mg/dL [facility] 07/14/2025 1:12 PM EST 07/14/2025 1:16 PM EST Generic External Data Provider LAB BLOOD ORDERAB LES Final Result Performing Organization Address [facility] de Phone Number [facility] [address] [place] [phone] * (ABNORMAL) Comprehensive Metabolic Panel (07/14/2025 1:12 PM EST) [facility] Sodium 138 135 - 145 mmol/L [facility] Potassium 3.8 3.3 - 5.1 mmol/L [facility] Chloride 105 96 - 108 mmol/L [facility] Carbon Dioxide 25 22 - 29 mmol/L [facility] Anion Gap 12 12 - 20 [facility] Urea Nitrogen (BUN) 16 9 - 16 mg/dL [facility] Creatinine, Serum 0.70 0.5 - 1.4 mg/dL [facility] Creatinine Clr Calc Pharmacy 162.8 [facility] Comment:eGFR (calculated fro m the MDRD study equation) and eCrCl(calculated from the Cockcroft-Gault equation) are based ondifferent parameters and may not yield comparable results.If eCrCl result is absurd, please check patient'sheight/weight. Estimated Glomerular Filt Rate >60 [facility] Comment:Chronic Kidney Disea se: Estimated GFR < 60 mL/min/1.85d0Kdvhxw Kidney Disease: Estimated GFR < 15 mL/min/1.73m2 Glucose 98 60 - 115 mg/dL [facility] Calcium 9.2 8.4 - 10.2 mg/dL [facility] Bilirubin, Total 0.8 0.0 - 1.0 mg/dL [facility] Aspartate Amino Transferase 34 5 - 37 U/L [facility] Alanine Aminotransferase 54(H) 0 - 40 U/L [facility] Total Protein 7.7 6.5 - 8.0 g/dL [facility] Albumin Level 4.4 3.5 - 5.0 g/dL [facility] Alkaline Phosphatase 107 39 - 117 U/L [facility] 07/14/2025 1:12 PM EST 07/14/2025 1:16 PM EST us Generic External Data Provider LAB BLOOD ORDERAB LES Final Result [facility] [address] [place] [phone] * (ABNORMAL) CBC auto differential (07/14/2025 1:12 PM EST) White Blood Count 8.2 4.8 - 10.8 X10*3/uL [facility] Red Blood Count 5.26 4.60 - 5.80 X10*6/uL [facility] Hemoglobin 15.1 14.0 - 18.0 g/dl [facility] Hematocrit 43.7 42.0 - 52.0 % [facility] Mean Corpuscular Volume 83.1 80.0 - 98.0 fL [facility] Mean Corpuscular Hemoglobin 28.7 27.0 - 33.0 pg [facility] Mean Corpuscular HGB Conc 34.6 31.0 - 36.0 g/dl [facility] Red Cell Distribution Width 12.4 11.0 - 16.0 % [facility] Platelet Count 201 160 - 400 X10*3/uL [facility] Mean Platelet Volume 9.6 9.4 - 12.4 fL [facility] Neutrophils Percent Auto 44.8(L) 45 - 73 % [facility] Imm Gran Pct Auto 0.4 0.0 - 0.4 % [facility] Lymphocytes Percent Auto 44.9(H) 20 - 40 % [facility] Monocytes Percent Auto 6.4 2 - 11 % [facility] Eosinophils Percent Auto 2.6 0 - 4 % [facility] Basophils Percent Auto 0.9 0 - 2 % [facility] NRBC Pct Auto 0.0 0.0 - 0.2 /100WBC [facility] Neutrophils Absolute Auto 3.7 2.0 - 8.3 x10*3/uL [facility] Imm Gran Abs Auto 0.03 0.00 - 0.03 X10*3/uL [facility] Lymphocytes Absolute Auto 3.7 1.2 - 4.9 X10*3/uL [facility] Monocytes Absolute Auto 0.5 0.1 - 1.2 X10*3/uL [facility] Eosinophils Absolute Auto 0.2 0.0 - 0.4 X10*3/uL [facility] Basophils Absolute Auto 0.1 0.0 - 0.2 X10*3/uL [facility] NRBC Abs Auto 0.000 0.0 - 0.012 X10*3/uL [facility] 07/14/2025 1:12 PM EST 07/14/2025 1:16 PM EST us Generic External Data Provider LAB BLOOD ORDERAB LES Final Result [facility] [address] [place] [phone] [phone] documented in this encounter Visit Diagnoses Not on filedocumented in this encounter Additional Health Concerns Assessment Noted Time PHQ-9 Depression Total Score: 0 08/23/19 24 2:53 PM EST documented as of this encounter Care Teams Printed Circuit Designer Relationship Specialty Start Date End Date Name, MD José Miguel [address] [place] [address] PCP - General Family Medicine 10/02/15 documented as of this encounter
--- OUTSIDE RECORDS SUMMARY | 2025-07-14 15:40 | XMS_ITS | Clinical Summary ---
Author Organization [employer] Address [address] [place] [address] 7[address] [place] [address] Care Team Providers Care Laborer Electroplating Name Role Phone Name, José Miguel GO Primary Care Provider [phone] Allergies Active Allergy Reactions Criticality Noted Date Comments Shellfish Protein-Containing Drug Products 11/19/2015 Medications sucralfate (Carafate) 1 GM/10ML suspension TAKE 10ML BY MOUTH FOUR TIMES DAILY 1200 mL 1 11/02/19 24 Active Wegovy 2.4 MG/0.75ML solution auto-injector INJECT ONE PEN (=2.4 MG) SUBCUTANEOUSLY ONCE A WEEK 3 mL 1 07/06/20 24 Active amLODIPine-vals mario (Exforge) 5-160 MG tablet Take 1 tablet by mouth Once per day. 30 tablet 09/19/19 25 026 Active hydroCHLOROthia zide 12.5 MG tablet Take 1 tablet (12.5 mg) by mouth Once per day. 30 tablet 09/19/19 25 026 Active albuterol (Ventolin HFA) 108 (90 Base) MCG/ACT inhalerIndicati ons:Hypertensio n, unspecified type Inhale 2 puffs every 4 hours 18 g 2 09/19/19 25 Active esomeprazole (NexIUM) [address] capsule Take 1 capsule (20 mg) by mouth before breakfast. Do not open capsule. 30 capsule 09/19/19 25 026 Active pravastatin (Pravachol) 20 MG tablet TAKE 1 TABLET BY MOUTH EVERY OTHER DAY 45 tablet 1 11/04/19 25 Active Active Problems Problem Noted Date Diagnosed Date Varicose veins of bilateral lower extremities wi th pain 01/23/2025 HLD (hyperlipidemia) 01/23/2025 HTN (hypertension) 01/23/2025 Severe obesity (BMI 35.0-39.9) with comorbidity ([facility]/HCC) 01/23/2025 JOSE (obstructive sleep apnea) 12/29/2023 Varicose veins of both lower extremities 024 Prostatism 08/18/2022 Cough 08/18/2022 Gastroesophageal reflux disease 09/13/2013 Obesity 12/13/2012 Hypertension 12/13/2012 Hypercholesterolemia 12/13/2012 Chest pain 12/13/2012 Asthma 12/13/2012 Resolved Problems Problem Noted Date Diagnosed Date Resolved Date Lymphocytosis 08/18/2022 10/05/2023 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 I have komal lorena 10/05/[address] you li [...] 75 09/19/2024 1:49 PM EST Temperature 36.7 C (98.1 F) 09/19/2024 1:49 PM EST Respiratory Rate 18 09/19/2024 1:49 PM EST [...] FOBT 1970 HIV Screening 1970 Sigmoidoscopy 1970 Disability Screening 1970 Alcohol/Substance Use Screening 1984 Hepatitis B Vaccines (1 of 3 - 19+ 3-dose series) 01/07/1991 Pneumococcal Vaccine: 50+ Years (2 of 2 - PCV) 04/12/2014 04/12/2013 RSV Patients and Patients Aged 60 years or older (1 - Risk 50-74 years 1-dose series) 01/07/2022 Zoster Vaccines (1 of 2) 01/07/2022 Depression Screening 08/23/2024 08/23/2023, 08/23/19 24 COVID-19 Vaccine (4 - season) 2025 07/30/2021, 11/28/2020, 10/31/2020 Influenza Vaccine (#1) 2025 , 08/18/2022, 05/22/2020, Additional history exists SDOH Screening 09/11/2025 09/11/2024 Tobacco Screening 09/19/2025 09/19/2024 Lipid Panel 09/19/2029 09/19/2024, 02/0 08/2023, 09/12/2022, Additional history exists DTaP/Tdap/Td Vaccines (2 - Td or Tdap) 03/02/2031 03/02/2021 Colonoscopy 12/25/2032 12/25/2022 Colorectal Cancer Screening 12/25/2032 Hepatitis C Screening Completed 10/16/2020 HIB Vaccines Aged Out No longer eligi [...] patient's age to complete this topic Meningococcal B Vaccine Aged Out No l onger eligible based on patient's age to complete [...] TROPONIN I Routine 07/14/2025 1:12 PM EST LIPASE Routine 07/14/2025 1:12 PM EST MAGNESIUM Routine 07/14/2025 1:12 PM EST COMPREHENSIVE METABOLIC PANEL Routine 07/14/2025 1:12 PM EST CBC WITH AUTO DIFFERENTIAL Routine 07/14/2025 1:12 PM EST LIPID PANEL, STANDARD Routine 09/19/2024 2:42 PM EST Hypercholesterolem ia HM COLONOSCOPY Routine 12/25/2022 ZZZ HISTORICAL HEPATITIS C AB W/REFL TO HCV RNA, QN, PCR Routine 10/16/2020 3:21 PM EDT from Last 3 Months or Most Recently Relevant to Health Maintenance Results * XR Chest 1 View (07/14/2025 2:46 PM EST) Anatomical Region Laterality Modality Chest Radiographic Martha ging 07/14/2025 2:46 PM EST Narrative 07/14/2025 2:48 PM EST [place] [address] XRay Report Signed Patient: Jose Canseco MR#: [id number] 359 : 1970 Acct:[id number] Age/Sex: 55 / M ADM Date: 07/14/25 Loc: .ED Attending Dr: Ordering Physician: Day Atkinson PA-C Date of Service: 07/14/25 Procedure(s): XR chest 1V Accession Number(s): [id number] cc: Name,José Miguel GO; Day Atkinson PA-C [...] by Carlos Cabrera MD in OV> 07/14/25 1447 DD/ 1446 TD/TT: 07/14/25 1446 Wood Casket Maker: Procedure Note Donotuseinterpreter, Image - 07/14/[address] [address] XRay Report Signed Patient: Jose Canseco HMR#: [id number] 359 : 1970Acct:[id number] Age/Sex: 55 / MADM Date: 07/14/25 Loc: HO.ED Attending Dr: Ordering Physician: Day Atkinson PA-C Date of Service: 07/14/25 Procedure(s): XR chest 1V Accession Number(s): [id number] cc: Name,José Miguel GO; Day Atkinson PA-C [...] by Carlos Cabrera MD in OV> 07/14/25 1447 DD/ 144 TD/TT: 07/14/251445 Wood Casket Maker: [facility] External Provider IMG XR PROCEDURES Final Result * High Sensitivity Troponin I (07/14/2025 1:12 PM EST) TROPONIN I HIGH SENSITIVITY <2.7 <3.5 - 35.0 ng/L [facility] Comment:The Rosario high sens itivity Troponin-I results should beused in conjunction with other diagnostic information suchas ECG, clinical observations and information, and patientsymptoms to aid in the diagnosis of [place]. 07/14/2025 1:12 PM EST 07/14/2025 1:16 PM EST Generic External Data Provider LAB BLOOD ORDERAB LES Final Result [facility] [address] [place] [address] [place] [phone] * (ABNORMAL) CBC auto differential (07/14/2025 1:12 PM EST) White Blood Count 8.2 4.8 - 10.8 X10*3/uL [facility] Red Blood Count 5.26 4.60 - 5.80 X10*6/uL [facility] Hemoglobin 15.1 14.0 - 18.0 g/dl [facility] Hematocrit 43.7 42.0 - 52.0 % [facility] Mean Corpuscular Volume 83.1 80.0 - 98.0 fL [facility] Mean Corpuscular Hemoglobin 28.7 27.0 - 33.0 pg [facility] Mean Corpuscular HGB Conc 34.6 31.0 - 36.0 g/dl [facility] Red Cell Distribution Width 12.4 11.0 - 16.0 % [facility] Platelet Count 201 160 - 400 X10*3/uL [facility] Mean Platelet Volume 9.6 9.4 - 12.4 fL [facility] Neutrophils Percent Auto 44.8(L) 45 - 73 % [facility] Imm Gran Pct Auto 0.4 0.0 - 0.4 % [facility] Lymphocytes Percent Auto 44.9(H) 20 - 40 % [facility] Monocytes Percent Auto 6.4 2 - 11 % [facility] Eosinophils Percent Auto 2.6 0 - 4 % [facility] Basophils Percent Auto 0.9 0 - 2 % [facility] NRBC Pct Auto 0.0 0.0 - 0.2 /100WBC [facility] Neutrophils Absolute Auto 3.7 2.0 - 8.3 x10*3/uL [facility] Imm Gran Abs Auto 0.03 0.00 - 0.03 X10*3/uL [facility] Lymphocytes Absolute Auto 3.7 1.2 - 4.9 X10*3/uL [facility] Monocytes Absolute Auto 0.5 0.1 - 1.2 X10*3/uL [facility] Eosinophils Absolute Auto 0.2 0.0 - 0.4 X10*3/uL [facility] Basophils Absolute Auto 0.1 0.0 - 0.2 X10*3/uL [facility] NRBC Abs Auto 0.000 0.0 - 0.012 X10*3/uL [facility] 07/14/2025 1:12 PM EST 07/14/2025 1:16 PM EST Generic External Data Provider LAB BLOOD ORDERAB LES Final Result Performing Organization Address [facility] Co de Phone Number [facility] [address] [place] [phone] * Magnesium (07/14/2025 1:12 PM EST) Magnesium 2.1 1.6 - 2.6 mg/dL [facility] 07/14/2025 1:12 PM EST 07/14/2025 1:16 PM EST Generic External Data Provider LAB BLOOD ORDERAB LES Final Result Performing Organization Address [facility] de Phone Number [facility] [address] [place] [phone] * Lipase (07/14/2025 1:12 PM EST) Lipase 28 8 - 78 U/L [facility] 07/14/2025 1:12 PM EST 07/14/2025 1:16 PM EST Generic External Data Provider LAB BLOOD ORDERAB LES Final Result Performing Organization Address [facility] de Phone Number [facility] [address] [place] [phone] * (ABNORMAL) Comprehensive Metabolic Panel (07/14/2025 1:12 PM EST) Sodium 138 135 - 145 mmol/L [facility] Potassium 3.8 3.3 - 5.1 mmol/L [facility] Chloride 105 96 - 108 mmol/L [facility] Carbon Dioxide 25 22 - 29 mmol/L [facility] Anion Gap 12 12 - 20 [facility] Urea Nitrogen (BUN) 16 9 - 16 mg/dL [facility] Creatinine, Serum 0.70 0.5 - 1.4 mg/dL [facility] Creatinine Clr Calc Pharmacy 162.8 [facility] Comment:eGFR (calculated fro m the MDRD study equation) and eCrCl(calculated from the Cockcroft-Gault equation) are based ondifferent parameters and may not yield comparable results.If eCrCl result is absurd, please check patient'sheight/weight. Estimated Glomerular Filt Rate >60 [facility] Comment:Chronic Kidney Disea se: Estimated GFR < 60 mL/min/1.85c5Dogyxq Kidney Disease: Estimated GFR < 15 mL/min/1.73m2 Glucose 98 60 - 115 mg/dL [facility] Calcium 9.2 8.4 - 10.2 mg/dL [facility] Bilirubin, Total 0.8 0.0 - 1.0 mg/dL [facility] Aspartate Amino Transferase 34 5 - 37 U/L [facility] Alanine Aminotransferase 54(H) 0 - 40 U/L [facility] Total Protein 7.7 6.5 - 8.0 g/dL [facility] Albumin Level 4.4 3.5 - 5.0 g/dL [facility] Alkaline Phosphatase 107 39 - 117 U/L [facility] 07/14/2025 1:1 2 PM EST 07/14/2025 1:16 PM EST us Generic External Data Provider LAB BLOOD ORDERAB LES Final Result [facility] [address] [place] [phone] * (ABNORMAL) Lipid Panel, Standard (09/19/2024 2:42 PM EST) Triglycerides 226(H) <150 mg/dL [facility] Comment:Desirable Triglyceri de: less than 150 mg/dLBorderline High Triglyceride 150-199 mg/dLHigh Triglyceride: 200-499 mg/dLVery High Triglyceride: greater than or equal to 5OO mg/dL Cholesterol 269(H) <200 mg/dL [facility] Comment:Desirable Cholestero l: less than 200 mg/dLBorderline High Cholesterol: 200-239 mg/dLHigh Cholesterol: greater than 239 mg/dL LDL Cholesterol Calculated 181(H) <100 mg/dL [facility] Comment:Desirable LDL: less than 100 mg/dLNear Optimal/Above Optimal LDL: 110- 129 mg/dLBorderline High LDL: 130-159 mg/dLHigh LDL: 160-189 mg/dLVery High LDL: greater than or equal to 190 mg/dL HDL Cholesterol 43 >40 mg/dL [facility] Comment:Desirable HDL: great er than 40 mg/dL Note: This HDL assay may give artificially low results in patients with liver disease. Blood Venous blood specimen / Unknown 09/19/2024 2:42 PM EST 09/19/2024 4:04 PM EST José Miguel Dobson MD LAB BLOOD ORDERABLES Final Resul t [facility] [address] [place] [phone] * Colonoscopy (12/25/2022) Pathologist [facility] Colonoscopy Normal Normal [facility] External Provider HEALTH MAINTENANCE Final Result * HEPATITIS C AB W/REFL TO HCV RNA, QN, PCR (10/16/2020 3:21 PM EDT) Pathologist [facility] HEPATITIS C ANTIBODY NON-REACT KATHY NON-REACT KATHY [facility] INDEX 0.01 <1.00 [facility] Comment: HCV antibody was non-reactive. There is no laboratory evidence of HCV infection. In most cases, no further action is required. However, if recent HCV exposure is suspected, a test for HCV RNA (test code 82159) is suggested. For additional information please refer to http://education.Digital Lab.Spazzles/faq/LYT48n7 (This link is being provided for informational/ educational purposes only.) 10/16/2020 3:21 PM EDT us José Miguel Dobson MD HISTORICAL/NON ORDERABLE LABS Fi nal Result Performing Organization Address City/State/[facility] Co de Phone Number [facility] [address] from Last 3 Months or Most Recently Relevant to Health Maintenance Insurance , [address] [place] [address] Care Teams Laborer Electroplating Relationship Specialty Start Date End Date Name, MD José Miguel [address] [place] [phone] PCP - General Family Medicine 10/02/15
[2025-07-14] MEDS: Magnesium Hydrox/Alum Hydrox 30 ML ORAL.SUSP 15 ML PO (16:23)
[2025-07-14] MEDS: Lidocaine HCl Viscous 2 % 15 ML SOLUTION MUCOUS MEM (16:23)
[2025-07-14 16:48] LABS: Appearance Urine Clear; Glucose Urine UA Negative (Negative); PH 5.5 (5.0-9.0); Specific Gravity - Urine 1.025 (1.005-1.025)
[2025-07-14] MEDS: iohexoL 350 MG/ML 100 ML INFUS..BTL IV (17:04)
[2025-07-14 17:24] LABS: Troponin-I High Sensitivity < 2.7 ng/L (<3.5-35.0)
[2025-07-14 19:51] VITALS: BP 130/84; PULSE 71; RESP 14; TEMP 36.6; O2SAT 94
[2025-07-14 20:55] VITALS: BP 117/80; PULSE 71; RESP 16; TEMP 36.7; O2SAT 94
[2025-07-14 21:23] VITALS: BP 117/80; PULSE 71; RESP 16; TEMP 36.7; O2SAT 94
== END 2025-07-14 21:23 | disposition home or self-care (01) ==
PROVIDERS: Physician Assistant Medical; Emergency Provider Emergency Medicine; PCP Internal Medicine Geriatric Medicine
DX: R07.89 Other chest pain (principal); R10.9 Unspecified abdominal pain; R20.0 Anesthesia of skin; N50.812 Left testicular pain; N50.811 Right testicular pain; I45.4 Nonspecific intraventricular block; R94.31 Abnormal electrocardiogram [ECG] [EKG]; K21.9 Gastro-esophageal reflux disease without esophagitis; I10 Essential (primary) hypertension; E78.5 Hyperlipidemia, unspecified; E78.00 Pure hypercholesterolemia, unspecified; J45.909 Unspecified asthma, uncomplicated; Z79.899 Other long term (current) drug therapy; Z79.51 Long term (current) use of inhaled steroids
CPT/HCPCS: 36415; 71045; 74177; 76870; 80053; 81001; 83690; 83735; 84484; 85025; 93005; 93975; 99285; Q9967

== ENCOUNTER → 2025-07-14 12:55 | Outpatient (BNV) | payer OTHER, SELFPAY | PROVIDERS: Emergency Provider Emergency Medicine; PCP Internal Medicine Geriatric Medicine; Visit Provider Internal Medicine Cardiovascular Disease | DX: R94.31 Abnormal electrocardiogram [ECG] [EKG] (principal); R07.9 Chest pain, unspecified; I45.10 Unspecified right bundle-branch block | CPT/HCPCS: 93010 ==

== ENCOUNTER → 2025-07-14 12:55 | Outpatient (BNV) | payer OTHER, SELFPAY | PROVIDERS: PCP Internal Medicine Geriatric Medicine; Visit Provider Radiology Diagnostic Radiology | DX: N20.0 Calculus of kidney (principal); N50.811 Right testicular pain; N50.812 Left testicular pain; R07.9 Chest pain, unspecified | CPT/HCPCS: 71045; 74177; 93975 ==